=== PATIENT | female | born 1970 | race Caucasian/White ===

== ENCOUNTER 2024-11-07 23:18 | Emergency (ER) | payer MEDICAID, SELFPAY ==
[2024-11-07 23:23] VITALS: PULSE 82; RESP 16; O2SAT 98
[2024-11-07 23:26] VITALS: BMI 26.9
[2024-11-07 23:50] VITALS: BP 123/85; PULSE 82; RESP 18; TEMP 36.6; O2SAT 98
--- NOTE | 2024-11-07 23:57 | XR_ITS ---
Examination: CT lumbar spine, without contrast. 2-D sagittal reconstructions. 2-D coronal reconstructions. 3-D reconstructions. Date and time of exam:November 08, 2024 0008 hours INDICATIONS: Patient fell today with injury to lower back, lower back pain CTDI: vol (mGy):27.7 DLP: (mGycm):1107 Technique: Multiple 1.25 mm axial sections of the lumbar spine without intravenous contrast have been obtained. 2-D sagittal and coronal reconstructions have been obtained. 3-D reconstructions have been obtained. Low dose protocols were performed. One or more of the following dose reduction techniques were used; automated exposure control, adjustment of the mA and/or KV according to patient size, use of iterative reconstruction technique. Findings: Prominent osteopenia Acute fracture fourth sacral segment without major displacement Chronic compression superior endplate L2 L4-L5 3 mm central lumbar disc bulge L3-L4 4 mm central lumbar disc bulge IMPRESSION: Acute fracture fourth sacral segment
--- NOTE | 2024-11-07 23:57 | XR_ITS ---
Examination: CT thoracic spine, without contrast. 2-D sagittal reconstructions. 2-D coronal reconstructions. 3-D reconstructions. Date and time of exam:November 08, 2024 0008 hours INDICATIONS: Patient fell today with injury to the upper back, upper back pain CTDI: vol (mGy):22.3 DLP: (mGycm):868 Technique: Multiple 1.25 mm axial sections of the thoracic spine without intravenous contrast have been obtained. 2-D sagittal and coronal reconstructions have been obtained. 3-D reconstructions have been obtained. Low dose protocols were performed. One or more of the following dose reduction techniques were used; automated exposure control, adjustment of the mA and/or KV according to patient size, use of iterative reconstruction technique. Findings: Prominent osteopenia grade 1 anterolisthesis C5 on C6 Acute fracture T4 vertebral body, depression superior endplate and small chip off the anterior superior margin of this vertebral body Nondisplaced fracture left pedicle T5, axial image 101 Mild acute appearing depression superior endplate T8 Acute fracture T9 vertebral body, reduction in height 30% Acute fracture bilateral pedicles T10, axial image 163 IMPRESSION: Acute fracture T4 vertebral body including small chip off the anterior superior margin of this vertebral body Acute fracture left pedicle T5 without displacement Acute fracture or depression superior endplate T8 Acute fracture T9 vertebral body reduction in height 30% Acute fractures bilateral pedicles T10
--- NOTE | 2024-11-07 23:58 | PD.EDRME ---
Rapid Medical Screening Exam RME Arrival date/time: 11/07/24 23:18 53-year-old female past medical history of chronic back pain presents emergency department complaining of mid and low back pain after suffering a ground-level fall which she landed on her side and reports she felt like she twisted her back. patient denies any injury to head or neck area with no LOC. Chief Complaint: Back Pain/Injury Time Seen by Provider: 11/07/24 23:54 Vital signs: Vital Signs Temperature 97.8 F 11/07/24 23:50 Pulse Rate 82 11/07/24 23:50 Respiratory Rate 18 11/07/24 23:50 Blood Pressure 123/85 H 11/07/24 23:50 Pulse Oximetry (%) 98 11/07/24 23:50 Oxygen Delivery Method Room Air 11/07/24 23:50 Vital signs reviewed by provider: Yes
[2024-11-08] MEDS: HYDROcodone/APAP 5/325 TABLET 1 TAB PO (00:18)
--- NOTE | 2024-11-08 01:44 | PRELIM_ITS ---
CT scan of the lumbar spine without intravenous contrast (axial sections with sagittal and coronal reformats) November 08, 2024 0008 hours 3D reconstructed images were also provided. Clinical History: Low back pain, status post ground level fall Comparison: No prior study is available for comparison. Findings: The evaluation is slightly limited due to motion artifacts. There is a chronic anterior wedge compression fracture of L2 vertebral body. There is no evidence of acute fracture or traumatic subluxation of the lumbar vertebrae. Degenerative changes are identified in the lumbar spine with multilevel mild spinal canal and neural foraminal narrowing. The sacroiliac joints are intact and demonstrate degenerative changes. There is an acute nondisplaced fracture of the distal body of the sacrum with minimal presacral hemorrhage (sagittal image 57-62/133 series 13). Impression: Acute nondisplaced fracture of the distal body of the sacrum with minimal presacral hemorrhage. Other findings as described above. Suggest clinical correlation and follow up accordingly. Discussion Details: Results verbally communicated to : Fracisco Kan, Nurse Practitioner at 01:27 AM 11/08/2024 Report Electronically Signed By: Deuce Burnett 11/08/2024 1:44:15 AM [EST]
--- NOTE | 2024-11-08 01:45 | PRELIM_ITS ---
CT scan of the thoracic spine without intravenous contrast (axial sections with sagittal and coronal reformats) November 08, 2024 0008 hours 3D reconstructed images were also provided. Clinical History: Mid back pain, status post ground level fall Comparison: No prior study is available for comparison. Findings: There is an acute wedge compression fracture of the T9 vertebral body with mild prevertebral hemorrhage. There is a subtle acute depressed superior endplate fracture of T4 vertebral body with associated anterosuperior corner fracture (sagittal image 62-67/124 series 12). There is subtle depressed superior endplate fracture of T8 vertebra, of indeterminate age. No evidence of retropulsion or spinal canal narrowing. The bones are osteopenic. Multilevel Schmorl's nodes are seen in the lower thoracic spine. Mild degenerative changes are identified in the spine. No significant central canal or neural foraminal narrowing. A small hiatal hernia is present. Gastric sleeve surgery changes are noted. Impression: 1. Acute wedge compression fracture of T9 vertebral body with mild prevertebral hemorrhage. 2. Subtle acute depressed superior endplate fracture of T4 vertebral body with associated anterosuperior corner fracture. 3. Subtle depressed superior endplate fracture of T8 vertebra, of indeterminate age. 4. No evidence of retropulsion or significant spinal canal narrowing. 5. Other findings as described above. Suggest clinical correlation and follow up accordingly. Please also refer to report of CT lumbar spine. Discussion Details: Results verbally communicated to : Fracisco Kan, Nurse Practitioner at 01:24 AM 11/08/2024 Report Electronically Signed By: Deuce Burnett 11/08/2024 1:44:39 AM [EST]
--- NOTE | 2024-11-08 02:30 | PD.EDBACK ---
ED Back Injury Pain RME/HPI General Chief Complaint: Back Pain/Injury Stated Complaint: BACK PAIN Time Seen by Provider: 11/07/24 23:54 Arrival date/time: 11/07/24 23:18 RME / HPI RME / HPI Narrative: 11/07/24 23:18 53-year-old female past medical history of chronic back pain presents emergency department complaining of mid and low back pain after suffering a ground-level fall which she landed on her side and reports she felt like she twisted her back. patient denies any injury to head or neck area with no LOC. --------- Dr. Betancur?s Main ED Evaluation: 53yo female presents to the ED for a chief complaint of mid and low back pain. Patient states she slipped and fell this morning while she was cleaning. She notes she was drinking alcohol this morning. She denies any head strikes or LOC. Denies any headache, neck pain, extremity pain or any other associated symptoms. Related Data Home Medications ?Medication ?Instructions ?Recorded ?Confirmed buspirone 15 mg tablet 15 mg PO TID #0 tabs 07/04/17 09/06/19 ipratropium 20 mcg-albuterol 100 2 puff inhalation QID PRN sob #0 07/04/17 09/06/19 mcg/actuation mist for inhalation inhalations (Combivent Respimat) ferrous sulfate 325 mg (65 mg 325 mg PO QDAY 04/08/18 09/06/19 iron) tablet (Iron (ferrous sulfate)) loratadine 10 mg tablet (Loradamed) 10 mg PO QDAY 04/08/18 09/06/19 potassium chloride 8 mEq 8 meq PO TID 04/08/18 09/06/19 capsule,extended release sertraline 100 mg tablet 100 mg PO QDAY 04/08/18 09/06/19 lidocaine 5 % topical patch 1 patch topical QDAY 09/06/19 09/06/19 lurasidone 40 mg tablet (Latuda) 40 mg PO HS 09/06/19 09/06/19 trazodone 50 mg tablet 50 mg PO HS 09/06/19 09/06/19 Allergies Allergy/AdvReac Type Severity Reaction Status Date / Time aspirin AdvReac Severe BLEEDING Verified 11/07/24 23:26 ULCERS ibuprofen AdvReac Severe BLEEDING Verified 11/07/24 23:26 ULCERS Review of Systems Review of Systems Systems Reviewed: All systems reviewed, normal except as documented Past Medical History Past Medical History CARDIAC: Negative Congestive Heart Failure RESPIRATORY: Positive Chronic Obstructive Pulmonary Disease (COPD) GENITOURINARY: Negative Renal Disease ENDOCRINE: Negative Diabetes Mellitus Type 1 or Diabetes Mellitus Type 2 PSYCHO/SOCIAL: Positive Depression and Anxiety OTHER HISTORY: Positive Blood Transfusions Surgical History SURGICAL: Positive Gastric Bypass Surgery and Section Social History SMOKING STATUS: Current every day smoker 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 HEENT: Normocephalic, atraumatic; pupils equal, round, reactive to light; EOMI; mucous membranes pink, moist; oropharynx clear NECK: Supple LUNGS: CTABL; no wheezes, no rales, no rhonchi HEART: Regular rate, regular rhythm; normal S1, S2; no murmurs ABDOMEN: non distended; normal BS; soft, no tenderness, no guarding, no rebound; no masses, no organomegaly, no hernia BACK: no CVA tenderness, tenderness to palpation at the mid back, no muscle spasm EXTREMITIES: atraumatic; no edema NEUROLOGIC: awake; alert and oriented x4; cranial nerves II-XII grossly intact; no focal sensory or motor deficits PSYCHIATRIC: appropriate mood and affect SKIN: warm, dry, normal color; no rashes Course Course Course Narrative: 0600: Care signed out to Dr. Caldwell (emergency physician). Past medical, surgical, social and family history reviewed. Vitals and home medications reviewed. Results and treatment plan discussed. They will assume the care of the patient at this time and will follow the patient, pending callback from [facility]. Quality Measures none Orders Category Date Time Status CT Screening NOW Care 11/08/24 03:24 Active Frame Table Operator Helper Q4H START 00 Care 11/08/24 03:23 Active Continuous Pulse Oximetry NOW Care 11/08/24 03:23 Active IV [Insert IV] NOW Care 11/08/24 03:23 Active Miscellaneous Nursing Order NOW Care 11/08/24 02:[address] chest abdomen pelvis w Stat Exams 11/08/24 03:[address] lumbar spine wo con Stat Exams 11/07/24 23:[address] thoracic spine wo con Stat Exams 11/07/24 23:57 Taken CBC Stat Lab 11/08/24 04:50 Completed CMP [Comprehensive Metabolic Panel] Stat Lab 11/08/24 04:50 Completed Lipase Stat Lab 11/08/24 04:50 Completed HYDROcodone*/APAP 5/325 [Hammond 5/325] Med 11/07/24 23:58 Discontinued 1 tab PO X1 ONE HYDROmorphone INJ [Dilaudid Inj] Med 11/08/24 02:58 Discontinued 1 mg IM X1 ONE Ondansetron Odt [Zofran Odt] Med 11/08/24 02:58 Discontinued 4 mg PO X1 ONE Vital Signs Vital signs: Vital Signs Temperature 97.8 F 11/07/24 23:50 Pulse Rate 82 11/07/24 23:50 Respiratory Rate 18 11/07/24 23:50 Blood Pressure 123/85 H 11/07/24 23:50 Pulse Oximetry (%) 98 11/07/24 23:50 Oxygen Delivery Method Room Air 11/07/24 23:50 Back Pain / Injury MDM Narrative MDM Narrative:: 0252: Discussed case with [facility] transfer center regarding [possible transfer]. Discussed patients ED course, exam findings, and radiology results. Spoke with Dr. Artis, trauma surgeon, who states we need to talk with the neurosurgeon. 0300: Spoke with Dr. Harris, neurosurgeon from [facility], who states the patient needs to be transferred to a facility where kyphoplasty is performed. 0315: Spoke with [facility]'s transfer center, who states they will callback when their neurosurgeon is available. Scribe Attestation: 11/08/24 Mariel Fritz am scribing for and in the presence of Dr. Betancur. Patient data External records reviewed:: [facility] previous records (Per chart review, patient was seen here on 09/06/19 for back pain.) Clinical information provided by:: patient Social determinants that could affect healthcare access:: alcohol use Patient has the following chronic illnesses:: COPD How is presenting disease/condition affected by chronic disease/condition?: uneffected by Evaluation data The following diagnostics were reviewed and interpreted by me:: lab results and radiology exam(s) Lab and/or radiology exams considered but not ordered:: none Interpretation Summary: Teler[facility] Preliminary Report Draft Patient: [facility] A[facility]INO [facility]. Record#: [id number] Birthdate: 1970 Age/Sex: 53 / F Location: [facility] Attending Dr: Ordering Physician: Date of Service: Procedure(s): Accession Number(s): cc: ~ CT scan of the lumbar spine without intravenous contrast (axial sections with sagittal and coronal reformats) November 08, 2024 0008 hours 3D reconstructed images were also provided. Clinical History: Low back pain, status post ground level fall Comparison: No prior study is available for comparison. Findings: The evaluation is slightly limited due to motion artifacts. There is a chronic anterior wedge compression fracture of L2 vertebral body. There is no evidence of acute fracture or traumatic subluxation of the lumbar vertebrae. Degenerative changes are identified in the lumbar spine with multilevel mild spinal canal and neural foraminal narrowing. The sacroiliac joints are intact and demonstrate degenerative changes. There is an acute nondisplaced fracture of the distal body of the sacrum with minimal presacral hemorrhage (sagittal image 57-62/133 series 13). Impression: Acute nondisplaced fracture of the distal body of the sacrum with minimal presacral hemorrhage. Other findings as described above. Suggest clinical correlation and follow up accordingly. Discussion Details: Results verbally communicated to : Fracisco Kan, Nurse Practitioner at 01:27 AM 11/08/2024 Report Electronically Signed By: Deuce Burnett 11/08/2024 1:44:15 AM [EST] ------ [facility] Preliminary Report Draft Patient: GEN AQUINO [facility].Record#: [id number] Birthdate: 1970 Age/Sex: 53 / F Location: [facility] Attending Dr: Ordering Physician: Date of Service: Procedure(s): Accession Number(s): cc: ~ CT scan of the thoracic spine without intravenous contrast (axial sections with sagittal and coronal reformats) November 08, 2024 0008 hours 3D reconstructed images were also provided. Clinical History: Mid back pain, status post ground level fall Comparison: No prior study is available for comparison. Findings: There is an acute wedge compression fracture of the T9 vertebral body with mild prevertebral hemorrhage. There is a subtle acute depressed superior endplate fracture of T4 vertebral body with associated anterosuperior corner fracture (sagittal image 62-67/124 series 12). There is subtle depressed superior endplate fracture of T8 vertebra, of indeterminate age. No evidence of retropulsion or spinal canal narrowing. The bones are osteopenic. Multilevel Schmorl's nodes are seen in the lower thoracic spine. Mild degenerative changes are identified in the spine. No significant central canal or neural foraminal narrowing. A small hiatal hernia is present. Gastric sleeve surgery changes are noted. Impression: 1. Acute wedge compression fracture of T9 vertebral body with mild prevertebral hemorrhage. 2. Subtle acute depressed superior endplate fracture of T4 vertebral body with associated anterosuperior corner fracture. 3. Subtle depressed superior endplate fracture of T8 vertebra, of indeterminate age. 4. No evidence of retropulsion or significant spinal canal narrowing. 5. Other findings as described above. Suggest clinical correlation and follow up accordingly. Please also refer to report of CT lumbar spine. Discussion Details: Results verbally communicated to : Fracisco Kan, Nurse Practitioner at 01:24 AM 11/08/2024 Report Electronically Signed By: Deuce Burnett 11/08/2024 1:44:39 AM [EST] CBC is normal, CMP is normal, according to my interpretation. Medications / Prescriptions Medications or Prescriptions considered but not ordered:: none Medication administrations:: Medication Administration History Discontinued Medications Hydrocodone Bitart/Acetaminophen (Hydrocodone/Apap 5/325 Tablet) 1 tab PO X1 ONE Stop: 11/07/24 23:59 Last Admin: 11/08/24 00:18 Dose: 1 tab Documented By: VANDANA Hydromorphone HCl (Hydromorphone Inj 2 Mg/Ml Vial) 1 mg IM X1 ONE Stop: 11/08/24 02:59 Last Admin: 11/08/24 03:16 Dose: 1 mg Documented By: ANA Ondansetron HCl (Ondansetron Odt 4 Mg Tabrap) 4 mg PO X1 ONE; Protocol Stop: 11/08/24 02:59 Last Admin: 11/08/24 03:16 Dose: 4 mg Documented By: ANA see above Consultations Consultation(s) initiated? (list below): Yes Consultation #1 (Physician, Specialty, Details): see MDM Diagnosis Differential diagnosis back pain/injury: other (compression fracture, spinal cord injury, contusion, muscle spasm) Most likely diagnosis given after review of the tests above:: ground level fall, T9 compression fracture Admission Indicated Admission indicated?: not indicated Admission Request Was there a request for admission?: No Disposition Plan Disposition Plan: other (specify) (Signed out to Dr. Caldwell at 0600 pending callback from [facility].) Discharge Plan Prescriptions/Referrals Prescriptions/Med Rec: No Action buspirone 15 mg Tablet 15 mg PO TID Qty: 0 Combivent Respimat 20-100 mcg/actuation Mist 2 puff Inhalation QID PRN (Reason: sob) Qty: 0 potassium chloride 8 mEq Capsule, Extended Release 8 meq PO TID sertraline 100 mg Tablet 100 mg PO QDAY ferrous sulfate [Iron (ferrous sulfate)] 325 mg (65 mg iron) Tablet 325 mg PO QDAY loratadine [Loradamed] 10 mg Tablet 10 mg PO QDAY trazodone 50 mg Tablet 50 mg PO HS lidocaine 5 % Adhesive Patch,Medicated 1 patch topical QDAY Latuda 40 mg Tablet 40 mg PO HS Referrals: No Primary/Family,Physician [Primary Care Provider] - In 1 week Problem List Clinical Impression: Compression fracture of T9 vertebra, Ground-level fall Patient/Caregiver Discharge Instructions Print Language: Japanese
[2024-11-08 02:40] VITALS: BP 123/78; PULSE 80; RESP 17; TEMP 36.6; O2SAT 98
[2024-11-08] MEDS: ONDANSETRON ODT 4 MG TABRAP PO (03:16)
[2024-11-08] MEDS: HYDROmorphone INJ 2 MG/ML VIAL 1 MG IM (03:16)
--- NOTE | 2024-11-08 03:24 | XR_ITS ---
Examination: CT chest with intravenous contrast CT abdomen with intravenous contrast CT pelvis with intravenous contrast 2-D coronal and sagittal reconstructions Time of exam: November 08, 2024 at 0553 hrs. Indications: Patient fell today with injury to the chest and abdomen, chest pain abdomen pain back pain CTDI: vol (mGy) : 2521 DLP: (mGycm): 1278 Technique: Multiple axial images of the chest, abdomen and pelvis with intravenous contrast, 3.0 mm slice thickness. Images obtained post intravenous injection Isovue 370 60 cc. 2-D sagittal and coronal reconstructions. Low dose protocols were performed. One or more of the following dose reduction techniques were used; automated exposure control, adjustment of the mA and/or KV according to patient size, use of iterative reconstruction technique. Findings: Thoracic aorta pulmonary arteries intact No hemopericardium 8 mm calcified nodule in the lateral right lung No pneumothorax pulmonary contusion or hemothorax The manubrium the body of the sternum intact Acute nondisplaced fractures right third fourth, fifth, sixth ribs Fractures which appear old at multiple levels left ribs Fatty infiltration throughout the liver No liver splenic or renal laceration Cholelithiasis Abdominal aorta intact no free blood in the abdomen or pelvis Negative for pneumoperitoneum Urinary bladder intact Bones of the pelvis hips intact Impression: Acute appearing nondisplaced fractures right third, fourth, fifth, sixth ribs Thoracic aorta pulmonary arteries intact. No hemopericardium No pneumothorax pulmonary contusion or hemothorax Diffuse severe fatty infiltration throughout the liver No abdominal parenchymal laceration Abdominal aorta intact No free blood in the abdomen and pelvis
[2024-11-08 03:40] VITALS: PULSE 98
[2024-11-08 05:12] LABS: Basophils # (Auto) 0.1 Thou/mm3 (0.0-0.2); Basophils % (Auto) 1 % (0-2.5); Eosinophils # (Auto) 0.2 Thou/mm3 (0.0-0.5); Eosinophils % (Auto) 4 % (0-10); Hematocrit 32.2 % (36.0-46.0); Immature Granulocytes % (Auto) 0 % (0-0); Immature Granulocytes Auto 0.01 Thou/mm3 (0.00-0.00); Lymphocytes # (Auto) 1.5 Thou/mm3 (1.0-4.8); Lymphocytes % (Auto) 25 % (10-50); Mean Corpuscular HGB Conc 31.1 g/dl (31.0-37.0); Mean Corpuscular Volume 81 fL (80-100); Monocytes # (Auto) 0.7 Thou/mm3 (0.0-0.8); Monocytes % (Auto) 11 % (0-12); Neutrophils # (Auto) 3.6 Thou/mm3 (1.8-7.7); Neutrophils % (Auto) 59 % (37-80); Nucleated Red Blood Cell % 0 /100 WBC (0); Platelet Count 248 Thou/mm3 (140-440); White Blood Count 6.1 Thou/mm3 (3.6-11.0)
[2024-11-08 05:27] LABS: Alanine Aminotransferase 31 U/L (10-49); Albumin, Serum 3.4 gm/dL (3.5-5.0); Albumin/Globulin Ratio 1.2 (1.2-2.2); Alkaline Phosphatase 174 U/L (46-116); Anion Gap 10 (7-16); Aspartate Amino Transferase 87 U/L (0-34); BUN/Creatinine Ratio 23 Ratio (12-20); Bilirubin,Total 0.2 mg/dL (0.3-1.2); Blood Urea Nitrogen 9 mg/dL (9-23); Calcium 8.1 mg/dL (8.3-10.6); Calcium (Corrected) 8.6 mg/dL (8.5-10.1); Chloride 107 mMol/L (98-107); Creatinine (Component) 0.4 mg/dL (0.6-1.3); Estimated Creatinine Clearance 179.1 mL/min (>60); Globulin 2.8 gm/dL (2.3-3.5); Glucose 64 mg/dL (74-106); Lipase 24 U/L (12-53); Osmolality,Calculated 281 (275-295); Potassium 3.8 mMol/L (3.4-5.1); Sodium 143 mMol/L (136-145); Total Protein 6.2 gm/dL (5.7-8.2); eGFR > 60 See Note
--- NOTE | 2024-11-08 05:29 | PC.NURSE ---
Es from [facility] called to inform us that they will present pts case to the morning team and will call us back, awaiting call back at this time.
[2024-11-08 06:22] VITALS: BP 121/67; PULSE 80; RESP 18; TEMP 36.6; O2SAT 98
[2024-11-08] MEDS: MORPHINE SULF INJ 10 MG/ML VIAL 4 MG IVP (06:51)
[2024-11-08] MEDS: SODIUM CHLORIDE 0.9% 1000 ML 1,000 ML 125 ML IV (06:52)
--- NOTE | 2024-11-08 06:56 | PD.EDADDENDU ---
Emergency Room Addendum <Linette Barba - Last Filed: 11/08/24 06:57> Addendum Narrative: 0600: Care assumed from Dr. Betancur, the previous shift emergency physician. Past medical, surgical, social and family history reviewed. Vitals and home medications reviewed. I will assume the care of the patient at this time, pending call back from [facility] for neurosurgery. Please refer to the emergency department record for history and examination from initial visit.? Physical exam by me shows patient under no acute distress at this time. <Edvin Caldwell MD - Last Filed: 11/08/24 09:05> Addendum Narrative: 0600: Care assumed from Dr. Betancur, the previous shift emergency physician. Past medical, surgical, social and family history reviewed. Vitals and home medications reviewed. I will assume the care of the patient at this time, pending call back from [facility] for neurosurgery. Please refer to the emergency department record for history and examination from initial visit.? Physical exam by me shows patient under no acute distress at this time. The patient was signed out to me from Dr. Betancur at 6:00 this morning pending acceptance from [facility]. The patient had fracture of the thoracic and lumbar spine secondary to a fall that happened yesterday. 9 AM, I received a phone call from [facility] transfer nurse. She said that the patient has been accepted by . She also mentioned that the doctor wants the patient to be on a c-collar and backboard immobilizer before transfer. And we are doing so right now. Patient is also On n.p.o. IV fluid more specifically D5 half-normal saline because the blood sugar was 64. Diagnosis: Fracture lumbar spine Fracture thoracic spine Status post following Hypoglycemia Condition: Stable for transfer
[2024-11-08] MEDS: DEXTROSE 50%-WATER INJ 50 ML SYRINGE IV (07:55)
--- NOTE | 2024-11-08 08:05 | PC.NURSE ---
PT AWAKE, GCS 15. REPORTS 4/10 PAIN IN HER BACK. PT GIVEN D50 FOR LOW BS, PT DENIES HAVING DIABETES. PT UPDATED ON PLAN OF CARE AND AGREES. CALL JOHNSON REMAINS IN REACH.
[2024-11-08 08:23] VITALS: BP 149/98; PULSE 81; RESP 20; TEMP 36.7; O2SAT 99
--- NOTE | 2024-11-08 09:01 | PC.CM ---
Addendum entered by Brandie Hammond RN 11/08/24 10:13: Patient has been accepted by [facility] ED to ED. Accepting doctor is Dr. Shelton. Number to call and give report is [phone]. Packet complete with CD given to ambulance. Original Note: I spoke to Paty with the transfer center at [facility]. She states they did received images but they did not receive a packet. I faxed over paperwork today. I spoke to Hubert in our ED and she states they did not start a packet or make a CD. I will start a packet and call for a CD to be made.
[2024-11-08] MEDS: DEXTROSE 5%-0.45% NS 1,000 ML 125 ML IV (09:13)
[2024-11-08] MEDS: LORazepam 2 MG/ML VIAL 1 MG IVP (09:40)
== END 2024-11-08 10:13 | disposition short-term general hospital (02) ==
PROVIDERS: Emergency Medicine; Emergency Provider Emergency Medicine
DX: S22.070A Wedge compression fracture of T9-T10 vertebra, initial encounter for closed fracture (principal); S32.049A Unspecified fracture of fourth lumbar vertebra, initial encounter for closed fracture; S22.049A Unspecified fracture of fourth thoracic vertebra, initial encounter for closed fracture; S22.059A Unspecified fracture of T5-T6 vertebra, initial encounter for closed fracture; S22.069A Unspecified fracture of T7-T8 vertebra, initial encounter for closed fracture; S22.079A Unspecified fracture of T9-T10 vertebra, initial encounter for closed fracture; E16.2 Hypoglycemia, unspecified; W01.0XXA Fall on same level from slipping, tripping and stumbling without subsequent striking against object, initial encounter; Z75.1 Person awaiting admission to adequate facility elsewhere
CPT/HCPCS: 36415; 71260; 72128; 72131; 74177; 80053; 83690; 85025; 96361; 96372; 96374; 96375; 99285; A4649; J2060; J2270; J3490; J7030; J7042; Q0162; Q9967; A9270

== ENCOUNTER 2024-11-22 09:42 | Emergency (ER) | payer MEDICAID, SELFPAY ==
[2024-11-22 10:10] VITALS: BP 108/70; PULSE 78; RESP 18; TEMP 36.4; O2SAT 95; BMI 26.9
--- NOTE | 2024-11-22 10:14 | PD.EDURI ---
Upper Respiratory Inf. RME/HPI General Chief Complaint: Chest Pain Stated Complaint: CP FOR 2 DAYS, COUGHING UP GREEN SPUTUM Time Seen by Provider: 11/22/24 10:14 Arrival date/time: 11/22/24 09:42 53-year-old female presents the emergency department complains of cough, congestion patient reports that she has copious amounts of green and yellow sputum. Patient ports no chest pain or shortness of breath Limitations: no limitations Related Data Home Medications ?Medication ?Instructions ?Recorded ?Confirmed buspirone 15 mg tablet 15 mg PO TID #0 tabs 07/04/17 09/06/19 ipratropium 20 mcg-albuterol 100 2 puff inhalation QID PRN sob #0 07/04/17 09/06/19 mcg/actuation mist for inhalation inhalations (Combivent Respimat) ferrous sulfate 325 mg (65 mg 325 mg PO QDAY 04/08/18 09/06/19 iron) tablet (Iron (ferrous sulfate)) loratadine 10 mg tablet (Loradamed) 10 mg PO QDAY 04/08/18 09/06/19 potassium chloride 8 mEq 8 meq PO TID 04/08/18 09/06/19 capsule,extended release sertraline 100 mg tablet 100 mg PO QDAY 04/08/18 09/06/19 lidocaine 5 % topical patch 1 patch topical QDAY 09/06/19 09/06/19 lurasidone 40 mg tablet (Latuda) 40 mg PO HS 09/06/19 09/06/19 trazodone 50 mg tablet 50 mg PO HS 09/06/19 09/06/19 Previous Rx's ?Medication ?Instructions ?Recorded azithromycin 500 mg tablet See Rx Instructions PO .COMPLEX #6 11/22/24 tabs benzonatate 100 mg capsule 100 mg PO TID #14 caps 11/22/24 prednisone 20 mg tablet 20 mg PO BID 3 days #6 tabs 11/22/24 Allergies Allergy/AdvReac Type Severity Reaction Status Date / Time aspirin AdvReac Severe BLEEDING Verified 11/22/24 09:46 ULCERS ibuprofen AdvReac Severe BLEEDING Verified 11/22/24 09:46 ULCERS Review of Systems Review of Systems Systems Reviewed: All systems reviewed, normal except as documented Constitutional Constitutional: Reports system reviewed and no additional complaints, except as documented, Reports body ache(s), Denies fever(s) and Reports headache(s) Eyes Eyes: Reports system reviewed and no additional complaints, except as documented and Denies blurry vision ENT Ears, Nose, Mouth, and Throat: Reports system reviewed and no additional complaints, except as documented, Reports headache(s), Reports nasal congestion and Reports nasal discharge Cardiovascular Cardiovascular: Reports system reviewed and no additional complaints, except as documented, Denies chest pain and Denies dyspnea Respiratory Respiratory: Reports system reviewed and no additional complaints, except as documented, Reports chest congestion, Reports cough and Denies dyspnea Gastrointestinal Gastrointestinal: Reports system reviewed and no additional complaints, except as documented and Denies abdominal pain Integumentary/Breasts Skin/Breast: Reports system reviewed and no additional complaints, except as documented and Denies rash Neurologic Neurologic: Reports system reviewed and no additional complaints, except as documented, Reports as per HPI and Reports headache(s) Past Medical History Past Medical History CARDIAC: Negative Cardiac Disorders or Congestive Heart Failure RESPIRATORY: Positive Chronic Obstructive Pulmonary Disease (COPD); Negative Asthma GENITOURINARY: Negative Renal Disease ENDOCRINE: Negative Diabetes Mellitus Type 1 or Diabetes Mellitus Type 2 HEMATOLOGIC: Negative Sickle Cell Disease PSYCHO/SOCIAL: Positive Depression and Anxiety OTHER HISTORY: Positive Blood Transfusions Surgical History SURGICAL: Positive Gastric Bypass Surgery and Section Social History SMOKING STATUS: Former smoker SUBSTANCE USE: former substance user and methamphetamine ED Exam General Limitations: Present no limitations General appearance: Present alert and in no apparent distress Head Head exam: Present atraumatic, normocephalic and normal inspection Eye Eye exam: Present normal appearance, PERRL and EOMI; Absent conjunctival injection ENT ENT exam: Present normal exam, normal oropharynx and mucous membranes moist Neck Neck exam: Present normal inspection, full ROM and trachea midline Chest Chest inspection: Present normal inspection and symmetric chest wall rise Respiratory Respiratory exam: Present normal lung sounds bilaterally; Absent respiratory distress Cardiovascular Cardiovascular exam: Present regular rate, normal rhythm and normal heart sounds Abdominal Exam Abdominal exam: Present soft and normal bowel sounds; Absent distention, tenderness, guarding, rebound or rigidity Extremities Exam Extremities exam: Present normal inspection and full ROM Back Exam Back exam: Present normal inspection and full ROM Neurological Exam Neurological exam: Present alert, oriented X3 and CN II-XII intact Psychiatric Psychiatric exam: Present normal affect and normal mood Skin Skin exam: Present warm, dry, intact and normal color Course Quality Measures none Vital Signs Vital signs: Vital Signs Temperature 97.5 F 0224/25 10:10 Pulse Rate 78 11/22/24 10:10 Respiratory Rate 18 11/22/24 10:10 Blood Pressure 108/70 11/22/24 10:10 Pulse Oximetry (%) 95 11/22/24 10:10 Oxygen Delivery Method Room Air 11/22/24 10:10 O2 saturation 95% room air within normal limits Upper Respiratory Infection MDM Narrative MDM Narrative:: 53-year-old female presents the emergency department complains of cough, congestion patient reports that she has copious amounts of green and yellow sputum. Patient ports no chest pain or shortness of breath Symptoms consistent with URI patient will treat with course of antibiotics steroids and cough medicine Patient has no tachypnea or dyspnea no critical breathing Patient discharged home in no distress to follow-up with primary care doctor in the next 24 to 48 hours and for any worsening symptoms to return to the ER immediately Patient data External records reviewed:: [facility] previous records Clinical information provided by:: patient Social determinants that could affect healthcare access:: none Patient has the following chronic illnesses:: History How is presenting disease/condition affected by chronic disease/condition?: uneffected by Evaluation data The following diagnostics were reviewed and interpreted by me:: other (specify) (N/A) Lab and/or radiology exams considered but not ordered:: Consider not ordered Interpretation Summary: N/A Medications / Prescriptions Medications or Prescriptions considered but not ordered:: Given Medication administrations:: Given Consultations Consultation(s) initiated? (list below): No Diagnosis Upper Respiratory Differential Diagnosis: upper respiratory infection, otitis media, sinusitis, viral infection and bronchitis Most likely diagnosis given after review of the tests above:: URI Admission Indicated Admission indicated?: not indicated Admission Request Was there a request for admission?: No Disposition Plan Disposition Plan: Discharge Discharge Attestation Discharge Attestation: The patient and all family members were given an opportunity to ask questions and understood the discharge instructions. Discharge instructions specifically effects, indications for sooner follow up or return to the emergency department, and the expected course of current diagnosis. Patient condition: Stable Discharge Plan Plan Patient Disposition: HOME (Self Care) Disposition Comment: Stable Prescriptions/Referrals Prescriptions/Med Rec: New prednisone 20 mg tablet 20 mg PO BID 3 Days Qty: 6 0RF benzonatate 100 mg capsule 100 mg PO TID Qty: 14 0RF azithromycin 500 mg tablet See Rx Instructions .ROUTE .COMPLEX Qty: 6 0RF Rx Instructions: take 500 mg today (day 1), then 250 mg for 4 days (days 2-5) No Action buspirone 15 mg Tablet 15 mg PO TID Qty: 0 Combivent Respimat 20-100 mcg/actuation Mist 2 puff Inhalation QID PRN (Reason: sob) Qty: 0 potassium chloride 8 mEq Capsule, Extended Release 8 meq PO TID sertraline 100 mg Tablet 100 mg PO QDAY ferrous sulfate [Iron (ferrous sulfate)] 325 mg (65 mg iron) Tablet 325 mg PO QDAY loratadine [Loradamed] 10 mg Tablet 10 mg PO QDAY trazodone 50 mg Tablet 50 mg PO HS lidocaine 5 % Adhesive Patch,Medicated 1 patch topical QDAY Latuda 40 mg Tablet 40 mg PO HS Problem List Clinical Impression: URI (upper respiratory infection), Cough Patient/Caregiver Discharge Instructions Education Materials: Preventing Common Respiratory ... Additional Instructions: Please follow up with your primary care doctor in the next 24-48hrs for any worsening symptoms return here immediately Print Language: Bengali Stand Alone Forms: Liz Award Info., Patient Portal Info Letter PA/RAWHIDE TRIMMER Supervising Physician PA/RAWHIDE TRIMMER Supervising Physician: Dr. Gaviria
== END 2024-11-22 10:28 | disposition home or self-care (01) ==
LOC: SERX 10:25
PROVIDERS: Emergency Provider Internal Medicine Rheumatology
DX: J06.9 Acute upper respiratory infection, unspecified (principal); R05.9 Cough, unspecified
CPT/HCPCS: 99281

== ENCOUNTER 2024-11-29 20:21 | Emergency (ER) | payer MEDICAID, SELFPAY ==
[2024-11-29 20:21] VITALS: BMI 30.2
[2024-11-29 21:04] VITALS: BP 150/80; PULSE 99; RESP 20; TEMP 36.6; O2SAT 94
--- NOTE | 2024-11-29 21:30 | XR_ITS ---
Examination: PA lateral chest 2 views Technique: Upright AP lateral chest 2 views Exam date and time: November 29, 2024 2156 hrs. Comparison February 05, 2021 Indications: Onset chest pain today. Findings: Normal heart size Mild opacity both lung bases No pulmonary edema Prominent osteopenia Impression: Suspicious for early bibasilar pneumonia
--- NOTE | 2024-11-29 21:30 | EKG_ITS ---
[facility] Test Date: 2024-11-29 Pat Name: GEN AQUINO Department: Room: - Gender: Female [employer]: : 1970 Requested By: Fracisco Kan ([facility]) Order Number: [id number] Reading MD: Fracisco Kan ([facility]) Measurements Intervals [place] Rate: 103 P: 10 WI: 142 QRS: 50 QRSD: 81 T: 59 QT: 347 QTc: 456 Interpretive Statements SINUS TACHYCARDIA LEFT VENTRICULAR HYPERTROPHY AND ST-T CHANGE [VOLTAGE CRITERIA PLUS ST/T ABNORMALITY] No previous ECG available for comparison /store/S0/[id number].pdf
--- NOTE | 2024-11-29 21:32 | PD.EDRME ---
Rapid Medical Screening Exam RME Arrival date/time: 11/29/24 20:21 53-year-old female presents emergency department complaining of generalized weakness, shortness of breath, and rectal bleeding. Chief Complaint: Shortness of Breath/Dyspnea Time Seen by Provider: 11/29/24 20:24 Vital signs: Vital Signs Temperature 97.9 F 11/29/24 21:04 Pulse Rate 99 11/29/24 21:04 Respiratory Rate 20 11/29/24 21:04 Blood Pressure 150/80 H 11/29/24 21:04 Pulse Oximetry (%) 94 L 11/29/24 21:04 Oxygen Delivery Method Room Air 11/29/24 21:04 Vital signs reviewed by provider: Yes
[2024-11-29 21:51] LABS: Basophils % (Auto) 0 % (0-2.5); Eosinophils # (Auto) 0.2 Thou/mm3 (0.0-0.5); Eosinophils % (Auto) 1 % (0-10); Hematocrit 35.1 % (36.0-46.0); Hemoglobin 11.1 g/dL (12.0-16.0); Immature Granulocytes % (Auto) 2 % (0-0); Immature Granulocytes Auto 0.23 Thou/mm3 (0.00-0.00); Lymphocytes # (Auto) 1.8 Thou/mm3 (1.0-4.8); Lymphocytes % (Auto) 13 % (10-50); Mean Corpuscular HGB Conc 31.6 g/dl (31.0-37.0); Mean Corpuscular Hemoglobin 25.9 pg (25.0-35.0); Mean Corpuscular Volume 82 fL (80-100); Monocytes # (Auto) 1.4 Thou/mm3 (0.0-0.8); Monocytes % (Auto) 11 % (0-12); Neutrophils # (Auto) 9.7 Thou/mm3 (1.8-7.7); Neutrophils % (Auto) 73 % (37-80); Nucleated Red Blood Cell % 0 /100 WBC (0); Platelet Count 396 Thou/mm3 (140-440); RDW Standard Deviation 55.8 fL (36.4-46.3); Red Blood Count 4.29 Miln/mm3 (4.00-5.20); White Blood Count 13.2 Thou/mm3 (3.6-11.0)
[2024-11-29 22:08] LABS: Partial Thromboplastin Time 30.9 Seconds (22.0-36.0); Prothrombin Time 11.1 Seconds (9.0-12.2)
[2024-11-29 22:12] LABS: B-Type Natriuretic Peptide 22 pg/mL (0-100)
[2024-11-29 22:14] LABS: Alanine Aminotransferase 17 U/L (10-49); Albumin, Serum 3.8 gm/dL (3.5-5.0); Albumin/Globulin Ratio 1.1 (1.2-2.2); Alkaline Phosphatase 180 U/L (46-116); Anion Gap 8 (7-16); Aspartate Amino Transferase 16 U/L (0-34); BUN/Creatinine Ratio 15 Ratio (12-20); Bilirubin,Total 0.3 mg/dL (0.3-1.2); Blood Urea Nitrogen 6 mg/dL (9-23); Calcium (Corrected) 9.2 mg/dL (8.5-10.1); Carbon Dioxide 25.7 mMol/L (20.0-31.0); Chloride 101 mMol/L (98-107); Creatinine (Component) 0.4 mg/dL (0.6-1.3); Estimated Creatinine Clearance 151.6 mL/min (>60); Globulin 3.4 gm/dL (2.3-3.5); Glucose 87 mg/dL (74-106); Osmolality,Calculated 266 (275-295); Potassium 4.1 mMol/L (3.4-5.1); Sodium 135 mMol/L (136-145); Total Protein 7.2 gm/dL (5.7-8.2); Troponin I < 0.002 ng/mL (0.0-0.045); eGFR > 60 See Note
[2024-11-29 23:45] VITALS: BP 128/82; PULSE 95; RESP 17; TEMP 36.8; O2SAT 93
--- NOTE | 2024-11-30 00:04 | EDNOTE_ITS ---
ED SOB =RME/HPI General Chief Complaint: Shortness of Breath/Dyspnea Stated Complaint: SOB/BACK PAIN / RECTAL BLEEDING Time Seen by Provider: 11/29/24 20:24 Arrival date/time: 11/29/24 20:21 RME / HPI RME / HPI Narrative: 11/29/24 20:21 53-year-old female presents emergency department complaining of generalized weakness, shortness of breath, and rectal bleeding. Dr. Betancur?s Main ED Evaluation: 53yo female presents to the ED for a chief complaint of a productive cough. Patient states she's had a productive cough with green phlegm for the last 4 days, reporting she started feeling short of breath, so she came in for evaluation. She states she's been falling since she's been home. She denies any headache, neck pain, chest pain, abdominal pain or any other associated symptoms. She denies being on blood thinners. Related Data Home Medications ?Medication ?Instructions ?Recorded ?Confirmed buspirone 15 mg tablet 15 mg PO TID #0 tabs 7 09/06/19 ipratropium 20 mcg-albuterol 100 2 puff inhalation QID PRN sob #0 07/04/17 09/06/19 mcg/actuation mist for inhalation inhalations (Combivent Respimat) ferrous sulfate 325 mg (65 mg 325 mg PO QDAY 04/08/18 09/06/19 iron) tablet (Iron (ferrous sulfate)) loratadine 10 mg tablet (Loradamed) 10 mg PO QDAY 03/2909/06/19 potassium chloride 8 mEq 8 meq PO TID 04/08/18 capsule,extended release sertraline 100 mg tablet 100 mg PO QDAY 04/08/18 1206/17 lidocaine 5 % topical patch 1 patch topical QDAY 09/0609/06/19 lurasidone 40 mg tablet (Latuda) 40 mg PO HS 09/06/19 09/06/19 trazodone 50 mg tablet 50 mg PO HS 09/06/19 9 Previous Rx's ?Medication ?Instructions ?Recorded azithromycin 500 mg tablet See Rx Instructions PO .COM PLEX #6 11/22/24 tabs benzonatate 100 mg capsule 100 mg PO TID #14 caps 10/31 01/21 doxycycline monohydrate 100 mg 100 mg PO BID Community -acquired 11/30/24 capsule pneumonia #14 caps Allergies Allergy/AdvReac Type Severity Reaction Status Date / Time aspirin AdvReac Severe BLEEDING Verified 11/22/24 09:46 ULCERS ibuprofen AdvReac Severe BLEEDING Verified 11/22/24 09:46 ULCERS Review of Systems Review of Systems Systems Reviewed: All systems reviewed, normal except as documented Past Medical History Past Medical History CARDIAC: Negative Cardiac Disorders or Congestive Heart Failure RESPIRATORY: Positive Chronic Obstructive Pulmonary Disease (COPD); Negative Asthma GENITOURINARY: Negative Renal Disease ENDOCRINE: Negative Diabetes Mellitus Type 1 or Diabetes Mellitus Type 2 HEMATOLOGIC: Negative Sickle Cell Disease PSYCHO/SOCIAL: Positive Depression and Anxiety OTHER HISTORY: Positive Blood Transfusions Surgical History SURGICAL: Positive Gastric Bypass Surgery and Section Social History SMOKING STATUS: Former smoker SUBSTANCE USE: former substance user and methamphetamine ED Exam Narrative Physical exam: GENERAL APPEARANCE: alert and oriented x 4, well-developed, well-nourished, no acute distress VITALS: All vitals were reviewed and the pulse ox is 94% on room air, which is normal according to my interpretation. HEENT: Normocephalic, atraumatic; pupils equal, round, reactive to light; EOMI; mucous membranes pink, moist; oropharynx clear; adentulous NECK: Supple LUNGS: no wheezes, rales at the right base, no rhonchi HEART: Regular rate, regular rhythm; normal S1, S2; no murmurs ABDOMEN: non distended; normal BS; soft, no tenderness, no guarding, no rebound; no masses, no organomegaly, no hernia BACK: no CVA tenderness EXTREMITIES: atraumatic; no edema NEUROLOGIC: awake; alert and oriented x4; cranial nerves II-XII grossly intact; no focal sensory or motor deficits PSYCHIATRIC: appropriate mood and affect SKIN: warm, dry, normal color; no rashes Course Course Course Narrative: CXR is ordered for determining the etiology of shortness of breath. Quality Measures none Orders Category Date Time Status EKG (ED ONLY) *Do not use* NOW Care 11/29/24 21:30 Completed EKG (ED Only) Stat Exams 11/29/24 21:30 Draft XR chest 2V Stat Exams 11/29/24 21:30 Completed BNP [B-Type Natriuretic Peptide] Stat Lab 11/29/24 21:35 Completed CBC Stat Lab 11/29/24 21:35 Completed Comprehensive Metabolic Panel Stat Lab 11/29/24 21:35 Completed Drug Screen,Urine Stat Lab 11/30/24 00:00 Completed PT [Prothrombin Time with INR] Stat Lab 11/29/24 21:35 Completed PTT [Partial Thromboplastin Time] Stat Lab 11/29/24 21:35 Completed Troponin I Stat Lab 11/29/24 21:35 Completed Urinalysis, C/S if Indicated Stat Lab 11/30/24 00:00 Completed Vital Signs Vital signs: Vital Signs Temperature 97.9 F 11/29/24 21:04 Pulse Rate 99 11/29/24 21:04 Respiratory Rate 20 11/29/24 21:04 Blood Pressure 150/80 H 11/29/24 21:04 Pulse Oximetry (%) 94 L 11/29/24 21:04 Oxygen Delivery Method Room Air 11/29/24 21:04 Shortness of Breath / Dyspnea MDM Narrative MDM Narrative:: Scribe Attestation: 11/30/24 Mariel Fritz am scribing for and in the presence of Dr. Betancur. Patient data External records reviewed:: [facility] previous records (Per chart review, patient was seen here on 11/22/24 for a cough.) Clinical information provided by:: patient Social determinants that could affect healthcare access:: none Patient has the following chronic illnesses:: COPD How is presenting disease/condition affected by chronic disease/condition?: exacerbated by Evaluation data The following diagnostics were reviewed and interpreted by me:: lab results, radiology exam(s) and EKG tracing(s) Lab and/or radiology exams considered but not ordered:: none Interpretation Summary: WBC count is elevated at 13.2, PT and INR are normal, PTT is normal, CMP is normal, Troponin is normal, BNP is normal, UDS is positive for methamphetamine and marijuana, according to my interpretation. EKG done at 2144, sinus tachycardia, rate of 103, normal axis, no ectopy, LVH, nonspecific ST abnormalities, no STEMI, according to my interpretation. [facility] Report Signed Patient: GEN AQUINO [facility]. Record#: [id number] Birthdate: 1970 Age/Sex: 53 / F Location: [facility] Attending Dr: Ordering Physician: Mesha Kan ([employer]),Fracisco KIM Date of Service: 11/29/24 Procedure(s): XR chest 2V Accession Number(s): [id number] cc: Jethro Mcallister MD; NO PRIMARY/FAMILY,PHYSICIAN; Mesha Kan ([employer]),Fracisco KIM~ Examination: PA lateral chest 2 views Technique: Upright AP lateral chest 2 views Exam date and time: November 29, 2024 2156 hrs. Comparison February 05, 2021 Indications: Onset chest pain today. Findings: Normal heart size Mild opacity both lung bases No pulmonary edema Prominent osteopenia Impression: Suspicious for early bibasilar pneumonia Dictated By: Jethro Mcallister MD Signed By: <Electronically signed by Jethro Mcallister MD in OV> 11/29/24 2218 Medications / Prescriptions Medications or Prescriptions considered but not ordered:: none Medication administrations:: see above, if any Consultations Consultation(s) initiated? (list below): No Diagnosis Shortness of Breath Differential Diagnosis: congestive heart failure, community acquired pneumonia, pulmonary embolism and other (COVID, Influenza, viral URI) Most likely diagnosis given after review of the tests above:: see below Admission Indicated Admission indicated?: not indicated Admission Request Was there a request for admission?: No Disposition Plan Disposition Plan: Discharge Discharge Attestation Discharge Attestation: The patient and all family members were given an opportunity to ask questions and understood the discharge instructions. Discharge instructions specifically effects, indications for sooner follow up or return to the emergency department, and the expected course of current diagnosis. Patient condition: Stable Discharge Plan Plan Patient Disposition: HOME (Self Care) Disposition Comment: Stable for discharge home Patient condition on transfer: Stable Prescriptions/Referrals Prescriptions/Med Rec: New doxycycline monohydrate 100 mg capsule 100 mg PO BID Qty: 14 0RF No Action buspirone 15 mg Tablet 15 mg PO TID Qty: 0 Combivent Respimat 20-100 mcg/actuation Mist 2 puff Inhalation QID PRN (Reason: sob) Qty: 0 potassium chloride 8 mEq Capsule, Extended Release 8 meq PO TID sertraline 100 mg Tablet 100 mg PO QDAY ferrous sulfate [Iron (ferrous sulfate)] 325 mg (65 mg iron) Tablet 325 mg PO QDAY loratadine [Loradamed] 10 mg Tablet 10 mg PO QDAY trazodone 50 mg Tablet 50 mg PO HS lidocaine 5 % Adhesive Patch,Medicated 1 patch topical QDAY Latuda 40 mg Tablet 40 mg PO HS benzonatate 100 mg capsule 100 mg PO TID Qty: 14 0RF azithromycin 500 mg tablet See Rx Instructions .ROUTE .COMPLEX Qty: 6 0RF Rx Instructions: take 500 mg today (day 1), then 250 mg for 4 days (days 2-5) [facility] - In 1 week Problem List Clinical Impression: Community acquired pneumonia, Methamphetamine addiction Patient/Caregiver Discharge Instructions Discharge Activity: activity as tolerated Education Materials: What Is Pneumonia?, Addiction: Getting Help, Addiction: Your Treatment Options, Addiction Recovery Counseling, When You Have Pneumonia, Preventing Common Respiratory ..., ED Pneumonia (Adult) Additional Instructions: Please return to the emergency department if you have any worsening or if you are not improving within the next 48 hours and we will help you. Otherwise you should follow-up with your primary care doctor within the next several days or follow-up in the [facility]. Print Language: Serbian Stand Alone Forms: Liz Award Info., Patient Portal Info Letter
[2024-11-30 00:07] LABS: Collection Type, Urine Clean Catch
[2024-11-30 00:12] LABS: Bilirubin,Urine Negative (Negative); Blood,Urine Negative (Negative); Clarity,Urine Clear (Clear/Hazy); Color,Urine Yellow (Lt Yel-Yel); Culture Indicated,Urine Not Indicated; Glucose, Urine Negative (Negative); Ketones,Urine Negative (Negative); Leukocyte Esterase,Urine Negative (Negative); Nitrite,Urine Negative (Negative); PH,Urine 6.5 (5.0-7.0); Protein,Urine Trace (Neg - Trace); RBC,Urine 3 /hpf (0-3); Specific Gravity,Urine 1.018 (1.001-1.035); Sperm,Urine Present; Squamous Epithelial Cell,Urine 4 /hpf (0-5); WBC,Urine 2 /hpf (0-5)
[2024-11-30 01:11] LABS: Amphetamine/Methamp Scrn,U Positive (Negative); Barbiturate Screen,Urine Negative (Negative); Benzodiazepines Screen,Urine Negative (Negative); Benzoylecgonine Screen, Ur Negative (Negative); Fentanyl Screen,Urine Negative (Negative); Opiate Screen,Urine Negative (Negative); THC Screen,Urine Positive (Negative)
[2024-11-30 02:14] VITALS: BP 120/80; PULSE 79; RESP 18; TEMP 36.6; O2SAT 96
[2024-11-30 03:35] VITALS: BP 123/80; PULSE 83; RESP 16; TEMP 36.7; O2SAT 95
== END 2024-11-30 04:01 | disposition home or self-care (01) ==
PROVIDERS: Emergency Provider Emergency Medicine
DX: J18.9 Pneumonia, unspecified organism (principal); J44.0 Chronic obstructive pulmonary disease with (acute) lower respiratory infection; F15.20 Other stimulant dependence, uncomplicated; F12.90 Cannabis use, unspecified, uncomplicated; R00.0 Tachycardia, unspecified; Z87.891 Personal history of nicotine dependence; Z98.84 Bariatric surgery status; Z88.6 Allergy status to analgesic agent
CPT/HCPCS: 36415; 71046; 80053; 80307; 81001; 83880; 84484; 85025; 85610; 85730; 86850; 86900; 86901; 93005; 99283

== ENCOUNTER 2024-12-10 10:51 | Emergency (ER) | payer MEDICAID, SELFPAY ==
[2024-12-10 11:01] VITALS: BP 98/64; PULSE 121; RESP 19; TEMP 36.8; O2SAT 98; BMI 30.2
[2024-12-10 11:26] VITALS: PULSE 157; RESP 18; O2SAT 98
--- NOTE | 2024-12-10 11:53 | EKG_ITS ---
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
--- NOTE | 2024-12-10 11:53 | XR_ITS ---
EXAMINATION: XR chest 1V ORDERING PROVIDER: JULIO Tellez HISTORY: sob TECHNIQUE: Single portable AP radiograph of the chest. COMPARISON: 11/29/2024, chest radiographs. 07/31/2018, chest radiographs. FINDINGS: Lines and Tubes: None. Lungs: Improving bibasilar opacities. Pleura: No pneumothorax or pleural effusion. Cardiomediastinal Silhouette: Uncoiled aorta. Probable small hiatal hernia. Soft Tissues/Bones: Moderate S-shaped scoliotic curvature. Malalignment right surgical neck humeral fracture again seen. IMPRESSION: Improving bibasilar pneumonia.
--- NOTE | 2024-12-10 11:57 | PD.EDSOB ---
ED SOB =RME/HPI General Chief Complaint: Shortness of Breath/Dyspnea Stated Complaint: SOB, PALPITATIONS Time Seen by Provider: 12/10/24 11:49 Arrival date/time: 12/10/24 10:51 RME / HPI RME / HPI Narrative: 53-year-old female patient with significant history of chronic smoking, anxiety, COPD, came in for evaluation regarding worsening cough for the last 3 days. Associated with thick mucus and shortness of breath. Patient denies any fever. Denies any chest pain. Patient earlier today got worsening shortness of breath with hyperventilation and worsening anxiety like symptoms. No medication was taken prior to arrival. Patient was seen here 2 weeks ago and was diagnosed with pneumonia patient told me that she finished her antibiotic last week. Related Data Home Medications ?Medication ?Instructions ?Recorded ?Confirmed buspirone 15 mg tablet 15 mg PO TID #0 tabs 07/04/17 09/06/19 ipratropium 20 mcg-albuterol 100 2 puff inhalation QID PRN sob #0 07/04/17 09/06/19 mcg/actuation mist for inhalation inhalations (Combivent Respimat) ferrous sulfate 325 mg (65 mg 325 mg PO QDAY 04/08/18 09/06/19 iron) tablet (Iron (ferrous sulfate)) loratadine 10 mg tablet (Loradamed) 10 mg PO QDAY 04/08/18 09/06/19 potassium chloride 8 mEq 8 meq PO TID 04/08/18 09/06/19 capsule,extended release sertraline 100 mg tablet 100 mg PO QDAY 04/08/18 09/06/19 lidocaine 5 % topical patch 1 patch topical QDAY 09/06/19 09/06/19 lurasidone 40 mg tablet (Latuda) 40 mg PO HS 09/06/19 09/06/19 trazodone 50 mg tablet 50 mg PO HS 09/06/19 09/06/19 Previous Rx's ?Medication ?Instructions ?Recorded azithromycin 500 mg tablet See Rx Instructions PO .COMPLEX #6 11/22/24 tabs benzonatate 100 mg capsule 100 mg PO TID #14 caps 11/22/24 doxycycline monohydrate 100 mg 100 mg PO BID Community-acquired 11/30/24 capsule pneumonia #14 caps levofloxacin 750 mg tablet 750 mg PO Q24H 7 days #7 tabs 12/10/24 Allergies Allergy/AdvReac Type Severity Reaction Status Date / Time aspirin AdvReac Severe BLEEDING Verified 11/22/24 09:46 ULCERS ibuprofen AdvReac Severe BLEEDING Verified 11/22/24 09:46 ULCERS Review of Systems Review of Systems Narrative Review of Systems: Review of system reviewed and within normal limits except mentioned in HPI ED Exam Narrative Physical exam: VITAL SIGNS: Reviewed. GENERAL APPEARANCE: Alert and interactive, follows commands, no acute distress, HEAD AND FACE: Non-traumatic. ENT: PERRL, pink conjunctivitis, eyelid no trauma, Mucous membrane moist. NECK: Supple, nontender, no nuchal rigidity. CHEST: No tenderness, no crepitus, no paradoxical movement, no retractions. LUNGS: Clear, well ventilated, symmetric, no rales, no wheezing, no ronchi, no stridor, good breath sounds bilaterally. HEART: Regular rate, regular rhythm, no murmur, no gallops. ABDOMEN: Soft, positive bowel sounds, nondistended, no guarding, nontender, no rebound, no masses, RECTAL: Deferred. GENITAL: Deferred. NEUROLOGICAL: Gross motor function intact sensory function intact, Appropriate for age. MUSCULOSKELETAL: low back nontender, full range of motion. EXTREMITIES: Nontender, full range of motion. SKIN: Color pink, dry, no rash, no lacerations, no abrasions, no contusions. LYMPHATICS: Deferred. Course Quality Measures none Orders Category Date Time Status EKG (ED ONLY) *Do not use* NOW Care 12/10/24 11:54 Completed EKG (ED Only) Stat Exams 12/10/24 11:53 Draft XR chest 1V Stat Exams 12/10/24 11:53 Completed B-Type Natriuretic Peptide Stat Lab 12/10/24 12:17 Completed CBC Stat Lab 12/10/24 12:17 Completed Comprehensive Metabolic Panel Stat Lab 12/10/24 12:17 Completed Partial Thromboplastin Time Stat Lab 12/10/24 12:17 Completed Troponin I Stat Lab 12/10/24 12:17 Completed LORazepam [Ativan] Med 12/10/24 11:57 Discontinued 1 mg PO X1 ONE predniSONE Med 12/10/24 11:57 Discontinued 60 mg PO X1 ONE Vital Signs Vital signs: Vital Signs Temperature 98.3 F 12/10/24 11:01 Pulse Rate 121 H 12/10/24 11:01 Respiratory Rate 19 12/10/24 11:01 Blood Pressure 98/64 12/10/24 11:01 Pulse Oximetry (%) 98 12/10/24 11:01 Oxygen Delivery Method Nasal Cannula 12/10/24 11:01 Oxygen Flow Rate 3 12/10/24 11:01 Shortness of Breath / Dyspnea [facility] Narrative [facility] Narrative:: 53-year-old female patient with significant history of chronic smoking, anxiety, COPD, came in for evaluation regarding worsening cough for the last 3 days. Associated with thick mucus and shortness of breath. Patient denies any fever. Denies any chest pain. Patient earlier today got worsening shortness of breath with hyperventilation and worsening anxiety like symptoms. No medication was taken prior to arrival. Patient was seen here 2 weeks ago and was diagnosed with pneumonia patient told me that she finished her antibiotic last week. Patient's workup today all came back unremarkable no leukocytosis noted. Chest x-ray showed improving pneumonia otherwise unremarkable results discussed with the patient EKG showed sinus tachycardia, ventricular rate of 105 bpm, ST segment elevation depression noted. Patient was noted to be doing better, no recurrence of panic attack like symptoms in the ED. Patient is satting 98% on room air. Prior to discharge Patient appears nontoxic and hemodynamically stable. Patient discharged home and instructed to follow-up with primary care provider in 24 to 48 hours. Instructed to return to the emergency department immediately if worsening of symptoms Patient data External records reviewed:: None Clinical information provided by:: patient Social determinants that could affect healthcare access:: none Patient has the following chronic illnesses:: Methamphetamine abuse How is presenting disease/condition affected by chronic disease/condition?: exacerbated by Evaluation data The following diagnostics were reviewed and interpreted by me:: lab results, radiology exam(s) and EKG tracing(s) Lab and/or radiology exams considered but not ordered:: None Interpretation Summary: See results in MDM Medications / Prescriptions Medications or Prescriptions considered but not ordered:: none Medication administrations:: Medication Administration History Discontinued Medications Lorazepam (Lorazepam 0.5 Mg Tablet) 1 mg PO X1 ONE Stop: 12/10/24 11:58 Last Admin: 12/10/24 12:36 Dose: 1 mg Documented By: GRICELDA Prednisone (Prednisone 20 Mg Tablet) 60 mg PO X1 ONE Stop: 12/10/24 11:58 Last Admin: 12/10/24 12:36 Dose: 60 mg Documented By: VG Lorazepam, prednisone Consultations Consultation(s) initiated? (list below): No Diagnosis Shortness of Breath Differential Diagnosis: congestive heart failure, community acquired pneumonia and asthma with exacerbation Most likely diagnosis given after review of the tests above:: Pneumonia Admission Indicated Admission indicated?: not indicated Admission Request Was there a request for admission?: No Disposition Plan Disposition Plan: Discharge Discharge Attestation Discharge Attestation: The patient waas given an opportunity to ask questions and understood the discharge instructions. Discharge instructions specifically effects, indications for sooner follow up or return to the emergency department, and the expected course of current diagnosis. Patient condition: Stable Discharge Plan Plan Patient Disposition: HOME (Self Care) Disposition Comment: stable Prescriptions/Referrals Prescriptions/Med Rec: New levofloxacin 750 mg tablet 750 mg PO Q24H 7 Days Qty: 7 0RF No Action buspirone 15 mg Tablet 15 mg PO TID Qty: 0 Combivent Respimat 20-100 mcg/actuation Mist 2 puff Inhalation QID PRN (Reason: sob) Qty: 0 potassium chloride 8 mEq Capsule, Extended Release 8 meq PO TID sertraline 100 mg Tablet 100 mg PO QDAY ferrous sulfate [Iron (ferrous sulfate)] 325 mg (65 mg iron) Tablet 325 mg PO QDAY loratadine [Loradamed] 10 mg Tablet 10 mg PO QDAY trazodone 50 mg Tablet 50 mg PO HS lidocaine 5 % Adhesive Patch,Medicated 1 patch topical QDAY Latuda 40 mg Tablet 40 mg PO HS benzonatate 100 mg capsule 100 mg PO TID Qty: 14 0RF azithromycin 500 mg tablet See Rx Instructions .ROUTE .COMPLEX Qty: 6 0RF Rx Instructions: take 500 mg today (day 1), then 250 mg for 4 days (days 2-5) doxycycline monohydrate 100 mg capsule 100 mg PO BID Qty: 14 0RF Referrals: Bernard Velez MD [Primary Care Provider] - In 1 week Problem List Clinical Impression: Community acquired pneumonia Patient/Caregiver Discharge Instructions Discharge Activity: activity as tolerated Education Materials: ED Pneumonia (Adult) Additional Instructions: Thank you for the opportunity for serving you today. You are stable for discharged . You are advised to: Follow-up with your PCP in 1 to 2 days Return to ED for worsening of symptoms Increase oral fluids Take medication as prescribed Print Language: Albanian Stand Alone Forms: Liz Award Info., Patient Portal Info Letter PA/TRACK LAMINATING MACHINE TENDER Supervising Physician PA/TRACK LAMINATING MACHINE TENDER Supervising Physician:
[2024-12-10 12:27] LABS: Basophils # (Auto) 0.1 Thou/mm3 (0.0-0.2); Basophils % (Auto) 1 % (0-2.5); Eosinophils # (Auto) 0.1 Thou/mm3 (0.0-0.5); Eosinophils % (Auto) 1 % (0-10); Hematocrit 36.4 % (36.0-46.0); Hemoglobin 11.4 g/dL (12.0-16.0); Immature Granulocytes % (Auto) 0 % (0-0); Immature Granulocytes Auto 0.03 Thou/mm3 (0.00-0.00); Lymphocytes # (Auto) 1.7 Thou/mm3 (1.0-4.8); Lymphocytes % (Auto) 20 % (10-50); Mean Corpuscular HGB Conc 31.3 g/dl (31.0-37.0); Mean Corpuscular Hemoglobin 25.9 pg (25.0-35.0); Mean Corpuscular Volume 83 fL (80-100); Monocytes # (Auto) 0.9 Thou/mm3 (0.0-0.8); Monocytes % (Auto) 11 % (0-12); Neutrophils # (Auto) 5.4 Thou/mm3 (1.8-7.7); Neutrophils % (Auto) 66 % (37-80); Nucleated Red Blood Cell % 0 /100 WBC (0); Platelet Count 358 Thou/mm3 (140-440); RDW Standard Deviation 57.5 fL (36.4-46.3); White Blood Count 8.1 Thou/mm3 (3.6-11.0)
[2024-12-10] MEDS: LORazepam 0.5 MG TABLET 1 MG PO (12:36)
[2024-12-10] MEDS: predniSONE 20 MG TABLET 60 MG PO (12:36)
[2024-12-10 12:46] LABS: Partial Thromboplastin Time 29.2 Seconds (22.0-36.0)
[2024-12-10 12:49] LABS: Alanine Aminotransferase 14 U/L (10-49); Albumin, Serum 3.6 gm/dL (3.5-5.0); Albumin/Globulin Ratio 1.1 (1.2-2.2); Alkaline Phosphatase 167 U/L (46-116); Anion Gap 12 (7-16); Aspartate Amino Transferase 20 U/L (0-34); BUN/Creatinine Ratio 16 Ratio (12-20); Bilirubin,Total 0.3 mg/dL (0.3-1.2); Blood Urea Nitrogen 8 mg/dL (9-23); Calcium 8.8 mg/dL (8.3-10.6); Calcium (Corrected) 9.1 mg/dL (8.5-10.1); Carbon Dioxide 24.6 mMol/L (20.0-31.0); Chloride 100 mMol/L (98-107); Creatinine (Component) 0.5 mg/dL (0.6-1.3); Estimated Creatinine Clearance 121.3 mL/min (>60); Globulin 3.4 gm/dL (2.3-3.5); Glucose 78 mg/dL (74-106); Osmolality,Calculated 271 (275-295); Sodium 137 mMol/L (136-145); Troponin I < 0.002 ng/mL (0.0-0.045); eGFR > 60 See Note
[2024-12-10 12:50] LABS: B-Type Natriuretic Peptide 65 pg/mL (0-100)
== END 2024-12-10 14:42 | disposition home or self-care (01) ==
PROVIDERS: Nurse Practitioner Family; Emergency Provider Emergency Medicine; PCP Family Medicine
DX: J44.0 Chronic obstructive pulmonary disease with (acute) lower respiratory infection (principal); J18.9 Pneumonia, unspecified organism; R00.0 Tachycardia, unspecified; F17.210 Nicotine dependence, cigarettes, uncomplicated
CPT/HCPCS: 36415; 71045; 80053; 83880; 84484; 85025; 85730; 93005; 99283; J7512; A9270

== ENCOUNTER 2024-12-25 16:18 | Emergency (ER) | payer MEDICAID, SELFPAY ==
--- NOTE | 2024-12-25 16:51 | EDNOTE_ITS ---
ED General RME/HPI General Chief complaint: Altered Mental Status Stated complaint: aloc, recent meth use Time Seen by Provider: 12/25/24 16:26 Arrival date/time: 12/25/24 16:18 RME / HPI RME / HPI narrative: DR. SOUZA MAIN ED EVALUATION: 54 year old female with past medical history significant for methamphetamine abuse, chronic smoking, anxiety, COPD presents to the Emergency Department BIBA after family at home called an ambulance for erratic behaviour after using methamphetamine. EMS states patient was found lying on the floor and had been pulling stool out of her rectum at home. Her hands, clothing and blanket were covered with stool. She has been screaming and combative. She complains of pain but is not specific about it. Rectal temperature here was 97.3 F. Related Data Home Medications ?Medication ?Instructions ?Recorded ?Confirmed buspirone 15 mg tablet 15 mg PO TID #0 tabs 7 09/06/19 ipratropium 20 mcg-albuterol 100 2 puff inhalation QID PRN sob #0 07/04/17 09/06/19 mcg/actuation mist for inhalation inhalations (Combivent Respimat) ferrous sulfate 325 mg (65 mg 325 mg PO QDAY 04/08/18 09/06/19 iron) tablet (Iron (ferrous sulfate)) loratadine 10 mg tablet (Loradamed) 10 mg PO QDAY 03/2909/06/19 potassium chloride 8 mEq 8 meq PO TID 04/08/18 capsule,extended release sertraline 100 mg tablet 100 mg PO QDAY 04/08/1806/17 lidocaine 5 % topical patch 1 patch topical QDAY 09/0609/06/19 lurasidone 40 mg tablet (Latuda) 40 mg PO HS 09/06/19 09/06/19 trazodone 50 mg tablet 50 mg PO HS 09/06/19 9 Previous Rx's ?Medication ?Instructions ?Recorded azithromycin 500 mg tablet See Rx Instructions PO .COM PLEX #6 11/22/24 tabs benzonatate 100 mg capsule 100 mg PO TID #14 caps 10/31 01/21 doxycycline monohydrate 100 mg 100 mg PO BID Community -acquired 11/30/24 capsule pneumonia #14 caps Allergies Allergy/AdvReac Type Severity Reaction Status Date / Time aspirin AdvReac Severe BLEEDING Verified 11/22/24 09:46 ULCERS ibuprofen AdvReac Severe BLEEDING Verified 11/22/24 09:46 ULCERS Review of Systems Review of Systems Systems Reviewed: All systems reviewed, normal except as documented Past Medical History Past Medical History RESPIRATORY: Positive Chronic Obstructive Pulmonary Disease (COPD) PSYCHO/SOCIAL: Positive Recreational Drug Use, Depression and Anxiety OTHER HISTORY: Positive Blood Transfusions Surgical History SURGICAL: Positive Gastric Bypass Surgery and Section Social History SMOKING STATUS: Light (< 1 pack/day) SUBSTANCE USE: former substance user and methamphetamine ALCOHOL: Never ED Exam Narrative Physical exam: GENERAL APPEARANCE: alert and oriented x 4, well-developed, well-nourished, covered in stools, disheveled, unkempt, poor hygiene VITALS: All vitals were reviewed and the pulse ox is 97% on room air, which is normal according to my interpretation. HEENT: Normocephalic, atraumatic; pupils equal, round, reactive to light; EOMI; mucous membranes pink, moist; oropharynx clear NECK: Supple LUNGS: CTABL; no wheezes, no rales, no rhonchi HEART: tachycardic, regular rhythm; normal S1, S2; no murmurs ABDOMEN: non distended; normal BS; soft, no tenderness, no guarding, no rebound; no masses, no organomegaly, no hernia BACK: no CVA tenderness EXTREMITIES: atraumatic; no edema NEUROLOGIC: awake; alert and oriented x4; cranial nerves II-XII grossly intact; no focal sensory or motor deficits PSYCHIATRIC: appropriate mood and affect SKIN: warm, dry, normal color; no rashes Course Quality Measures none Orders Category Date Time Status Remote Broadcast Technician NOW Care 12/25/24 16:53 Completed EKG (ED ONLY) *Do not use* NOW Care 12/25/24 16:53 Completed EKG (ED Only) Stat Exams 12/25/24 16:53 Draft Alcohol, Blood Medical Stat Lab 12/25/24 16:48 Completed B-Type Natriuretic Peptide Stat Lab 12/25/24 16:48 Completed CBC Stat Lab 12/25/24 16:48 Completed Comprehensive Metabolic Panel Stat Lab 12/25/24 16:48 Completed Drug Screen,Urine Stat Lab 12/25/24 16:48 Completed Lipase Stat Lab 12/25/24 16:48 Completed Magnesium Stat Lab 12/25/24 16:48 Completed Partial Thromboplastin Time Stat Lab 12/25/24 17:56 Completed Prothrombin Time with INR Stat Lab 12/25/24 17:56 Completed Troponin I Stat Lab 12/25/24 16:48 Completed LORazepam [Ativan Inj] Med 12/25/24 16:52 Discontinued 2 mg IVP X1 ONE Vital Signs Vital signs: Vital Signs Temperature 97.4 F 12/25/24 16:52 Pulse Rate 97 12/25/24 16:52 Respiratory Rate 22 H 12/25/24 16:52 Blood Pressure 142/94 H 12/25/24 16:52 Pulse Oximetry (%) 97 12/25/24 16:52 Oxygen Delivery Method Nasal Cannula 12/25/24 16:52 MDM Patient data External records reviewed:: [facility] previous records (Reviewed last ED visit dated 12/10/24, discharged with the following: Community acquired pneumonia) and EMS form Clinical information provided by:: patient and EMS Social determinants that could affect healthcare access:: none Patient has the following chronic illnesses:: methamphetamine abuse, chronic smoking, anxiety, COPD How is presenting disease/condition affected by chronic disease/condition?: e xacerbated by Evaluation data The following diagnostics were reviewed and interpreted by me:: lab results and EKG tracing(s) Lab and/or radiology exams considered but not ordered:: none Interpretation Summary: Pending tests. Medications Medications considered but not ordered:: none Medication administrations:: Medication Administration History Discontinued Medications Lorazepam (Lorazepam 2 Mg/Ml Vial) 2 mg IVP X1 ONE Stop: 12/25/24 16:53 Last Admin: 12/25/24 17:11 Dose: 2 mg Documented By: FELIZ see above Consultations Consultation(s) initiated? (list below): No Diagnosis Differential Diagnosis ED Complaint MDM: methamphetamine abuse, sepsis, UTI Most likely diagnosis given after review of the tests above:: No official diagnoses at this time, still pending diagnostic tests. [facility] to the [facility] shift lead provider. Admission Indicated Admission indicated?: not indicated Explain why admission is indicated or not indicated:: No final disposition plan at this time, still pending diagnostic tests. Patient signout to the [facility] shift lead provider. Admission Request Was there a request for admission?: No Disposition Plan Disposition Plan: other (specify) (Patient signout to the [facility] shift lead provider. ) Medical Decision Making MDM Narrative MDM Narrative: I, Linette Barba, am scribing for and in the presence of Dr. Souza. Differential Diagnosis Differential Diagnosis: methamphetamine abuse, sepsis, UTI Lab Data 12/25/24 16:48 12/25/24 16:48 Labs: Lab Results 12/25/24 12/25/24 Range/Units 16:48 17:56 WBC 8.1 (3.6-11.0) Thou/mm3 RBC 4.29 (4.00-5.20) Miln/mm3 Hgb 11.4 L (12.0-16.0) g/dL Hct 35.3 L (36.0-46.0) % MCV 82 (80-100) fL MCH 26.6 (25.0-35.0) pg MCHC 32.3 (31.0-37.0) g/dl RDW Std Deviation 62.4 H (36.4-46.3) fL Plt Count 233 D (140-440) Thou/mm3 Neut % (Auto) 79 (37-80) % Lymph % (Auto) 13 (10-50) % [place] % (Auto) 7 (0-12) % Eos % (Auto) 0 (0-10) % Baso % (Auto) 0 (0-2.5) % Neut # (Auto) 6.4 (1.8-7.7) Thou/mm3 Lymph # (Auto) 1.0 (1.0-4.8) Thou/mm3 [place] # (Auto) 0.6 (0.0-0.8) Thou/mm3 Eos # (Auto) 0.0 (0.0-0.5) Thou/mm3 Baso # (Auto) 0.0 (0.0-0.2) Thou/mm3 Immature Gran # (Auto) 0.04 H (0.00-0.00) Thou/mm3 Absolute Nucleated RBC 0.00 (0.00-0.00) Thou/mm3 Immature Gran % 1 H (0-0) % Nucleated RBC % 0 (0) /100 WBC PT 10.2 (9.0-12.2) Seconds INR 0.9 (0.9-1.3) APTT 25.9 (22.0-36.0) Seconds Sodium 142 (136-145) mMol/L Potassium 4.5 (3.4-5.1) mMol/L Chloride 106 (98-107) mMol/L Carbon Dioxide 25.4 (20.0-31.0) mMol/L Anion Gap 11 (7-16) BUN 8 L (9-23) mg/dL Creatinine 0.5 L (0.6-1.3) mg/dL Estim Creat Clear Calc 123.7 (>60) mL/min eGFR > 60 (60 - ) See Note BUN/Creatinine Ratio 16 (12-20) Ratio Glucose 85 (74-106) mg/dL Calculated Osmolality 280 (275-295) Calcium 8.4 (8.3-10.6) mg/dL Corrected Calcium 8.6 (8.5-10.1) mg/dL Magnesium 2.2 (1.6-2.6) mg/dL Total Bilirubin 0.2 L (0.3-1.2) mg/dL AST 96 H (0-34) U/L ALT 29 (10-49) U/L Alkaline Phosphatase 167 H (46-116) U/L Troponin I < 0.002 (0.0-0.045) ng/mL B-Natriuretic Peptide < 20 (0-100) pg/mL Total Protein 6.9 (5.7-8.2) gm/dL Albumin 3.8 (3.5-5.0) gm/dL Globulin 3.1 (2.3-3.5) gm/dL Albumin/Globulin Ratio 1.2 (1.2-2.2) Lipase 59 H (12-53) U/L Urine Opiates Screen Negative (Negative) Urine Fentanyl Screen Negative (Negative) Ur Barbiturates Screen Negative (Negative) U Amphetamin/Meth Scrn Positive A (Negative) U Benzodiazepines Scrn Negative (Negative) U Cocaine Metab Screen Negative (Negative) U Marijuana (THC) Screen Negative (Negative) Ethyl Alcohol 322.4 H (0-10.0) mg/dL Discharge Plan Plan Patient Disposition: HOME (Self Care) Patient condition on transfer: Stable Prescriptions/Referrals Prescriptions/Med Rec: No Action buspirone 15 mg Tablet 15 mg PO TID Qty: 0 Combivent Respimat 20-100 mcg/actuation Mist 2 puff Inhalation QID PRN (Reason: sob) Qty: 0 potassium chloride 8 mEq Capsule, Extended Release 8 meq PO TID sertraline 100 mg Tablet 100 mg PO QDAY ferrous sulfate [Iron (ferrous sulfate)] 325 mg (65 mg iron) Tablet 325 mg PO QDAY loratadine [Loradamed] 10 mg Tablet 10 mg PO QDAY trazodone 50 mg Tablet 50 mg PO HS lidocaine 5 % Adhesive Patch,Medicated 1 patch topical QDAY Latuda 40 mg Tablet 40 mg PO HS benzonatate 100 mg capsule 100 mg PO TID Qty: 14 0RF azithromycin 500 mg tablet See Rx Instructions .ROUTE .COMPLEX Qty: 6 0RF Rx Instructions: take 500 mg today (day 1), then 250 mg for 4 days (days 2-5) doxycycline monohydrate 100 mg capsule 100 mg PO BID Qty: 14 0RF Referrals: No Primary/Family,Physician [Primary Care Provider] - In 1 week Problem List Clinical Impression: Alcohol abuse, Methamphetamine abuse Patient/Caregiver Discharge Instructions Education Materials: ED Drug Abuse Additional Instructions: Return to the emergency department for any worsening symptoms, or any other concerns. Print Language: Bhutanese Stand Alone Forms: Liz Award Info., Patient Portal Info Letter
[2024-12-25 16:52] VITALS: BP 142/94; PULSE 97; RESP 22; TEMP 36.3; O2SAT 97; BMI 32.1
--- NOTE | 2024-12-25 16:53 | EKG_ITS ---
[facility] Test Date: 2024-12-25 Pat Name: GEN AQUINO Department: Room: - Gender: Female Social Services Specialist: : 1970 Requested By: Crissy Charles Order Number: [id number] Reading MD: Crissy Charles Measurements Intervals Holman Rate: 105 P: 3 MS: 150 QRS: 40 QRSD: 97 T: 64 QT: 386 QTc: 512 Interpretive Statements SINUS TACHYCARDIA ABNORMAL RHYTHM ECG Compared to ECG 12/10/2024 11:55:33 Left ventricular hypertrophy no longer present ST (T wave) deviation no longer present /store/S0/[id number]/ecg/[id number].pdf
[2024-12-25] MEDS: LORazepam 2 MG/ML VIAL IVP (17:11)
[2024-12-25 17:19] LABS: Basophils % (Auto) 0 % (0-2.5); Eosinophils % (Auto) 0 % (0-10); Hematocrit 35.3 % (36.0-46.0); Hemoglobin 11.4 g/dL (12.0-16.0); Immature Granulocytes % (Auto) 1 % (0-0); Immature Granulocytes Auto 0.04 Thou/mm3 (0.00-0.00); Lymphocytes % (Auto) 13 % (10-50); Mean Corpuscular HGB Conc 32.3 g/dl (31.0-37.0); Mean Corpuscular Hemoglobin 26.6 pg (25.0-35.0); Mean Corpuscular Volume 82 fL (80-100); Monocytes # (Auto) 0.6 Thou/mm3 (0.0-0.8); Monocytes % (Auto) 7 % (0-12); Neutrophils # (Auto) 6.4 Thou/mm3 (1.8-7.7); Neutrophils % (Auto) 79 % (37-80); Nucleated Red Blood Cell % 0 /100 WBC (0); Platelet Count 233 Thou/mm3 (140-440); RDW Standard Deviation 62.4 fL (36.4-46.3); Red Blood Count 4.29 Miln/mm3 (4.00-5.20); White Blood Count 8.1 Thou/mm3 (3.6-11.0)
[2024-12-25 17:41] LABS: Alanine Aminotransferase 29 U/L (10-49); Albumin, Serum 3.8 gm/dL (3.5-5.0); Albumin/Globulin Ratio 1.2 (1.2-2.2); Alcohol, Blood Medical 322.4 mg/dL (0-10.0); Alkaline Phosphatase 167 U/L (46-116); Anion Gap 11 (7-16); Aspartate Amino Transferase 96 U/L (0-34); BUN/Creatinine Ratio 16 Ratio (12-20); Bilirubin,Total 0.2 mg/dL (0.3-1.2); Blood Urea Nitrogen 8 mg/dL (9-23); Calcium 8.4 mg/dL (8.3-10.6); Calcium (Corrected) 8.6 mg/dL (8.5-10.1); Carbon Dioxide 25.4 mMol/L (20.0-31.0); Chloride 106 mMol/L (98-107); Creatinine (Component) 0.5 mg/dL (0.6-1.3); Estimated Creatinine Clearance 123.7 mL/min (>60); Globulin 3.1 gm/dL (2.3-3.5); Glucose 85 mg/dL (74-106); Lipase 59 U/L (12-53); Magnesium 2.2 mg/dL (1.6-2.6); Osmolality,Calculated 280 (275-295); Potassium 4.5 mMol/L (3.4-5.1); Sodium 142 mMol/L (136-145); Total Protein 6.9 gm/dL (5.7-8.2); Troponin I < 0.002 ng/mL (0.0-0.045); eGFR > 60 See Note
[2024-12-25 17:47] LABS: B-Type Natriuretic Peptide < 20 pg/mL (0-100)
[2024-12-25 18:13] LABS: Amphetamine/Methamp Scrn,U Positive (Negative); Barbiturate Screen,Urine Negative (Negative); Benzodiazepines Screen,Urine Negative (Negative); Benzoylecgonine Screen, Ur Negative (Negative); Fentanyl Screen,Urine Negative (Negative); Opiate Screen,Urine Negative (Negative); THC Screen,Urine Negative (Negative)
[2024-12-25 18:26] VITALS: BP 121/98; PULSE 93; PULSE 94; RESP 21; RESP 31; TEMP 36.8; O2SAT 98
--- NOTE | 2024-12-25 18:51 | PD.EDADDENDU ---
Emergency Room Addendum Addendum Narrative: [address] Truong medical, surgical, social and family history reviewed. Vitals and home medications reviewed. Results and treatment plan discussed. I will assume the care of the patient at this time and will follow the patient, pending re-evaluation of the labs and metabolize to freedom.
--- NOTE | 2024-12-25 18:52 | PD.EDADDENDU ---
Emergency Room Addendum Addendum Narrative: [address] Souza. Past medical, surgical, social and family history reviewed. Vitals and home medications reviewed. Results and treatment plan discussed. I will assume the care of the patient at this time and will follow the patient, pending diagnostic tests and final disposition. Blood alcohol is 322.4. Please refer to the emergency department record for history and examination from initial visit. The following addendum documentation note is intended to reflect any pending information, findings, or radiology results not included in the patient?s initial chart. 1999 Physical exam performed by me, patient is in no acute distress. 2322 Patient is ambulating, back to base line. Stable for discharge. MD Attestation MD Attestation Scribe Attestation: I, Tatiana Alvarado, am scribing for and in the presence of Dr. Marie. Provider Notation: Although this document has been carefully reviewed, there may still be some phonetic and other typographical errors. These errors are purely grammatical due to imperfections in the software program and should not be construed in any way to compromise the substance of the patient's medical care during this visit.
[2024-12-25 19:43] LABS: INR 0.9 (0.9-1.3); Partial Thromboplastin Time 25.9 Seconds (22.0-36.0); Prothrombin Time 10.2 Seconds (9.0-12.2)
[2024-12-25 21:06] VITALS: BP 140/90; PULSE 98; RESP 17; O2SAT 97
[2024-12-25 21:08] VITALS: BP 140/90; PULSE 89; PULSE 96; RESP 18; TEMP 37; O2SAT 97
--- NOTE | 2024-12-25 21:13 | PC.NURSE ---
pt is asleep. VS WNL. pt smels of alcoholik beverages. arouses easily.
[2024-12-25 22:00] VITALS: BP 132/79; PULSE 99; RESP 24; O2SAT 95
--- NOTE | 2024-12-25 22:06 | PC.NURSE ---
still sleeping. VS stable.
[2024-12-25 23:00] VITALS: BP 123/71; PULSE 109; RESP 16; O2SAT 98
--- NOTE | 2024-12-25 23:15 | PC.NURSE ---
Pt woke up alert and hungry.tp given sandwitch and some juice. GCS 15 . pt able to ambulate. pts significant other her to take her home.
== END 2024-12-25 23:25 | disposition home or self-care (01) ==
PROVIDERS: Emergency Medicine; Emergency Provider Emergency Medicine
DX: F10.10 Alcohol abuse, uncomplicated (principal); F15.10 Other stimulant abuse, uncomplicated; R00.0 Tachycardia, unspecified; Y90.8 Blood alcohol level of 240 mg/100 ml or more
CPT/HCPCS: 36415; 80053; 80307; 80320; 83690; 83735; 83880; 84484; 85025; 85610; 85730; 93005; 96374; 99284; J2060; G0480

== ENCOUNTER 2025-01-18 14:48 | Inpatient (IN) | payer MEDICAID, SELFPAY ==
[2025-01-18 15:00] VITALS: BP 109/70; PULSE 132; RESP 16; TEMP 36.2; O2SAT 97
[2025-01-18 15:01] VITALS: BMI 30.5
--- NOTE | 2025-01-18 16:05 | PD.EDRME ---
Rapid Medical Screening Exam RME Arrival date/time: 01/18/25 14:48 Chief Complaint: General Adult/Misc Complain Time Seen by Provider: 01/18/25 15:24 Vital signs: Vital Signs Temperature 97.2 F 01/18/25 15:00 Pulse Rate 132 H 01/18/25 15:00 Respiratory Rate 16 01/18/25 15:00 Blood Pressure 109/70 01/18/25 15:00 Pulse Oximetry (%) 97 01/18/25 15:00 Oxygen Delivery Method Room Air 01/18/25 15:00 Vital signs reviewed by provider: Yes RME Narrative: 54-year-old female presents to the ED with with complaint of severe alcohol withdrawal.
[2025-01-18] MEDS: ONDANSETRON ODT 4 MG TABRAP PO (16:15)
[2025-01-18] MEDS: LORazepam 2 MG/ML VIAL IM (16:16)
[2025-01-18 17:15] LABS: Basophils % (Auto) 0 % (0-2.5); Eosinophils % (Auto) 0 % (0-10); Hemoglobin 12.1 g/dL (12.0-16.0); Immature Granulocytes % (Auto) 0 % (0-0); Immature Granulocytes Auto 0.02 Thou/mm3 (0.00-0.00); Lymphocytes # (Auto) 0.6 Thou/mm3 (1.0-4.8); Lymphocytes % (Auto) 7 % (10-50); Mean Corpuscular HGB Conc 33.6 g/dl (31.0-37.0); Mean Corpuscular Hemoglobin 27.9 pg (25.0-35.0); Mean Corpuscular Volume 83 fL (80-100); Monocytes # (Auto) 0.9 Thou/mm3 (0.0-0.8); Monocytes % (Auto) 11 % (0-12); Neutrophils # (Auto) 6.6 Thou/mm3 (1.8-7.7); Neutrophils % (Auto) 81 % (37-80); Nucleated Red Blood Cell % 0 /100 WBC (0); Platelet Count 252 Thou/mm3 (140-440); RDW Standard Deviation 61.2 fL (36.4-46.3); Red Blood Count 4.33 Miln/mm3 (4.00-5.20); White Blood Count 8.1 Thou/mm3 (3.6-11.0)
[2025-01-18 17:31] LABS: Ammonia 21 uMol/L (11-32)
[2025-01-18 18:53] LABS: Chloride 96 mMol/L (98-107); Potassium 3.9 mMol/L (3.4-5.1); Sodium 134 mMol/L (136-145)
[2025-01-18 18:54] LABS: Alanine Aminotransferase 69 U/L (10-49); Albumin, Serum 3.4 gm/dL (3.5-5.0); Albumin/Globulin Ratio 1.2 (1.2-2.2); Alcohol, Blood Medical 10.9 mg/dL (0-10.0); Alkaline Phosphatase 229 U/L (46-116); Anion Gap 15 (7-16); Aspartate Amino Transferase 134 U/L (0-34); BUN/Creatinine Ratio 24 Ratio (12-20); Bilirubin,Total 1.2 mg/dL (0.3-1.2); Blood Urea Nitrogen 12 mg/dL (9-23); Calcium (Corrected) 8.5 mg/dL (8.5-10.1); Creatinine (Component) 0.5 mg/dL (0.6-1.3); Estimated Creatinine Clearance 125.4 mL/min (>60); Globulin 2.9 gm/dL (2.3-3.5); Glucose 92 mg/dL (74-106); Osmolality,Calculated 267 (275-295); Total Protein 6.3 gm/dL (5.7-8.2); eGFR > 60 See Note
[2025-01-18 20:04] LABS: Amphetamine/Methamp Scrn,U Positive (Negative); Barbiturate Screen,Urine Negative (Negative); Benzodiazepines Screen,Urine Negative (Negative); Benzoylecgonine Screen, Ur Negative (Negative); Fentanyl Screen,Urine Negative (Negative); Opiate Screen,Urine Negative (Negative); THC Screen,Urine Negative (Negative)
[2025-01-18 20:13] VITALS: BP 130/87; PULSE 127; RESP 18; TEMP 37.3; O2SAT 100
[2025-01-18] MEDS: THIAMINE INJ 100 MG/ML VIAL 2 ML IVP (20:17)
[2025-01-18] MEDS: SODIUM CHLORIDE 0.9% 1000 ML 1,000 ML 999 ML IV ×2 (20:17→20:52)
[2025-01-18] MEDS: FOLIC ACID INJ 1 MG/0.2 ML IVP (20:17)
[2025-01-18] MEDS: Magnesium Sulfate 2 GM Ivpb 2 GM/50 ML BAG IV (20:20)
--- NOTE | 2025-01-18 20:33 | PD.EDADULT ---
ED General RME/HPI General Chief complaint: General Adult/Misc Complain Stated complaint: WEAKNESS Time Seen by Provider: 01/18/25 15:24 Arrival date/time: 01/18/25 14:48 RME / HPI RME / HPI narrative: 54-year-old female presents to the ED with with complaint of severe alcohol withdrawal. DR. MARRERO MAIN ED EVALUATION: 54 y/o female with Hx of COPD, Anxiety, Depression, Alcohol abuse and Methamphetamine use presents to ED c/o alcohol withdrawal x 1 day. Denies vomiting, but endorses generalized weakness, no appetite, dry-heaving and black or red-colored diarrhea (as patient changed her answer). Patient usually has 10-13 shots of liquor per day, but states she last had 2 shots at 0400. She began methadone treatment 3-4 years ago. Patient went to methadone clinic today and was denied her dose due to having alcohol in her system, and states she hasn't had methadone in several days. No other concerns or complaints expressed at this time. Related Data Home Medications ?Medication ?Instructions ?Recorded ?Confirmed buspirone 15 mg tablet 15 mg PO TID #0 tabs 07/04/17 09/06/19 ipratropium 20 mcg-albuterol 100 2 puff inhalation QID PRN sob #0 07/04/17 09/06/19 mcg/actuation mist for inhalation inhalations (Combivent Respimat) ferrous sulfate 325 mg (65 mg 325 mg PO QDAY 04/08/18 09/06/19 iron) tablet (Iron (ferrous sulfate)) loratadine 10 mg tablet (Loradamed) 10 mg PO QDAY 04/08/18 09/06/19 potassium chloride 8 mEq 8 meq PO TID 04/08/18 09/06/19 capsule,extended release sertraline 100 mg tablet 100 mg PO QDAY 04/08/18 09/06/19 lidocaine 5 % topical patch 1 patch topical QDAY 09/06/19 09/06/19 lurasidone 40 mg tablet (Latuda) 40 mg PO HS 09/06/19 09/06/19 trazodone 50 mg tablet 50 mg PO HS 09/06/19 09/06/19 Previous Rx's ?Medication ?Instructions ?Recorded azithromycin 500 mg tablet See Rx Instructions PO .COMPLEX #6 11/22/24 tabs benzonatate 100 mg capsule 100 mg PO TID #14 caps 11/22/24 doxycycline monohydrate 100 mg 100 mg PO BID Community-acquired 11/30/24 capsule pneumonia #14 caps Allergies Allergy/AdvReac Type Severity Reaction Status Date / Time aspirin AdvReac Severe BLEEDING Verified 01/18/25 15:24 ULCERS ibuprofen AdvReac Severe BLEEDING Verified 01/18/25 15:24 ULCERS Review of Systems Review of Systems Systems Reviewed: All systems reviewed, normal except as documented Past Medical History Past Medical History RESPIRATORY: Positive Chronic Obstructive Pulmonary Disease (COPD) PSYCHO/SOCIAL: Positive Recreational Drug Use, Depression and Anxiety OTHER HISTORY: Positive Blood Transfusions Surgical History SURGICAL: Positive Gastric Bypass Surgery and Section ED Exam Narrative Physical exam: GENERAL APPEARANCE: alert and oriented x 4, not tremulous, well-developed, well-nourished, no acute distress VITALS: All vitals were reviewed and the pulse ox is 100% on room air, which is normal according to my interpretation. HEENT: Normocephalic, atraumatic; pupils equal, round, reactive to light; EOMI; mucous membranes pink, moist; oropharynx clear NECK: Supple LUNGS: CTABL; no wheezes, no rales, no rhonchi HEART: Regular tachycardia in the 130s; normal S1, S2; no murmurs ABDOMEN: non distended; normal BS; soft, no tenderness, no guarding, no rebound; no masses, no organomegaly, no hernia BACK: no CVA tenderness EXTREMITIES: atraumatic; no edema NEUROLOGIC: awake; alert and oriented x4; cranial nerves II-XII grossly intact; no focal sensory or motor deficits PSYCHIATRIC: appropriate mood and affect SKIN: warm, dry, normal color; no rashes Course Quality Measures none Orders Category Date Time Status Staple Cutter NOW Care 01/18/25 20:34 Completed Continuous Pulse Oximetry NOW Care 01/18/25 20:34 Completed EKG (ED ONLY) *Do not use* NOW Care 01/18/25 20:34 Completed IV [Insert IV] NOW Care 01/18/25 20:16 Completed Occult Blood,Stool (Nursing) NOW Care 01/18/25 20:47 Active EKG (ED Only) Stat Exams 01/18/25 20:34 Draft Acetaminophen Stat Lab 01/18/25 18:00 Completed Alcohol, Blood Medical Stat Lab 01/18/25 18:00 Completed Ammonia Stat Lab 01/18/25 16:55 Completed CBC Stat Lab 01/18/25 16:55 Completed CMP [Comprehensive Metabolic Panel] Stat Lab 01/18/25 18:00 Completed Drug Screen,Urine Stat Lab 01/18/25 18:54 Completed Salicylate Stat Lab 01/18/25 18:00 Completed Thyroid Stimulating Hormone Stat Lab 01/18/25 18:00 Completed Urinalysis Stat Lab 01/18/25 23:55 Completed Folic Acid Inj Med 01/18/25 16:03 Discontinued 1 mg IVP X1 ONE LORazepam [Ativan Inj] Med 01/18/25 16:06 Discontinued 2 mg IM X1 ONE LORazepam [Ativan Inj] Med 01/18/25 20:48 Discontinued 2 mg IVP X1 ONE LORazepam [Ativan] Med 01/18/25 16:03 Discontinued 2 mg SL X1 ONE Magnesium Sulfate 2 GM Ivpb [Magnesium Sulfate Ivpb] Med 01/18/25 16:03 Discontinued 2 gm in 50 ml IV X1 Ondansetron Odt [Zofran Odt] Med 01/18/25 16:06 Discontinued 4 mg PO X1 ONE Sodium Chloride 0.9% 1000 ml [Ns] 1,000 ml Med 01/18/25 16:03 Discontinued IV 999 mls/hr Sodium Chloride 0.9% 1000 ml [Ns] 1,000 ml Med 01/18/25 20:34 Discontinued IV 999 mls/hr Thiamine Inj [Vitamin B-1 Inj] Med 01/18/25 16:03 Discontinued 100 mg IVP X1 ONE chlordiazePOXIDE HCl [Librium] Med 01/18/25 20:48 Discontinued 25 mg PO X1 ONE Vital Signs Vital signs: Vital Signs Temperature 97.2 F 01/18/25 15:00 Pulse Rate 132 H 01/18/25 15:00 Respiratory Rate 16 01/18/25 15:00 Blood Pressure 109/70 01/18/25 15:00 Pulse Oximetry (%) 97 01/18/25 15:00 Oxygen Delivery Method Room Air 01/18/25 15:00 Discharge Plan Plan Patient Disposition: Admit Acute Care w/in Hospital Problem List Clinical Impression: Lower GI bleed, Alcohol intoxication MDM Patient Acuity High Acuity (complete MDM) Narrative: Scribe Attestation: Charo Greenberg, am scribing for and in the presence of Dr. Marrero. Provider Notation: Although this document has been carefully reviewed, there may still be some phonetic and other typographical errors. These errors are purely grammatical due to imperfections in the software program and should not be construed in any way to compromise the substance of the patient's medical care during this visit. Clinical Information Provided by: patient Medical Records reviewed [facility] (Prior ED records reviewed from 12/25/24. Patient was seen for Alcohol abuse.) Meds/Rx considered, not ordered None Labs/Rad/Tests considered, not ordered None Chronic Illness/Social Conditions which may negatively complicate care or outcome(s)-explain: Mental health and ETOH/drugs/substance abuse Explain: COPD, Anxiety, Depression, Alcohol abuse and Methamphetamine use EKG EKG Interpretation(s): 2153: Tachycardic sinus rhythm at 107 BPM, with normal axis, no ectopy, ST depressions from v2-v6, as well as lead II, lead III, and avF, no STEMI. Labs Labs: Interpreted by co Lab(s) Interpretation(s): WBC count is normal, HnH is normal at 12.1/36.0, LFTs are elevated, HCG is negative, UA is unremarkable, UDS is positive for methamphetamines, Blood Alcohol is 10.9, Acetaminophen is negative. Medication Administration(s) Medication Administration History Acetaminophen (Acetaminophen 325 Mg Tablet) 650 mg PO Q6H PRN PRN Reason: Fever >100.3 or pain 1-3 Stop: 02/17/25 22:35 Last Admin: 01/20/25 09:35 Dose: 650 mg Documented By: ANKIT Chlordiazepoxide HCl (Chlordiazepoxide Hcl 25 Mg Capsule) 50 mg PO Q8HR DELIA Stop: 01/23/25 22:54 Last Admin: 01/20/25 21:28 Dose: 50 mg Documented By: Admin: 01/20/25 14:00 Dose: Not Given Documented By: ANKIT Non-Admin Reason: Patient Asleep Admin: 01/20/25 05:11 Dose: 50 mg Documented By: Admin: 01/19/25 21:03 Dose: 50 mg Documented By: Admin: 01/19/25 14:10 Dose: 50 mg Documented By: Admin: 01/19/25 05:31 Dose: 50 mg Documented By: SARAH Comments: Pt NPO Dr. Belgica garzaed to give at this time Admin: 01/18/25 23:47 Dose: 50 mg Documented By: EDMUNDO Folic Acid (Folic Acid 1 Mg Tablet) 1 mg PO BID DELIA Stop: 01/23/25 22:44 Last Admin: 01/20/25 21:29 Dose: 1 mg Documented By: Admin: 01/20/25 09:36 Dose: 1 mg Documented By: Admin: 01/19/25 21:03 Dose: 1 mg Documented By: Admin: 01/19/25 08:10 Dose: 1 mg Documented By: Admin: 01/18/25 23:48 Dose: 1 mg Documented By: EDMUNDO Ceftriaxone Sodium/Dextrose (Rocephin/D5w 1gm Iv Premix) 1 gm in 50 mls @ 100 mls/hr IV QDAY DELIA Stop: 01/25/25 22:53 Last Admin: 01/20/25 09:35 Dose: 100 mls/hr Documented By: Infusion: 01/20/25 07:28 Dose: Infused Documented By: Admin: 01/19/25 08:09 Dose: 100 mls/hr Documented By: Infusion: 01/19/25 00:17 Dose: Infused Documented By: Admin: 01/18/25 23:47 Dose: 100 mls/hr Documented By: EDMUNDO Dextrose/Sodium Chloride (D5-Ns) 1,000 mls @ 100 mls/hr IV .Q10H DELIA Stop: 02/17/25 22:59 Last Admin: 01/20/25 21:29 Dose: 100 mls/hr Documented By: Infusion: 01/20/25 16:11 Dose: Infused Documented By: Admin: 01/20/25 06:11 Dose: 100 mls/hr Documented By: Infusion: 01/20/25 06:11 Dose: Infused Documented By: Admin: 01/19/25 21:08 Dose: 100 mls/hr Documented By: Infusion: 01/19/25 19:18 Dose: Infused Documented By: Admin: 01/19/25 09:18 Dose: 100 mls/hr Documented By: Infusion: 01/19/25 09:18 Dose: Infused Documented By: Admin: 01/18/25 23:48 Dose: 100 mls/hr Documented By: EDMUNDO Lorazepam (Lorazepam 0.5 Mg Tablet) 0.5 mg PO Q4HR PRN PRN Reason: CIWA Score 2-6 Stop: 01/23/25 22:37 Lorazepam (Lorazepam 0.5 Mg Tablet) 1 mg PO Q4HR PRN PRN Reason: CIWA SCORE 7-11 Stop: 01/23/25 22:37 Last Admin: 01/20/25 09:36 Dose: 1 mg Documented By: Admin: 01/18/25 23:59 Dose: 1 mg Documented By: EDMUNDO Lorazepam (Lorazepam 0.5 Mg Tablet) 2 mg PO Q4HR PRN PRN Reason: CIWA SCORE 12-15 Stop: 01/23/25 22:37 Last Admin: 01/20/25 02:07 Dose: 2 mg Documented By: Admin: 01/19/25 21:03 Dose: 2 mg Documented By: Admin: 01/19/25 17:06 Dose: 2 mg Documented By: Admin: 01/19/25 12:23 Dose: 2 mg Documented By: Admin: 01/19/25 07:58 Dose: 2 mg Documented By: JESSIKA Lorazepam (Lorazepam 2 Mg/Ml Vial) 1 mg IVP Q8HR PRN PRN Reason: Breakthrough agitation Stop: 01/24/25 00:36 Last Admin: 01/20/25 05:27 Dose: 1 mg Documented By: SARAH Methadone HCl (Methadone Solution 1 Mg/1 Ml) 60 mg PO QDAY [facility] Stop: 01/25/25 10:29 Last Admin: 01/20/25 12:19 Dose: 60 mg Documented By: ANKIT Ondansetron HCl (Ondansetron Inj 2 Mg/Ml Inj 2 Ml) 4 mg IV Q6H PRN; Protocol PRN Reason: NAUSEA OR VOMITING Stop: 02/17/25 22:35 Last Admin: 01/20/25 09:37 Dose: 4 mg Documented By: ANKIT Pantoprazole Sodium (Pantoprazole Inj 40 Mg Vial) 40 mg IVP BID [facility] Stop: 02/18/25 08:59 Last Admin: 01/20/25 21:28 Dose: 40 mg Documented By: Admin: 01/20/25 09:36 Dose: 40 mg Documented By: Admin: 01/19/25 21:08 Dose: 40 mg Documented By: Admin: 01/19/25 08:09 Dose: 40 mg Documented By: JESSIKA Sennosides (Senna Tablet) 1 tab PO QDAY PRN; Protocol PRN Reason: constipation Stop: 02/17/25 22:35 Thiamine HCl (Thiamine 100 Mg Tablet) 100 mg PO BID DELIA Stop: 01/23/25 22:44 Last Admin: 01/20/25 21:29 Dose: 100 mg Documented By: Admin: 01/20/25 09:35 Dose: 100 mg Documented By: Admin: 01/19/25 21:03 Dose: 100 mg Documented By: Admin: 01/19/25 08:10 Dose: 100 mg Documented By: Admin: 01/18/25 23:46 Dose: 100 mg Documented By: EDMUNDO Discontinued Medications Chlordiazepoxide HCl (Chlordiazepoxide Hcl 25 Mg Capsule) 25 mg PO X1 ONE Stop: 01/18/25 20:49 Last Admin: 01/18/25 21:03 Dose: 25 mg Documented By: EDMUNDO Chlordiazepoxide HCl (Chlordiazepoxide Hcl 25 Mg Capsule) 25 mg PO Q8HR DELIA Stop: 01/24/25 05:59 Chlordiazepoxide HCl (Chlordiazepoxide Hcl 25 Mg Capsule) 50 mg PO Q8HR DELIA Stop: 01/24/25 05:59 Diltiazem HCl (Diltiazem Inj 5 Mg/Ml Vial 5 Ml) 15 mg IV X1 ONE Stop: 01/20/25 05:31 Last Admin: 01/20/25 05:33 Dose: 15 mg Documented By: SARAH Comments: Dr. radha moore Critical med during [employer]TRY Diltiazem HCl (Diltiazem Inj 5 Mg/Ml Vial 5 Ml) Confirm Administered Dose 25 mg IV .STK-MED ONE Stop: 01/20/25 05:28 Last Admin: 01/20/25 05:46 Dose: Not Given Documented By: SARAH Non-Admin Reason: Duplicate Medication on eMAR Diphenhydramine HCl (Diphenhydramine Inj 50 Mg/Ml Vial) Confirm Administered Dose 50 mg .ROUTE .STK-MED ONE Stop: 01/20/25 18:59 Diphenhydramine HCl (Diphenhydramine Inj 50 Mg/Ml Vial) 25 mg IV PRNMRX1 PRN PRN Reason: MODERATE SEDATION Stop: 01/20/25 21:04 Enoxaparin Sodium (Enoxaparin Sod Inj 40 Mg/0.4 Ml Syringe) 40 mg SC QDAY DELIA Stop: 02/02/25 08:59 Fentanyl Citrate (Fentanyl Cit Inj 50 Mcg/Ml Amp 2ml) Confirm Administered Dose 100 mcg .ROUTE .STK-MED ONE Stop: 01/20/25 18:59 Fentanyl Citrate (Fentanyl Cit Inj 50 Mcg/Ml Amp 2ml) 50 mcg IV Q2M PRN PRN Reason: MODERATE SEDATION Stop: 01/20/25 21:04 Folic Acid (Folic Acid Inj 1 Mg/0.2 Ml) 1 mg IVP X1 ONE Stop: 01/18/25 16:04 Last Admin: 01/18/25 20:17 Dose: 1 mg Documented By: CB Magnesium Sulfate (Magnesium Sulfate Ivpb) 2 gm in 50 mls @ 25 mls/hr IV X1 ONE Stop: 01/18/25 18:02 Last Infusion: 01/18/25 22:35 Dose: Infused Documented By: Admin: 01/18/25 20:20 Dose: 25 mls/hr Documented By: CB Comments: pt was just placed in room Sodium Chloride (Ns) 1,000 mls @ 999 mls/hr IV .Q1H1M ONE Stop: 01/18/25 17:03 Last Infusion: 01/18/25 21:31 Dose: Infused Documented By: Admin: 01/18/25 20:17 Dose: 999 mls/hr Documented By: EDMUNDO Comments: pt was just placed in room Sodium Chloride (Ns) 1,000 mls @ 999 mls/hr IV .Q1H1M DELIA Stop: 01/18/25 21:34 Last Infusion: 01/18/25 22:36 Dose: Infused Documented By: Admin: 01/18/25 20:52 Dose: 999 mls/hr Documented By: CB Magnesium Sulfate (Magnesium Sulfate Ivpb) 2 gm in 50 mls @ 25 mls/hr IV X1 ONE Stop: 01/19/25 07:59 Last Admin: 01/19/25 06:35 Dose: 25 mls/hr Documented By: SARAH Magnesium Sulfate (Magnesium Sulfate Ivpb) 4 gm in 50 mls @ 12.5 mls/hr IV X1 ONE Stop: 01/20/25 09:16 Last Admin: 01/20/25 05:33 Dose: 12.5 mls/hr Documented By: SRAAH Sodium Chloride (Ns) 100 mls @ 100 mls/hr IV X1 ONE Stop: 01/20/25 20:05 Last Admin: 01/20/25 21:37 Dose: Not Given Documented By: CCT Non-Admin Reason: Discontinued Lorazepam (Lorazepam 0.5 Mg Tablet) 2 mg SL X1 ONE Stop: 01/18/25 16:04 Last Admin: 01/18/25 20:01 Dose: Not Given Documented By: CB Non-Admin Reason: Cancelled by Provider Lorazepam (Lorazepam 2 Mg/Ml Vial) 2 mg IM X1 ONE Stop: 01/18/25 16:07 Last Admin: 01/18/25 16:16 Dose: 2 mg Documented By: Lorazepam (Lorazepam 2 Mg/Ml Vial) 2 mg IVP X1 ONE Stop: 01/18/25 20:49 Last Admin: 01/18/25 21:04 Dose: 2 mg Documented By: EDMUNDO Lorazepam (Lorazepam 2 Mg/Ml Vial) 1 mg IV Q8HR PRN PRN Reason: Breakthrough severe Agitation Lorazepam (Lorazepam 2 Mg/Ml Vial) 3 mg IV Q8HR PRN PRN Reason: Breakthrough severe Agitation Lorazepam (Lorazepam 2 Mg/Ml Vial) 2 mg IVP X1 ONE Stop: 01/19/25 18:05 Last Admin: 01/19/25 18:28 Dose: 2 mg Documented By: JESSIKA Midazolam HCl (Midazolam Inj 1 Mg/Ml Vial 2 Ml) Confirm Administered Dose 6 mg .ROUTE .STK-MED ONE Stop: 01/20/25 18:59 Midazolam HCl (Midazolam Inj 1 Mg/Ml Vial 2 Ml) 2 mg IV Q2M PRN PRN Reason: Moderate Sedation Stop: 01/20/25 21:04 Nicotine (Nicotine Patch 21 Mg/24 Hr Patch.Td24) 21 mg TOP X1 ONE Stop: 01/18/25 22:57 Last Admin: 01/19/25 00:52 Dose: 21 mg Documented By: EDMUNDO Ondansetron HCl (Ondansetron Odt 4 Mg Tabrap) 4 mg PO X1 ONE; Protocol Stop: 01/18/25 16:07 Last Admin: 01/18/25 16:15 Dose: 4 mg Documented By: Pantoprazole Sodium (Pantoprazole 40 Mg Tablet) 40 mg PO Q12HR DELIA Stop: 02/18/25 08:59 Polyethylene Glycol/Electrolytes (Na Tracy/Nahco3/Mark/Peg (Golytely) 4,000 Ml Btl) 4,000 ml PO X1 ONE Stop: 01/20/25 19:34 Last Admin: 01/20/25 21:30 Dose: 4,000 ml Documented By: CCT Potassium Chloride (Potassium Chloride 20 Meq Tabcr) 20 meq PO X1 ONE Stop: 01/20/25 05:17 Last Admin: 01/20/25 05:35 Dose: 20 meq Documented By: WO Potassium Chloride (Potassium Chloride 20 Meq Tabcr) 40 meq PO X1 ONE Stop: 01/20/25 07:18 Last Admin: 01/20/25 09:34 Dose: 40 meq Documented By: ANKIT Thiamine HCl (Thiamine Inj 100 Mg/Ml Vial 2 Ml) 100 mg IVP X1 ONE Stop: 01/18/25 16:04 Last Admin: 01/18/25 20:17 Dose: 100 mg Documented By: CB Comments: pt just was placed in room See above if any. Diagnosis Differential Diagnosis ED Complaint MDM: alcohol withdrawal,methadone withdrawal,dehydration,electrolyte abnormality
--- NOTE | 2025-01-18 20:34 | EKG_ITS ---
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
[2025-01-18] MEDS: chlordiazePOXIDE HCl 25 MG CAPSULE PO (21:03)
[2025-01-18] MEDS: LORazepam 2 MG/ML VIAL IVP (21:04)
[2025-01-18 21:20] LABS: Acetaminophen < 2.0 mcg/mL (10.0-20.0); Salicylate < 3.0 mg/dL; Thyroid Stimulating Hormone 1.48 uIU/mL (0.55-4.78)
[2025-01-18 21:57] VITALS: BP 131/85; PULSE 106; RESP 19; TEMP 37.6; O2SAT 100
--- NOTE | 2025-01-18 22:50 | XR_ITS ---
Examination: CT abdomen with intravenous contrast CT pelvis with intravenous contrast 2-D coronal reconstructions 2-D sagittal reconstructions Date and time of exam:January 19, 2025 0149 hrs. Comparison November 08, 2024 Indications: Alcohol abuse history, onset weakness upper gastrointestinal bleeding today. CTDI: vol (mGy) 10.9 DLP: (mGycm) 592 Technique: Multiple axial sections of the abdomen and pelvis have been obtained. 64 slice high-resolution scanner used. 3 mm axial sections have been obtained, post intravenous injection 60 cc [id number] 2-D sagittal, coronal reconstructions obtained. Low dose protocols were performed. One or more of the following dose reduction techniques were used; automated exposure control, adjustment of the mA and/or KV according to patient size, use of iterative reconstruction technique. Findings: Small retrocardiac gastric hernia Severe diffuse fatty infiltration throughout the liver with mild hepatomegaly Gallbladder polyp versus small stone Spleen is not enlarged No pancreatic mass No renal or renal calculi, no hydronephrosis No extravasation of contrast material into the gastrointestinal tract No pericecal inflammatory change No diverticulitis Urinary bladder intact No pelvic mass Impression: No contrast extravasation to indicate active gastrointestinal bleeding Recommend hepatobiliary sonography to differentiate gallbladder polyp versus small stones Consider nuclear medicine gastrointestinal bleeding study follow-up or CTA abdomen pelvis post intravenous contrast follow-up
[2025-01-18 23:33] VITALS: PULSE 105; RESP 30; O2SAT 99
[2025-01-18 23:42] VITALS: BP 132/97; PULSE 113; RESP 26; TEMP 37.2; O2SAT 100
[2025-01-18] MEDS: THIAMINE 100 MG TABLET PO (23:46)
[2025-01-18] MEDS: chlordiazePOXIDE HCl 25 MG CAPSULE 50 MG PO (23:47)
[2025-01-18] MEDS: cefTRIAXone/D5w 1gm IV premix 1 GM/50 ML BAG IV (23:47)
[2025-01-18] MEDS: FOLIC ACID 1 MG TABLET PO (23:48)
[2025-01-18] MEDS: DEXTROSE 5%-NS 1,000 ML 100 ML IV (23:48)
--- NOTE | 2025-01-18 23:57 | PD.RESHP ---
Documentation for date of: 01/18/25 HPI History of Present Illness Chief complaint: restlessness, headache History of present illness: Patient is a 54-year-old female with a previous medical history of peptic ulcer disease, COPD, active smoker, alcohol use, methamphetamine use, fentanyl use who came to the ED on 01/18/2025 due to symptoms of alcohol withdrawal and dark bloody stools. She reports having headache, feeling shaky and sensitive to the sounds and light. Her last alcohol dose was this morning. She usually drinks a half of the bottle of whiskey per day. She also is on methadone therapy, but she has not received methadone in the for several days due to having alcohol in the system. ED course: Blood pressure 109/70, heart rate 132, respiratory rate 16, afebrile, saturating well on room air. WBC count 8.1, hemoglobin 12.1, sodium 134, potassium 3.9, chloride 96, carbon dioxide 23, BUN 12, creatinine 0.5, glucose 92, osmolality 267, AST 134, ALT 69, total bilirubin 1.2. EKG showed sinus tachycardia. U tox was positive for methamphetamine. In the ED she received ondansetron 4 mg, lorazepam 2 mg IM and 2 mg IV, chlordiazepoxide 25 mg, IV thiamine and folic acid, magnesium 2 g, 1 L of fluids. Patient is going to be admitted for alcohol withdrawal and suspected GI bleed. Social history: Reports smoking 1 pack a day, reports amphetamine use, reports intermittent fentanyl use, drinks half a bottle of whiskey every day. Is on methadone therapy, but does not receive methadone due to active alcohol use. Medications: Denies taking medications Surgical history: Gastric bypass many years ago, Review of Systems Review of Systems Systems Reviewed: All systems reviewed, normal except as documented Past Medical History Past Medical History RESPIRATORY: Positive Chronic Obstructive Pulmonary Disease (COPD) PSYCHO/SOCIAL: Positive Recreational Drug Use, Depression and Anxiety OTHER HISTORY: Positive Blood Transfusions Surgical History SURGICAL: Positive Gastric Bypass Surgery and Section Exam Vital Signs Temp Pulse Resp BP Pulse Ox O2 Del Method 99.0 F 113 H 26 H 132/97 H 100 Room Air 01/18/25 23:42 01/18/25 23:42 01/18/25 23:42 01/18/25 23:42 01/18/25 23:42 01/18/25 23:42 Narrative Exam Physical Exam General: Awake, mildly restless. HEENT: Normocephalic, atraumatic, mucous membranes moist. Heart: Regular rate and rhythm, no murmurs. Lungs: Clear to auscultation with no wheezing or crackles. Abdomen: Soft, nondistended, nontender, positive bowel sounds. ?No guarding or rebound tenderness. Anal area unremarkable. Neurologic: Alert and oriented x3, hand tremors in extension, and patient able to move all 4 extremities. Extremities: No edema. Skin: No rash or ecchymoses. Results: Labs 01/18/25 16:55 01/18/25 18:00 Labs: Short CBC 01/18/25 Range/Units 16:55 WBC 8.1 (3.6-11.0) Thou/mm3 Hgb 12.1 (12.0-16.0) g/dL Hct 36.0 (36.0-46.0) % Plt Count 252 (140-440) Thou/mm3 BMP 01/18/25 18:00 Sodium 134 L Potassium 3.9 Chloride 96 L Carbon Dioxide 23.0 BUN 12 Creatinine 0.5 L Glucose 92 Calcium 8.0 L Liver Function 01/18/25 Range/Units 18:00 Total Bilirubin 1.2 (0.3-1.2) mg/dL AST 134 H (0-34) U/L ALT 69 H (10-49) U/L Alkaline Phosphatase 229 H (46-116) U/L Albumin 3.4 L (3.5-5.0) gm/dL Quality Measures Quality Measures VTE prophylaxis Medications Home Medications and Allergies Home Medications ?Medication ?Instructions ?Recorded ?Confirmed ?Type buspirone 15 mg tablet 15 mg PO TID #0 tabs 07/04/17 09/06/19 History ipratropium 20 mcg-albuterol 100 2 puff inhalation QID PRN sob #0 07/04/17 09/06/19 History mcg/actuation mist for inhalation inhalations (Combivent Respimat) ferrous sulfate 325 mg (65 mg 325 mg PO QDAY 04/08/18 09/06/19 History iron) tablet (Iron (ferrous sulfate)) loratadine 10 mg tablet (Loradamed) 10 mg PO QDAY 04/08/18 09/06/19 History potassium chloride 8 mEq 8 meq PO TID 04/08/18 09/06/19 History capsule,extended release sertraline 100 mg tablet 100 mg PO QDAY 04/08/18 09/06/19 History lidocaine 5 % topical patch 1 patch topical QDAY 09/06/19 09/06/19 History lurasidone 40 mg tablet (Latuda) 40 mg PO HS 09/06/19 09/06/19 History trazodone 50 mg tablet 50 mg PO HS 09/06/19 09/06/19 History Allergies Allergy/AdvReac Type Severity Reaction Status Date / Time aspirin AdvReac Severe BLEEDING Verified 01/18/25 15:24 ULCERS ibuprofen AdvReac Severe BLEEDING Verified 01/18/25 15:24 ULCERS Visit Medications Acetaminophen (Acetaminophen 325 Mg Tablet) 650 mg PO Q6H PRN PRN Reason: Fever >100.3 or pain 1-3 Stop: 02/17/25 22:35 Chlordiazepoxide HCl (Chlordiazepoxide Hcl 25 Mg Capsule) 50 mg PO Q8HR [facility] Stop: 01/23/25 22:54 Last Admin: 01/18/25 23:47 Dose: 50 mg Enoxaparin Sodium (Enoxaparin Sod Inj 40 Mg/0.4 Ml Syringe) 40 mg SC QDAY [facility] Stop: 02/02/25 08:59 Folic Acid (Folic Acid 1 Mg Tablet) 1 mg PO BID [facility] Stop: 01/23/25 22:44 Last Admin: 01/18/25 23:48 Dose: 1 mg Ceftriaxone Sodium/Dextrose (Rocephin/D5w 1gm Iv Premix) 1 gm in 50 mls @ 100 mls/hr IV QDAY [facility] Stop: 01/25/25 22:53 Last Admin: 01/18/25 23:47 Dose: 100 mls/hr Dextrose/Sodium Chloride (D5-Ns) 1,000 mls @ 100 mls/hr IV .Q10H [facility] Stop: 02/17/25 22:59 Last Admin: 01/18/25 23:48 Dose: 100 mls/hr Lorazepam (Lorazepam 0.5 Mg Tablet) 0.5 mg PO Q4HR PRN PRN Reason: CIWA Score 2-6 Stop: 01/23/25 22:37 Lorazepam (Lorazepam 0.5 Mg Tablet) 1 mg PO Q4HR PRN PRN Reason: CIWA SCORE 7-11 Stop: 01/23/25 22:37 Lorazepam (Lorazepam 0.5 Mg Tablet) 2 mg PO Q4HR PRN PRN Reason: CIWA SCORE 12-15 Stop: 01/23/25 22:37 Lorazepam (Lorazepam 2 Mg/Ml Vial) 1 mg IV Q8HR PRN PRN Reason: Breakthrough severe Agitation Ondansetron HCl (Ondansetron Inj 2 Mg/Ml Inj 2 Ml) 4 mg IV Q6H PRN; Protocol PRN Reason: NAUSEA OR VOMITING Stop: 02/17/25 22:35 Pantoprazole Sodium (Pantoprazole 40 Mg Tablet) 40 mg PO Q12HR [facility] Stop: 02/18/25 08:59 Sennosides (Senna Tablet) 1 tab PO QDAY PRN; Protocol PRN Reason: constipation Stop: 02/17/25 22:35 Thiamine HCl (Thiamine 100 Mg Tablet) 100 mg PO BID DELIA Stop: 01/23/25 22:44 Last Admin: 01/18/25 23:46 Dose: 100 mg Discontinued Medications Chlordiazepoxide HCl (Chlordiazepoxide Hcl 25 Mg Capsule) 25 mg PO X1 ONE Stop: 01/18/25 20:49 Last Admin: 01/18/25 21:03 Dose: 25 mg Chlordiazepoxide HCl (Chlordiazepoxide Hcl 25 Mg Capsule) 25 mg PO Q8HR [facility] Stop: 01/24/25 05:59 Chlordiazepoxide HCl (Chlordiazepoxide Hcl 25 Mg Capsule) 50 mg PO Q8HR [facility] Stop: 01/24/25 05:59 Folic Acid (Folic Acid Inj 1 Mg/0.2 Ml) 1 mg IVP X1 ONE Stop: 01/18/25 16:04 Last Admin: 01/18/25 20:17 Dose: 1 mg Magnesium Sulfate (Magnesium Sulfate Ivpb) 2 gm in 50 mls @ 25 mls/hr IV X1 ONE Stop: 01/18/25 18:02 Last Infusion: 01/18/25 22:35 Dose: Infused Sodium Chloride (Ns) 1,000 mls @ 999 mls/hr IV .Q1H1M ONE Stop: 01/18/25 17:03 Last Infusion: 01/18/25 21:31 Dose: Infused Sodium Chloride (Ns) 1,000 mls @ 999 mls/hr IV .Q1H1M DELIA Stop: 01/18/25 21:34 Last Infusion: 01/18/25 22:36 Dose: Infused Lorazepam (Lorazepam 0.5 Mg Tablet) 2 mg SL X1 ONE Stop: 01/18/25 16:04 Last Admin: 01/18/25 20:01 Dose: Not Given Lorazepam (Lorazepam 2 Mg/Ml Vial) 2 mg IM X1 ONE Stop: 01/18/25 16:07 Last Admin: 01/18/25 16:16 Dose: 2 mg Lorazepam (Lorazepam 2 Mg/Ml Vial) 2 mg IVP X1 ONE Stop: 01/18/25 20:49 Last Admin: 01/18/25 21:04 Dose: 2 mg Nicotine (Nicotine Patch 21 Mg/24 Hr Patch.Td24) 21 mg TOP X1 ONE Stop: 01/18/25 22:57 Ondansetron HCl (Ondansetron Odt 4 Mg Tabrap) 4 mg PO X1 ONE; Protocol Stop: 01/18/25 16:07 Last Admin: 01/18/25 16:15 Dose: 4 mg Thiamine HCl (Thiamine Inj 100 Mg/Ml Vial 2 Ml) 100 mg IVP X1 ONE Stop: 01/18/25 16:04 Last Admin: 01/18/25 20:17 Dose: 100 mg Assessment & Plan Plan Patient is a 54-year-old female with a previous medical history of peptic ulcer disease, COPD, active smoker, alcohol use, methamphetamine use, fentanyl use who came to the ED on 01/18/2025 due to symptoms of alcohol withdrawal and dark bloody stools. Patient is going to be admitted for alcohol withdrawal and suspected GI bleed. #Alcohol withdrawal Patient has a history of alcohol abuse and has been using methamphetamine. CIWA score on examination was 16. Plan: ? CIWA protocol ? Chlordiazepoxide 50 mg every 8 hours p.o. ? IV lorazepam 1 mg every 8 hours as needed for breakthrough agitation ? Thiamine p.o. daily ? Folic acid p.o. daily ? building services engineer consult #Elevated transaminases Likely in the setting of alcohol abuse. Plan: - CT abdomen pelvis with contrast - Hepatitis panel #Suspected GI bleed Patient reports a history of stomach ulcers and reports dark bloody stools. Plan: ? Pantoprazole 40 mg twice daily ? Monitor CBC, transfuse if hemoglobin less than 7 ? GI specialist consulted ?N.p.o. - consider starting octreotide drip based on GI recommendations #History of opioid abuse #History of methamphetamine use Patient has been on methadone therapy and is actively using methamphetamine. Will hold methadone for now due to active alcohol abuse. Plan: ? Consider addiction medicine follow-up outpatient #Active smoker Plan: ? Nicotine patch Health maintenance: FEN: NPO DVT prophylaxis: SCDs GI prophylaxis: pantoprazole 40 mg bid Dispo: telemetry CODE STATUS: Full code Plan of care discussed with attending Dr. Barnes. Ceci Lindo MD, PGY 1. Attending Provider Attestation/Addendum I attest that I was physically present for the evaluation, physical examination, lab and imaging review of the patient with the residents. I discussed the case with the residents and agree with the findings and plans of care as documented above. Patient is a 54 years old female with past medical history of peptic ulcer disease, COPD, alcohol, methamphetamine and fentanyl abuse who presented to the ED with complaint of withdrawal symptoms. Patient is also on methadone therapy but has not received for a few days as she has been drinking heavily. She usually drinks half a bottle of whiskey every day. In the ED, her heart rate was 132 on presentation, rest of the vitals were within normal limits. On labs, WBC is 8.1, hemoglobin 12.1, AST 134, ALT 69, total bilirubin 1.2. EKG showed sinus tachycardia. We will admit the patient for management of alcohol withdrawal syndrome. We will start her on CIWA protocol with IV lorazepam and scheduled chlordiazepoxide. Will also start thiamine, folic acid and IV hydration. Patient also complained of black tarry stool and guaiac was positive, started on Protonix, bowel rest, IV Rocephin. We will also obtain GI consult. Tess Barnes MD
[2025-01-18 23:59] LABS: HCG,Qualitative Serum Negative
[2025-01-18] MEDS: LORazepam 0.5 MG TABLET 1 MG PO (23:59)
[2025-01-19] VITALS (13 sets, daily range): BP systolic 98–136; BP diastolic 65–91; PULSE 89–169; RESP 10–26; TEMP 36–37.2; O2SAT 96–100; BMI 30.1
[2025-01-19 00:02] LABS: Collection Type, Urine Clean Catch
[2025-01-19] MEDS: NICOTINE PATCH 21 MG/24 HR PATCH.TD24 TOP (00:52)
--- NOTE | 2025-01-19 03:08 | PRELIM_ITS ---
CT scan of the abdomen and pelvis with intravenous contrast (axial sections with sagittal and coronal reformats) January 19, 2025 0149 hours Clinical History: Upper GI bleed, history of alcohol use. Comparison: Compared with the prior study dated November 08, 2024. Findings: There is mild hepatomegaly (measuring 20 cm). Fatty infiltration of the liver is again noted. The pancreas, spleen, kidneys and adrenals are unremarkable. Again seen is a calculus within the gallbladder without evidence of wall thickening or pericholecystic fluid. A small hiatal hernia is present. There are post operative changes in the stomach. No evidence of bowel obstruction. No contrast extravasation in the stomach, small or large bowel loops to suggest active gastrointestinal hemorrhage at the time of examination. The appendix is within normal limits (axial images 81-83/156). There is no mesenteric or retroperitoneal adenopathy. The urinary bladder is unremarkable. The uterus and adnexa are unremarkable. There is no free fluid or free air. Degenerative changes are identified in the spine. There are chronic wedge compression fractures of T9 and L2 vertebrae. The lung bases are clear. Please note that evaluation of bowel loops is limited due to absence of oral contrast. Impression: 1. No evidence of acute diverticulitis. 2. No contrast extravasation to indicate active gastrointestinal hemorrhage at the time of examination. 3. Other findings as described above. Suggest clinical correlation and follow up accordingly. Report Electronically Signed By: Deuce Burnett 01/19/2025 3:08:37 AM [EST]
[2025-01-19 03:21] LABS: Bilirubin,Urine 1+ (Negative); Blood,Urine Negative (Negative); Clarity,Urine Clear (Clear/Hazy); Color,Urine Yellow (Lt Yel-Yel); Glucose, Urine Negative (Negative); Ketones,Urine Trace (Negative); Leukocyte Esterase,Urine Negative (Negative); Nitrite,Urine Negative (Negative); PH,Urine 6.5 (5.0-7.0); Protein,Urine Trace (Neg - Trace); RBC,Urine 3 /hpf (0-3); Specific Gravity,Urine 1.028 (1.001-1.035); Squamous Epithelial Cell,Urine 6 /hpf (0-5); WBC,Urine 2 /hpf (0-5)
[2025-01-19] MEDS: chlordiazePOXIDE HCl 25 MG CAPSULE 50 MG PO ×3 (05:31→21:03)
--- NOTE | 2025-01-19 05:59 | EKG_ITS ---
[facility] Test Date: 2025-01-19 Pat Name: GEN AQUINO Department: Room: 62A Gender: Female Brim Stretcher: KAROLINA : 1970 Requested By: Ceci Lindo Order Number: [id number] Reading MD: Ceci Lindo Measurements Intervals [place] Rate: 97 P: 19 PA: 170 QRS: 37 QRSD: 85 T: 262 QT: 378 QTc: 482 Interpretive Statements SINUS RHYTHM ST DEVIATION AND MODERATE T-WAVE ABNORMALITY, CONSIDER ANTEROLATERAL ISCHEMIA ST DEVIATION AND MODERATE T-WAVE ABNORMALITY, CONSIDER INFERIOR ISCHEMIA Compared to ECG 01/18/2025 21:53:41 Sinus tachycardia no longer present T-wave abnormality still present Possible ischemia still present /store/S0/[id number]
[2025-01-19] MEDS: Magnesium Sulfate 2 GM Ivpb 2 GM/50 ML BAG IV (06:35)
[2025-01-19 06:39] LABS: Basophils % (Auto) 1 % (0-2.5); Eosinophils % (Auto) 1 % (0-10); Hematocrit 29.5 % (36.0-46.0); Hemoglobin 9.6 g/dL (12.0-16.0); Immature Granulocytes % (Auto) 0 % (0-0); Immature Granulocytes Auto 0.01 Thou/mm3 (0.00-0.00); Lymphocytes # (Auto) 1.5 Thou/mm3 (1.0-4.8); Lymphocytes % (Auto) 25 % (10-50); Mean Corpuscular HGB Conc 32.5 g/dl (31.0-37.0); Mean Corpuscular Hemoglobin 28.7 pg (25.0-35.0); Mean Corpuscular Volume 88 fL (80-100); Monocytes # (Auto) 0.6 Thou/mm3 (0.0-0.8); Monocytes % (Auto) 10 % (0-12); Neutrophils # (Auto) 3.7 Thou/mm3 (1.8-7.7); Neutrophils % (Auto) 64 % (37-80); Nucleated Red Blood Cell % 0 /100 WBC (0); Platelet Count 130 Thou/mm3 (140-440); RDW Standard Deviation 64.4 fL (36.4-46.3); Red Blood Count 3.35 Miln/mm3 (4.00-5.20); White Blood Count 5.8 Thou/mm3 (3.6-11.0)
[2025-01-19 07:25] LABS: Alanine Aminotransferase 49 U/L (10-49); Albumin, Serum 2.7 gm/dL (3.5-5.0); Albumin/Globulin Ratio 1.2 (1.2-2.2); Alkaline Phosphatase 186 U/L (46-116); Anion Gap 8 (7-16); Aspartate Amino Transferase 103 U/L (0-34); BUN/Creatinine Ratio 30 Ratio (12-20); Bilirubin,Total 1.2 mg/dL (0.3-1.2); Blood Urea Nitrogen 15 mg/dL (9-23); Calcium 7.3 mg/dL (8.3-10.6); Calcium (Corrected) 8.3 mg/dL (8.5-10.1); Carbon Dioxide 25.8 mMol/L (20.0-31.0); Chloride 105 mMol/L (98-107); Creatinine (Component) 0.5 mg/dL (0.6-1.3); Estimated Creatinine Clearance 124.5 mL/min (>60); Globulin 2.3 gm/dL (2.3-3.5); Glucose 93 mg/dL (74-106); Magnesium 2.2 mg/dL (1.6-2.6); Osmolality,Calculated 278 (275-295); Potassium 3.6 mMol/L (3.4-5.1); Sodium 139 mMol/L (136-145); eGFR > 60 See Note
[2025-01-19 07:34] LABS: Hepatitis A Antibody IgM Non Reactive (Non React); Hepatitis B Core Antibody IgM Non Reactive (Non React); Hepatitis B Surface Antigen Non Reactive (Non React); Hepatitis C Antibody Non Reactive (Non React)
[2025-01-19] MEDS: LORazepam 0.5 MG TABLET 2 MG PO ×4 (07:58→21:03)
[2025-01-19] MEDS: cefTRIAXone/D5w 1gm IV premix 1 GM/50 ML BAG IV (08:09)
[2025-01-19] MEDS: PANTOPRAZOLE INJ 40 MG VIAL IVP ×2 (08:09→21:08)
[2025-01-19] MEDS: FOLIC ACID 1 MG TABLET PO ×2 (08:10→21:03)
[2025-01-19] MEDS: THIAMINE 100 MG TABLET PO ×2 (08:10→21:03)
[2025-01-19] MEDS: DEXTROSE 5%-NS 1,000 ML 100 ML IV ×2 (09:18→21:08)
--- NOTE | 2025-01-19 11:36 | ESPR_ITS ---
<Statement entered by Scar Carson MD - 01/20/25 14:35> I discussed with and supervised the communications marketing intern physician involved in the care of this patient. Patient assessment and plan was discussed with entire medicine team, including my attending. I agree with the assessment and plan as documented by communications marketing intern doctor. Patient care was discussed with my attending physician Dr. Liudmila Carson, PGY-2 Documentation for date of: 01/19/25 Subjective Subjective Interval history: Patient examined at bedside. Complains of feeling weak and lethargic. She was requesting methadone however due to U-Tox positive with methamphetamine and alcohol use, patient is unable to get methadone in patient. She will need to follow up with clinic after discharge. Telemetry reviewed patient was in normal sinus rhythm tachycardic 100?110. CIWA was 12 and patient was given 2 mg lorazepam. Currently n.p.o. for workup of GI bleed-- EGD pending. Hemoglobin has down trended from 12 at admission to 9.6 this morning. LFTs downtrending. Hepatitis B panel negative. Continue CIWA, scheduled Librium, thiamine, folic acid. Exam Vital Signs Temp Pulse Resp BP Pulse Ox O2 Del Method 96.8 F 100 10 L 120/87 H 96 Room Air 01/19/25 08:00 01/19/25 09:18 01/19/25 09:18 01/19/25 08:00 01/19/25 09:18 01/19/25 08:00 Narrative Exam General: middle aged female, sleeping, lethargic HEENT: Normocephalic, atraumatic, mucous membranes dry, no icterus, no obvious sweats Heart: Tachycardic rate and regular rhythm, no murmurs. Lungs: Clear to auscultation with no wheezing or crackles. Abdomen: Soft, nondistended, nontender, positive bowel sounds. ?No guarding or rebound tenderness. Neurologic: Alert and oriented x3, hand tremors in extension, and patient able to move all 4 extremities. Extremities: No edema. Skin: No rash or ecchymoses. Objective Labs 01/19/25 06:06 01/19/25 06:06 Labs: Laboratory Results - last 24 hr 01/18/25 01/18/25 01/18/25 16:55 18:00 18:54 WBC 8.1 RBC 4.33 Hgb 12.1 Hct 36.0 MCV 83 MCH 27.9 MCHC 33.6 RDW Std Deviation 61.2 H Plt Count 252 Neut % (Auto) 81 H Lymph % (Auto) 7 L Person % (Auto) 11 Eos % (Auto) 0 Baso % (Auto) 0 Neut # (Auto) 6.6 Lymph # (Auto) 0.6 L Person # (Auto) 0.9 H Eos # (Auto) 0.0 Baso # (Auto) 0.0 Immature Gran # (Auto) 0.02 H Absolute Nucleated RBC 0.00 Immature Gran % 0 Nucleated RBC % 0 Sodium 134 L Potassium 3.9 Chloride 96 L Carbon Dioxide 23.0 Anion Gap 15 BUN 12 Creatinine 0.5 L Estim Creat Clear Calc 125.4 eGFR > 60 BUN/Creatinine Ratio 24 H Glucose 92 Calculated Osmolality 267 L Calcium 8.0 L Corrected Calcium 8.5 Phosphorus Magnesium Total Bilirubin 1.2 AST 134 H ALT 69 H Alkaline Phosphatase 229 H Ammonia 21 Total Protein 6.3 Albumin 3.4 L Globulin 2.9 Albumin/Globulin Ratio 1.2 TSH 1.48 HCG, Qual Ur Collection Type Urine Color Urine Clarity Urine pH Ur Specific [place] Urine Protein Urine Glucose (UA) Urine Ketones Urine Blood Urine Nitrite Urine Bilirubin Urine Urobilinogen (Auto) Ur Leukocyte Esterase Urine RBC Urine WBC Ur Squamous Epith Cells Urine Bacteria Salicylates < 3.0 Urine Opiates Screen Negative Urine Fentanyl Screen Negative Acetaminophen < 2.0 L Ur Barbiturates Screen Negative U Amphetamin/Meth Scrn Positive A U Benzodiazepines Scrn Negative U Cocaine Metab Screen Negative U Marijuana (THC) Screen Negative Ethyl Alcohol 10.9 H Hepatitis A IgM Ab Hep Bs Antigen Hep B Core IgM Ab Hepatitis C Antibody 01/18/25 01/18/25 01/19/25 23:17 23:55 06:06 WBC 5.8 RBC 3.35 L Hgb 9.6 L D Hct 29.5 L MCV 88 MCH 28.7 MCHC 32.5 RDW Std Deviation 64.4 H Plt Count 130 L D Neut % (Auto) 64 Lymph % (Auto) 25 Person % (Auto) 10 Eos % (Auto) 1 Baso % (Auto) 1 Neut # (Auto) 3.7 Lymph # (Auto) 1.5 Person # (Auto) 0.6 Eos # (Auto) 0.0 Baso # (Auto) 0.0 Immature Gran # (Auto) 0.01 H Absolute Nucleated RBC 0.00 Immature Gran % 0 Nucleated RBC % 0 Sodium 139 Potassium 3.6 Chloride 105 Carbon Dioxide 25.8 Anion Gap 8 BUN 15 Creatinine 0.5 L Estim Creat Clear Calc 124.5 eGFR > 60 BUN/Creatinine Ratio 30 H Glucose 93 Calculated Osmolality 278 Calcium 7.3 L Corrected Calcium 8.3 L Phosphorus 3.0 Magnesium 2.2 Total Bilirubin 1.2 AST 103 H ALT 49 Alkaline Phosphatase 186 H D Ammonia Total Protein 5.0 L Albumin 2.7 L D Globulin 2.3 Albumin/Globulin Ratio 1.2 TSH HCG, Qual Negative Ur Collection Type Clean Catch Urine Color Yellow Urine Clarity Clear Urine pH 6.5 Ur Specific [place] 1.028 Urine Protein Trace Urine Glucose (UA) Negative Urine Ketones Trace Urine Blood Negative Urine Nitrite Negative Urine Bilirubin 1+ A Urine Urobilinogen (Auto) 2.0 Ur Leukocyte Esterase Negative Urine RBC 3 Urine WBC 2 Ur Squamous Epith Cells 6 H Urine Bacteria None Salicylates Urine Opiates Screen Urine Fentanyl Screen Acetaminophen Ur Barbiturates Screen U Amphetamin/Meth Scrn U Benzodiazepines Scrn U Cocaine Metab Screen U Marijuana (THC) Screen Ethyl Alcohol Hepatitis A IgM Ab Non Reactive Hep Bs Antigen Non Reactive Hep B Core IgM Ab Non Reactive Hepatitis C Antibody Non Reactive Quality Measures Quality Measures VTE prophylaxis Assessment & Plan Assessment Current Active Medications: Generic Name Dose Route Start Last Admin Trade Name Freq PRN Reason Stop Dose Admin Acetaminophen 650 mg 01/18/25 22:36 Acetaminophen 325 Mg Tablet PO 02/17/25 22:35 Q6H PRN Fever >100.3 or pain 1-3 Chlordiazepoxide HCl 50 mg 01/18/25 22:55 01/19/25 05:31 Chlordiazepoxide Hcl 25 Mg Capsule PO 01/23/25 22:54 50 mg Q8HR DELIA Administration Folic Acid 1 mg 01/18/25 22:45 01/19/25 08:10 Folic Acid 1 Mg Tablet PO 01/23/25 22:44 1 mg BID DELIA Administration Ceftriaxone Sodium/Dextrose 1 gm in 50 mls @ 100 mls/hr 01/18/25 22:54 01/19/25 08:09 Rocephin/D5w 1gm Iv Premix IV 01/25/25 22:53 100 mls/hr QDAY DELIA Administration Dextrose/Sodium Chloride 1,000 mls @ 100 mls/hr 01/18/25 23:00 01/19/25 09:18 D5-Ns IV 02/17/25 22:59 100 mls/hr .Q10H DELIA Administration Lorazepam 0.5 mg 01/18/25 22:38 Lorazepam 0.5 Mg Tablet PO 01/23/25 22:37 Q4HR PRN CIWA Score 2-6 Lorazepam 1 mg 01/18/25 22:38 01/18/25 23:59 Lorazepam 0.5 Mg Tablet PO 01/23/25 22:37 1 mg Q4HR PRN Administration CIWA SCORE 7-11 Lorazepam 2 mg 01/18/25 22:38 01/19/25 07:58 Lorazepam 0.5 Mg Tablet PO 01/23/25 22:37 2 mg Q4HR PRN Administration CIWA SCORE 12-15 Lorazepam 1 mg 01/19/25 00:37 Lorazepam 2 Mg/Ml Vial IVP 01/24/25 00:36 Q8HR PRN Breakthrough agitation Ondansetron HCl 4 mg 01/18/25 22:36 Ondansetron Inj 2 Mg/Ml Inj 2 Ml IV 02/17/25 22:35 Q6H PRN NAUSEA OR VOMITING Protocol Pantoprazole Sodium 40 mg 01/19/25 09:00 01/19/25 08:09 Pantoprazole Inj 40 Mg Vial IVP 02/18/25 08:59 40 mg BID DELIA Administration Sennosides 1 tab 01/18/25 22:36 Senna Tablet PO 02/17/25 22:35 QDAY PRN constipation Protocol Thiamine HCl 100 mg 01/18/25 22:45 01/19/25 08:10 Thiamine 100 Mg Tablet PO 01/23/25 22:44 100 mg BID DELIA Administration Plan Patient is a 54-year-old female with a previous medical history of peptic ulcer disease, COPD, active smoker, alcohol use, methamphetamine use, fentanyl use who came to the ED on 01/18/2025 due to symptoms of alcohol withdrawal and dark bloody stools. Patient is going to be admitted for alcohol withdrawal and suspected GI bleed. #Alcohol withdrawal #Alcohol use disorder Patient has a history of alcohol abuse and has been using methamphetamine. CIWA score on admission was 16. Last drink was morning before admission. Typically drinks every day (half a bottle of whiskey?). Plan: ? CIWA protocol ? Chlordiazepoxide 50 mg every 8 hours p.o. ? IV lorazepam 1 mg every 8 hours as needed for breakthrough agitation ? Thiamine p.o. daily ? Folic acid p.o. daily ? phlebotomy services representative consult Likely in the setting of alcohol abuse. Plan: - CT abdomen pelvis with contrast - Hepatitis panel #Suspected GI bleed #Transaminitis Patient reports a history of stomach ulcers and reports dark bloody stools. AST 134, ALT 69 on admission. No coagulopathy. Hepatitis B panel negative, CT A/P possible gallbladder polyp vs small stones. Normal CBD. Plan: ? Pantoprazole 40 mg twice daily ? Monitor CBC, CMP - transfuse if hemoglobin less than 7 ? GI consulted: possible EGD today. ?N.p.o. #History of opioid abuse #History of methamphetamine use #Polysubstance use disorder Patient has been on methadone therapy and is actively using methamphetamine. Will hold methadone for now due to active alcohol abuse. Plan: ? Consider addiction medicine follow-up outpatient #Active smoker Plan: ? Nicotine patch Health maintenance: FEN: NPO DVT prophylaxis: SCDs GI prophylaxis: pantoprazole 40 mg bid Dispo: telemetry CODE STATUS: Full code The patient's management plan was discussed with my attending physician Dr. Nur. Agata Valderrama, PGY-1 Attending Provider Attestation/Addendum 54-year-old female with substance use disorder, admitted for alcohol withdrawal. The patient is on CIWA protocol. She was also admitted for GI bleed, transaminitis. Workup pending. The patient is hemodynamically stable. Discussed with housestaff
--- NOTE | 2025-01-19 11:45 | PC.SS ---
Follow up note: GI bleed work up. On CWAL protocol.
--- NOTE | 2025-01-19 16:17 | PC.SS ---
SS met with patient regarding her d/c plan.? Pt is alert/oriented.? Pt was admitted for Alcohol Withdrawal.? Pt confirmed demographic and contact information is correct on facesheet.? Pt resides aone.? Pt ambulates using a cane.? Pt is ok with all ADLs.? Pt named her boyfriend, Amisha Osborn medical decision maker if she is unable.? Patient?s choice is to return home upon d/c.? Pt states she consumes alcohol everyday for the past 8 years.? Pt explained she prefers whiskey and had 2 shots yesterday before being hospitalized.? Pt states she is connected to case advocate, Moreno from [employer] who is assisting her with list of AA meeting.? Pt is receptive resources.? Pt states she does not have PCP and is agreeable to follow up with physician residents at [facility]. D/C plan:? Return home Next of Kin:? ?Amisha Osborn, boyfriend, phone# [phone] PCP:? will establish at [facility] Address:? Correct on facesheet
--- NOTE | 2025-01-19 17:16 | PC.SS ---
MICROCOMPUTER TECHNICIAN met with patient at bedside.? Present with patient was child welfare caseworker from [facility], Alexis Gilbert .? Patient requesting to be transitioned to inpatient substance abuse program (60-90 days) upon discharge from the hospital.? Patient prefers [place] area.? MICROCOMPUTER TECHNICIAN informed patient that request will be forwarded to inventory planner.? Discussed with patient that if preferred location does not possess inpatient substance abuse programs search area will be expanded.? Patient acknowledged possible need to expand search.? Patient gave verbal permission for social service manager to provide child welfare caseworker with updates.? Bedside nurse provided with update.
[2025-01-19] MEDS: LORazepam 2 MG/ML VIAL IVP (18:28)
--- NOTE | 2025-01-19 20:24 | PD.IMCONS ---
HPI Data of Consult Requesting Physician: David Nur MD Primary Care Provider: Physician No Primary/Family Consult Narrative Reason for consult: Dark stools drop in hemoglobin hematocrit History of present illness: 54 years old female admitted to the hospital with alcohol withdrawal as well as methadone withdrawal who also complained of dark stools with the initial presenting hemoglobin of 12.1 hematocrit 38.0 with a BUN/creatinine of 12 and 0.5 Hemoglobin hematocrit subsequently stopped down to 9.6 and 29.5 with a platelet count of 130,000 Patient is a abuser of alcohol drinking hard liquor 12-14 shots a day as well as on the methadone clinic program and she did not get the methadone as she showed up drunk at the methadone clinic and was refused the methadone dose She has a history of COPD anxiety depression alcohol and methamphetamine abuse and has a history of gastric bypass procedure cc:: cc: David Nur MD Review of Systems Review of Systems ROS Unobtainable: unobtainable due to medical condition Past Medical History Surgical History OTHER SURGICAL HX: As in the history of present illness Meds Home Medications and Allergies Home Medications ?Medication ?Instructions ?Recorded ?Confirmed ?Type buspirone 15 mg tablet 15 mg PO TID #0 tabs 07/04/17 09/06/19 History ipratropium 20 mcg-albuterol 100 2 puff inhalation QID PRN sob #0 07/04/17 09/06/19 History mcg/actuation mist for inhalation inhalations (Combivent Respimat) ferrous sulfate 325 mg (65 mg 325 mg PO QDAY 04/08/18 09/06/19 History iron) tablet (Iron (ferrous sulfate)) loratadine 10 mg tablet (Loradamed) 10 mg PO QDAY 04/08/18 09/06/19 History potassium chloride 8 mEq 8 meq PO TID 04/08/18 09/06/19 History capsule,extended release sertraline 100 mg tablet 100 mg PO QDAY 04/08/18 09/06/19 History lidocaine 5 % topical patch 1 patch topical QDAY 09/06/19 09/06/19 History lurasidone 40 mg tablet (Latuda) 40 mg PO HS 09/06/19 09/06/19 History trazodone 50 mg tablet 50 mg PO HS 09/06/19 09/06/19 History Allergies Allergy/AdvReac Type Severity Reaction Status Date / Time aspirin AdvReac Severe BLEEDING Verified 01/18/25 15:24 ULCERS ibuprofen AdvReac Severe BLEEDING Verified 01/18/25 15:24 ULCERS Exam Vital Signs Temp Pulse Resp BP Pulse Ox O2 Del Method 97.2 F 94 22 H 98/65 98 Room Air 01/19/25 16:00 01/19/25 19:21 01/19/25 19:21 01/19/25 16:00 01/19/25 19:21 01/19/25 16:00 Constitutional Comments: Chronically ill-appearing Routine Respiratory Exam Comments: Normal to auscultation Routine Abdominal Exam Comments: Positive bowel sounds Results Labs 01/19/25 06:06 01/19/25 06:06 Labs: Short CBC 01/19/25 Range/Units 06:06 WBC 5.8 (3.6-11.0) Thou/mm3 Hgb 9.6 L D (12.0-16.0) g/dL Hct 29.5 L (36.0-46.0) % Plt Count 130 L D (140-440) Thou/mm3 BMP 01/19/25 06:06 Sodium 139 Potassium 3.6 Chloride 105 Carbon Dioxide 25.8 BUN 15 Creatinine 0.5 L Glucose 93 Calcium 7.3 L Liver Function 01/19/25 Range/Units 06:06 Total Bilirubin 1.2 (0.3-1.2) mg/dL AST 103 H (0-34) U/L ALT 49 (10-49) U/L Alkaline Phosphatase 186 H D (46-116) U/L Albumin 2.7 L D (3.5-5.0) gm/dL Urine 01/18/25 Range/Units 23:55 Urine Color Yellow (Lt Yel-Yel) Urine Clarity Clear (Clear/Hazy) Urine pH 6.5 (5.0-7.0) Ur Specific Silas 1.028 (1.001-1.035) Urine Protein Trace (Neg - Trace) Urine Glucose (UA) Negative (Negative) Assessment and Plan Additional Assessment & Plan Additional Plan: Occult GI bleeding Plan Consent obtained for fiberoptic esophagogastroduodenoscopy with possible biopsy possible therapeutic intervention under intravenous moderate sedation Scheduled for tomorrow Octreotide infusion at 50 mcg/h Serial CBC Transfuse PRBC if the hemoglobin hematocrit drops below 7 g Other medical problems include Alcohol and methadone withdrawal COPD Anxiety neurosis and depression Status post gastric bypass procedure Thank you very much for the opportunity to participate in the care of this patient
[2025-01-19 21:29] LABS: OBG Card Lot # 23001; OBG Developer Lot # 23002; OBG Performed By wooll1; OBG QC OK? Yes
[2025-01-19 22:04] LABS: Occult Blood, Gastric Negative (Negative)
[2025-01-20] VITALS (20 sets, daily range): BP systolic 103–139; BP diastolic 66–94; PULSE 82–192; RESP 12–99; TEMP 36.1–36.6; O2SAT 92–100; BMI 30.1
[2025-01-20] MEDS: LORazepam 0.5 MG TABLET 2 MG PO (02:07)
[2025-01-20] MEDS: chlordiazePOXIDE HCl 25 MG CAPSULE 50 MG PO ×2 (05:11→21:28)
--- NOTE | 2025-01-20 05:16 | EKG_ITS ---
[facility] Test Date: 2025-01-20 Pat Name: GEN AQUINO [facility] Gender: Female Aut[employer]: [id number] : [id number] Requested By: Tono Lu Order Number: [id number] Reading MD: Tono Lu Measurements Intervals [place] Rate: 156 P: AK: QRS: 60 QRSD: 80 T: 236 QT: 302 QTc: 487 Interpretive Statements ATRIAL FIBRILLATION WITH RAPID VENTRICULAR RESPONSE ST DEVIATION AND MODERATE T-WAVE ABNORMALITY, CONSIDER LATERAL ISCHEMIA ST DEVIATION AND MODERATE T-WAVE ABNORMALITY, CONSIDER INFERIOR ISCHEMIA Compared to ECG 01/19/2025 06:07:55 Sinus rhythm no longer present T-wave abnormality still present Possible ischemia still present /store/S0/[id number].pdf
[2025-01-20] MEDS: LORazepam 2 MG/ML VIAL 1 MG IVP (05:27)
[2025-01-20] MEDS: DILTIAZEM INJ 5 MG/ML VIAL 5 ML 15 MG IV (05:33)
[2025-01-20] MEDS: Magnesium Sulfate 4 GM Ivpb 4 GM/50 ML BAG IV (05:33)
[2025-01-20] MEDS: POTASSIUM CHLORIDE 20 mEq TABCR PO (05:35)
[2025-01-20 06:10] LABS: Basophils % (Auto) 0 % (0-2.5); Eosinophils # (Auto) 0.2 Thou/mm3 (0.0-0.5); Eosinophils % (Auto) 4 % (0-10); Hematocrit 30.6 % (36.0-46.0); Hemoglobin 9.6 g/dL (12.0-16.0); Immature Granulocytes % (Auto) 0 % (0-0); Immature Granulocytes Auto 0.02 Thou/mm3 (0.00-0.00); Lymphocytes # (Auto) 1.5 Thou/mm3 (1.0-4.8); Lymphocytes % (Auto) 33 % (10-50); Mean Corpuscular HGB Conc 31.4 g/dl (31.0-37.0); Mean Corpuscular Hemoglobin 27.7 pg (25.0-35.0); Mean Corpuscular Volume 88 fL (80-100); Monocytes # (Auto) 0.5 Thou/mm3 (0.0-0.8); Monocytes % (Auto) 11 % (0-12); Neutrophils # (Auto) 2.3 Thou/mm3 (1.8-7.7); Neutrophils % (Auto) 51 % (37-80); Nucleated Red Blood Cell % 0 /100 WBC (0); Platelet Count 108 Thou/mm3 (140-440); RDW Standard Deviation 62.7 fL (36.4-46.3); Red Blood Count 3.47 Miln/mm3 (4.00-5.20); White Blood Count 4.6 Thou/mm3 (3.6-11.0)
[2025-01-20] MEDS: DEXTROSE 5%-NS 1,000 ML 100 ML IV ×2 (06:11→21:29)
--- NOTE | 2025-01-20 06:14 | PC.NURSE ---
DIRECTOR MANUFACTURING ENGINEERING called due to new onset chest pain, sustained HR of 160's-170's. EKG and labs done. Diltiazem 15mg IV push, 4mg magnesium IV, potassium PO, Ativan IV push (See MAR) ordered and given.
--- NOTE | 2025-01-20 06:15 | PD.RESEVENT ---
Documentation for date of: 01/20/25 Event Note Event Note: At approximately 5:10 AM rapid response was called due to patient having chest discomfort and heart rate in the 140s?160s, blood pressure was 130/92, she was saturating well on room air. EKG showed MAT. She continued to fluctuate between heart rate in the 70s?80s and 140s?160s. She was given lorazepam 1 mg IV, IV magnesium, p.o. potassium, diltiazem 15 IV. Troponin I was ordered. She reported that the chest tightness resolved. Plan of care discussed with attending Dr. Barnes. Ceci Lindo MD, PGY 1.
[2025-01-20 07:05] LABS: Alanine Aminotransferase 45 U/L (10-49); Albumin, Serum 2.6 gm/dL (3.5-5.0); Albumin/Globulin Ratio 1.1 (1.2-2.2); Alkaline Phosphatase 196 U/L (46-116); Anion Gap 7 (7-16); Aspartate Amino Transferase 90 U/L (0-34); BUN/Creatinine Ratio 13 Ratio (12-20); Bilirubin,Total 0.7 mg/dL (0.3-1.2); Blood Urea Nitrogen 5 mg/dL (9-23); Calcium 7.7 mg/dL (8.3-10.6); Calcium (Corrected) 8.8 mg/dL (8.5-10.1); Chloride 110 mMol/L (98-107); Creatinine (Component) 0.4 mg/dL (0.6-1.3); Estimated Creatinine Clearance 155.6 mL/min (>60); Globulin 2.3 gm/dL (2.3-3.5); Glucose 84 mg/dL (74-106); Osmolality,Calculated 277 (275-295); Phosphorous 3.1 mg/dL (2.4-5.1); Potassium 3.4 mMol/L (3.4-5.1); Sodium 141 mMol/L (136-145); Total Protein 4.9 gm/dL (5.7-8.2); eGFR > 60 See Note
[2025-01-20 07:17] LABS: Troponin I < 0.020 ng/mL (0.0-0.045)
[2025-01-20] MEDS: POTASSIUM CHLORIDE 20 mEq TABCR 40 MEQ PO (09:34)
[2025-01-20] MEDS: cefTRIAXone/D5w 1gm IV premix 1 GM/50 ML BAG IV (09:35)
[2025-01-20] MEDS: ACETAMINOPHEN 325 MG TABLET 650 MG PO (09:35)
[2025-01-20] MEDS: THIAMINE 100 MG TABLET PO ×2 (09:35→21:29)
[2025-01-20] MEDS: LORazepam 0.5 MG TABLET 1 MG PO (09:36)
[2025-01-20] MEDS: FOLIC ACID 1 MG TABLET PO ×2 (09:36→21:29)
[2025-01-20] MEDS: PANTOPRAZOLE INJ 40 MG VIAL IVP ×2 (09:36→21:28)
[2025-01-20] MEDS: ONDANSETRON INJ 2 MG/ML INJ 2 ML 4 MG IV (09:37)
[2025-01-20] MEDS: METHADONE SOLUTION 1 MG/1 ML 60 MG PO (12:19)
[2025-01-20 12:30] LABS: Potassium 3.9 mMol/L (3.4-5.1)
--- NOTE | 2025-01-20 13:27 | ESPR_ITS ---
<Statement entered by Scar Carson MD - 01/20/25 14:27> I discussed with and supervised the risk intern physician involved in the care of this patient. Patient assessment and plan was discussed with entire medicine team, including my attending. I agree with the assessment and plan as documented by risk intern doctor. Patient care was discussed with my attending physician Dr. Liudmila Carson, PGY-2 Documentation for date of: 01/20/25 Subjective Subjective Interval history: Patient examined at bedside. Overnight there was rapid response called due to tachycardia rate 140?150 and initial telemetry showing A-fib. High suspicion of MAT on EKG. Electrolytes were repleted with mag and potassium, also given lorazepam 1 mg and diltiazem 15 mg. IV. She complains of body aches and lethargy. Possibly due to withdrawal and not being on methadone. Patient stated that she sees [facility] methadone clinic in [place]. I reached out to the clinic said that patient went to [facility] on [address] for courtesy dose. I spoke with clinic in [place] who said that patient was last given methadone 80 mg liquid on 01/10 was lost to follow-up on the . Patient to be given 60 mg methadone during hospitalization and instructed to follow-up with clinic after discharge. Vitals stable telemetry reviewed patient in normal sinus rhythm rate 90?100. Hemoglobin stable, platelets downtrending 108, LFTs downtrending. Continue CIWA and scheduled Librium. Plan for EGD today for workup of upper GI bleed. Continue pantoprazole 40 mg daily. Exam Vital Signs Temp Pulse Resp BP Pulse Ox O2 Del Method 97.3 F 100 20 118/71 99 Room Air 01/20/25 12:00 01/20/25 12:00 01/20/25 12:01/20/25 12:01/20/25 12:01/20/25 12:00 Narrative Exam General: middle aged female, sleeping, lethargic HEENT: Normocephalic, atraumatic, mucous membranes dry, no icterus, no obvious sweats Heart: Tachycardic rate and regular rhythm, no murmurs. Lungs: Clear to auscultation with no wheezing or crackles. Abdomen: Soft, nondistended, nontender, positive bowel sounds. ?No guarding or rebound tenderness. Neurologic: Alert and oriented x3, hand tremors in extension, and patient able to move all 4 extremities. Extremities: No edema. Skin: No rash or ecchymoses. Objective Labs 01/20/25 05:18 01/20/25 11:35 Labs: Laboratory Results - last 24 hr 01/19/25 01/20/25 01/20/25 12:40 05:18 11:35 WBC 4.6 RBC 3.47 L Hgb 9.6 L Hct 30.6 L MCV 88 MCH 27.7 MCHC 31.4 RDW Std Deviation 62.7 H Plt Count 108 L Neut % (Auto) 51 Lymph % (Auto) 33 [place] % (Auto) 11 Eos % (Auto) 4 Baso % (Auto) 0 Neut # (Auto) 2.3 Lymph # (Auto) 1.5 [place] # (Auto) 0.5 Eos # (Auto) 0.2 Baso # (Auto) 0.0 Immature Gran # (Auto) 0.02 H Absolute Nucleated RBC 0.00 Immature Gran % 0 Nucleated RBC % 0 Sodium 141 Potassium 3.4 3.9 D Chloride 110 H Carbon Dioxide 24.0 Anion Gap 7 BUN 5 L Creatinine 0.4 L Estim Creat Clear Calc 155.6 eGFR > 60 BUN/Creatinine Ratio 13 Glucose 84 Calculated Osmolality 277 Calcium 7.7 L Corrected Calcium 8.8 Phosphorus 3.1 Magnesium 2.0 Total Bilirubin 0.7 D AST 90 H ALT 45 Alkaline Phosphatase 196 H Troponin I < 0.020 Total Protein 4.9 L Albumin 2.6 L Globulin 2.3 Albumin/Globulin Ratio 1.1 L Gastric Occult Blood Negative Quality Measures Quality Measures VTE prophylaxis Assessment & Plan Assessment Current Active Medications: Generic Name Dose Route Start Last Admin Trade Name Freq PRN Reason Stop Dose Admin Acetaminophen 650 mg 01/18/25 22:36 01/20/25 09:35 Acetaminophen 325 Mg Tablet PO 02/17/25 22:35 650 mg Q6H PRN Administration Fever >100.3 or pain 1-3 Chlordiazepoxide HCl 50 mg 01/18/25 22:55 01/20/25 05:11 Chlordiazepoxide Hcl 25 Mg Capsule PO 01/23/25 22:54 50 mg Q8HR DELIA Administration Folic Acid 1 mg 01/18/25 22:45 01/20/25 09:36 Folic Acid 1 Mg Tablet PO 01/23/25 22:44 1 mg BID DELIA Administration Ceftriaxone Sodium/Dextrose 1 gm in 50 mls @ 100 mls/hr 01/18/25 22:54 01/20/25 09:35 Rocephin/D5w 1gm Iv Premix IV 01/25/25 22:53 100 mls/hr QDAY DELIA Administration Dextrose/Sodium Chloride 1,000 mls @ 100 mls/hr 01/18/25 23:00 01/20/25 06:11 D5-Ns IV 02/17/25 22:59 100 mls/hr .Q10H DELIA Administration Lorazepam 0.5 mg 01/18/25 22:38 Lorazepam 0.5 Mg Tablet PO 01/23/25 22:37 Q4HR PRN CIWA Score 2-6 Lorazepam 1 mg 01/18/25 22:38 01/20/25 09:36 Lorazepam 0.5 Mg Tablet PO 01/23/25 22:37 1 mg Q4HR PRN Administration CIWA SCORE 7-11 Lorazepam 2 mg 01/18/25 22:38 01/20/25 02:07 Lorazepam 0.5 Mg Tablet PO 01/23/25 22:37 2 mg Q4HR PRN Administration CIWA SCORE 12-15 Lorazepam 1 mg 01/19/25 00:37 01/20/25 05:27 Lorazepam 2 Mg/Ml Vial IVP 01/24/25 00:36 1 mg Q8HR PRN Administration Breakthrough agitation Methadone HCl 60 mg 01/20/25 10:30 01/20/25 12:19 Methadone Solution 1 Mg/1 Ml PO 01/25/25 10:29 60 mg QDAY DELIA Administration Ondansetron HCl 4 mg 01/18/25 22:36 01/20/25 09:37 Ondansetron Inj 2 Mg/Ml Inj 2 Ml IV 02/17/25 22:35 4 mg Q6H PRN Administration NAUSEA OR VOMITING Protocol Pantoprazole Sodium 40 mg 01/19/25 09:00 01/20/25 09:36 Pantoprazole Inj 40 Mg Vial IVP 02/18/25 08:59 40 mg BID DELIA Administration Sennosides 1 tab 01/18/25 22:36 Senna Tablet PO 02/17/25 22:35 QDAY PRN constipation Protocol Thiamine HCl 100 mg 01/18/25 22:45 01/20/25 09:35 Thiamine 100 Mg Tablet PO 01/23/25 22:44 100 mg BID DELIA Administration Plan Patient is a 54-year-old female with a previous medical history of peptic ulcer disease, COPD, active smoker, alcohol use, methamphetamine use, fentanyl use who came to the ED on 01/18/2025 due to symptoms of alcohol withdrawal and dark bloody stools. Patient is going to be admitted for alcohol withdrawal and suspected GI bleed. #Alcohol withdrawal #Alcohol use disorder Patient has a history of alcohol abuse and has been using methamphetamine. CIWA score on admission was 16. Last drink was morning before admission. Typically drinks every day (half a bottle of whiskey?). Plan: ? CIWA protocol ? Chlordiazepoxide 50 mg every 8 hours p.o. ? IV lorazepam 1 mg every 8 hours as needed for breakthrough agitation ? Thiamine p.o. daily ? Folic acid p.o. daily ? clinical services assistant consult #workup upper GI bleed #Transaminitis Patient reports a history of stomach ulcers and reports dark bloody stools. AST 134, ALT 69 on admission. No coagulopathy. Hepatitis B panel negative, CT A/P possible gallbladder polyp vs small stones. Normal CBD. Plan: ? Pantoprazole 40 mg twice daily ? Monitor CBC, CMP - transfuse if hemoglobin less than 7 ? GI consulted: possible EGD today. ?N.p.o. #History of opioid abuse #History of methamphetamine use #Polysubstance use disorder Patient has been on methadone therapy and is actively using methamphetamine. Will hold methadone for now due to active alcohol abuse. Plan: ? Consider addiction medicine follow-up outpatient -started methadone 60mg daily. instructed to follow-up with clinic after discharge. #Active smoker Plan: ? Nicotine patch Health maintenance: FEN: NPO DVT prophylaxis: SCDs GI prophylaxis: pantoprazole 40 mg bid Dispo: telemetry CODE STATUS: Full code The patient's management plan was discussed with my attending physician Dr. Nur. Agata Valderrama, PGY-1 Attending Provider Attestation/Addendum 55-year-old female with alcohol use, admitted for alcohol withdrawal, GI bleed. Patient takes methadone per report. CIWA protocol started. Workup for GI bleed pending. Will verify dose of methadone. Discussed with housestaff
--- NOTE | 2025-01-20 19:32 | SUR.PHASEI ---
Pt. [place], pt. is resting, eyes closed, responds to verbal commands, VSS, no c/o pain or nausea at this time. Report received from Ayesha HENRY.
--- NOTE | 2025-01-20 19:58 | SUR.PHASEI ---
Called and gave report on pt. s/p procedure to Maura HENRY on telemetry.
--- NOTE | 2025-01-20 20:02 | SUR.PHASEI ---
Pt. transferred to room 262 via gurney by staff, VSS, no c/o pain or nausea at this time, pt. is tolerating ice chips, Maura HENRY assumed care of pt.
[2025-01-20] MEDS: NA SU/NAHCO3/KC/PEG (Golytely) 4,000 ML BTL 4000 ML PO (21:30)
[2025-01-21] VITALS (9 sets, daily range): BP systolic 109–121; BP diastolic 73–92; PULSE 81–112; RESP 13–100; TEMP 36.2–36.4; O2SAT 97–100; BMI 29.9
[2025-01-21] MEDS: LORazepam 0.5 MG TABLET 1 MG PO (00:09)
[2025-01-21] MEDS: chlordiazePOXIDE HCl 25 MG CAPSULE 50 MG PO (05:06)
[2025-01-21 06:02] LABS: Basophils % (Auto) 1 % (0-2.5); Eosinophils # (Auto) 0.2 Thou/mm3 (0.0-0.5); Eosinophils % (Auto) 4 % (0-10); Hematocrit 31.9 % (36.0-46.0); Hemoglobin 9.9 g/dL (12.0-16.0); Immature Granulocytes % (Auto) 0 % (0-0); Immature Granulocytes Auto 0.02 Thou/mm3 (0.00-0.00); Lymphocytes # (Auto) 1.8 Thou/mm3 (1.0-4.8); Lymphocytes % (Auto) 34 % (10-50); Mean Corpuscular Hemoglobin 28.3 pg (25.0-35.0); Mean Corpuscular Volume 91 fL (80-100); Monocytes # (Auto) 0.5 Thou/mm3 (0.0-0.8); Monocytes % (Auto) 9 % (0-12); Neutrophils # (Auto) 2.8 Thou/mm3 (1.8-7.7); Neutrophils % (Auto) 52 % (37-80); Nucleated Red Blood Cell % 0 /100 WBC (0); Platelet Count 122 Thou/mm3 (140-440); RDW Standard Deviation 65.5 fL (36.4-46.3); White Blood Count 5.4 Thou/mm3 (3.6-11.0)
[2025-01-21 07:02] LABS: Alanine Aminotransferase 52 U/L (10-49); Albumin/Globulin Ratio 1.3 (1.2-2.2); Alkaline Phosphatase 233 U/L (46-116); Anion Gap 7 (7-16); Aspartate Amino Transferase 129 U/L (0-34); BUN/Creatinine Ratio 10 Ratio (12-20); Bilirubin,Total 0.4 mg/dL (0.3-1.2); Blood Urea Nitrogen 6 mg/dL (9-23); Calcium 8.2 mg/dL (8.3-10.6); Carbon Dioxide 24.1 mMol/L (20.0-31.0); Chloride 109 mMol/L (98-107); Creatinine (Component) 0.6 mg/dL (0.6-1.3); Estimated Creatinine Clearance 103.4 mL/min (>60); Globulin 2.4 gm/dL (2.3-3.5); Glucose 72 mg/dL (74-106); Magnesium 2.2 mg/dL (1.6-2.6); Osmolality,Calculated 276 (275-295); Potassium 3.8 mMol/L (3.4-5.1); Sodium 140 mMol/L (136-145); Total Protein 5.4 gm/dL (5.7-8.2); eGFR > 60 See Note
[2025-01-21] MEDS: THIAMINE 100 MG TABLET PO ×2 (08:16→20:56)
[2025-01-21] MEDS: PANTOPRAZOLE INJ 40 MG VIAL IVP ×2 (08:16→20:56)
[2025-01-21] MEDS: FOLIC ACID 1 MG TABLET PO ×2 (08:16→20:56)
[2025-01-21] MEDS: cefTRIAXone/D5w 1gm IV premix 1 GM/50 ML BAG IV (08:17)
[2025-01-21] MEDS: chlordiazePOXIDE HCl 25 MG CAPSULE PO ×2 (08:32→20:56)
[2025-01-21] MEDS: METHADONE SOLUTION 1 MG/1 ML 60 MG PO (08:32)
--- NOTE | 2025-01-21 08:50 | PC.SS ---
Follow up note: Wean off Librium, Colonoscopy pending, and on CWAL Protocol. Pt will return home upon dc.
[2025-01-21] MEDS: NA SU/NAHCO3/KC/PEG (Golytely) 4,000 ML BTL 4000 ML PO (12:28)
[2025-01-21] MEDS: DEXTROSE 5%-NS 1,000 ML 100 ML IV (12:29)
--- NOTE | 2025-01-21 15:06 | PD.RESPRO ---
Documentation for date of: 01/21/25 Subjective Subjective Interval history: Labs significant from AST 129, ALT 52 and ALP 233. Patient underwent EGD yesterday which indicated gastritis and gastroesophageal junction showing erosions, biopsies were taken. Patient is to undergo GoLytely today and plan for colonoscopy tonight. We started to wean off Librium, started patient on 25 mg twice daily. Physical therapy ordered. Vitals and labs within normal limits. Exam Vital Signs Temp Pulse Resp BP Pulse Ox O2 Del Method O2 Flow Rate 97.1 F 88 15 118/88 H 99 Room Air 3 01/21/25 11:33 01/21/25 11:33 01/21/25 11:33 01/21/25 11:01/21/25 11:01/21/25 11:01/20/25 19:20 Narrative Exam General: middle aged female, sleeping, lethargic HEENT: Normocephalic, atraumatic, mucous membranes dry, no icterus, no obvious sweats Heart: Tachycardic rate and regular rhythm, no murmurs. Lungs: Clear to auscultation with no wheezing or crackles. Abdomen: Soft, nondistended, nontender, positive bowel sounds. ?No guarding or rebound tenderness. Neurologic: Alert and oriented x3, hand tremors in extension, and patient able to move all 4 extremities. Extremities: No edema. Skin: No rash or ecchymoses. Objective Labs 01/21/25 04:45 01/21/25 04:45 Labs: Laboratory Results - last 24 hr 01/21/25 04:45 WBC 5.4 RBC 3.50 L Hgb 9.9 L Hct 31.9 L MCV 91 MCH 28.3 MCHC 31.0 RDW Std Deviation 65.5 H Plt Count 122 L Neut % (Auto) 52 Lymph % (Auto) 34 [place] % (Auto) 9 Eos % (Auto) 4 Baso % (Auto) 1 Neut # (Auto) 2.8 Lymph # (Auto) 1.8 [place] # (Auto) 0.5 Eos # (Auto) 0.2 Baso # (Auto) 0.0 Immature Gran # (Auto) 0.02 H Absolute Nucleated RBC 0.00 Immature Gran % 0 Nucleated RBC % 0 Sodium 140 Potassium 3.8 Chloride 109 H Carbon Dioxide 24.1 Anion Gap 7 BUN 6 L Creatinine 0.6 Estim Creat Clear Calc 103.4 eGFR > 60 BUN/Creatinine Ratio 10 L Glucose 72 L Calculated Osmolality 276 Calcium 8.2 L Corrected Calcium 9.0 Phosphorus 3.0 Magnesium 2.2 Total Bilirubin 0.4 AST 129 H ALT 52 H Alkaline Phosphatase 233 H D Total Protein 5.4 L Albumin 3.0 L Globulin 2.4 Albumin/Globulin Ratio 1.3 Quality Measures Quality Measures VTE prophylaxis Assessment & Plan Assessment Current Active Medications: Generic Name Dose Route Start Last Admin Trade Name Freq PRN Reason Stop Dose Admin Acetaminophen 650 mg 01/18/25 22:36 01/20/25 09:35 Acetaminophen 325 Mg Tablet PO 02/17/25 22:35 650 mg Q6H PRN Administration Fever >100.3 or pain 1-3 Chlordiazepoxide HCl 25 mg 01/21/25 09:00 01/21/25 08:32 Chlordiazepoxide Hcl 25 Mg Capsule PO 01/26/25 08:59 25 mg BID DELIA Administration Folic Acid 1 mg 01/18/25 22:45 01/21/25 08:16 Folic Acid 1 Mg Tablet PO 01/23/25 22:44 1 mg BID DELIA Administration Ceftriaxone Sodium/Dextrose 1 gm in 50 mls @ 100 mls/hr 01/18/25 22:54 01/21/25 08:47 Rocephin/D5w 1gm Iv Premix IV 01/25/25 22:53 Infused QDAY DELIA Infusion Dextrose/Sodium Chloride 1,000 mls @ 100 mls/hr 01/18/25 23:00 01/21/25 12:29 D5-Ns IV 02/17/25 22:59 100 mls/hr .Q10H DELIA Administration Lorazepam 0.5 mg 01/18/25 22:38 Lorazepam 0.5 Mg Tablet PO 01/23/25 22:37 Q4HR PRN CIWA Score 2-6 Lorazepam 1 mg 01/18/25 22:38 01/21/25 00:09 Lorazepam 0.5 Mg Tablet PO 01/23/25 22:37 1 mg Q4HR PRN Administration CIWA SCORE 7-11 Lorazepam 2 mg 01/18/25 22:38 01/20/25 02:07 Lorazepam 0.5 Mg Tablet PO 01/23/25 22:37 2 mg Q4HR PRN Administration CIWA SCORE 12-15 Lorazepam 1 mg 01/19/25 00:37 01/20/25 05:27 Lorazepam 2 Mg/Ml Vial IVP 01/24/25 00:36 1 mg Q8HR PRN Administration Breakthrough agitation Methadone HCl 60 mg 01/20/25 10:30 01/21/25 08:32 Methadone Solution 1 Mg/1 Ml PO 01/25/25 10:29 60 mg QDAY DELIA Administration Ondansetron HCl 4 mg 01/18/25 22:36 01/20/25 09:37 Ondansetron Inj 2 Mg/Ml Inj 2 Ml IV 02/17/25 22:35 4 mg Q6H PRN Administration NAUSEA OR VOMITING Protocol Pantoprazole Sodium 40 mg 01/19/25 09:00 01/21/25 08:16 Pantoprazole Inj 40 Mg Vial IVP 02/18/25 08:59 40 mg BID DELIA Administration Sennosides 1 tab 01/18/25 22:36 Senna Tablet PO 02/17/25 22:35 QDAY PRN constipation Protocol Thiamine HCl 100 mg 01/18/25 22:45 01/21/25 08:16 Thiamine 100 Mg Tablet PO 01/23/25 22:44 100 mg BID DELIA Administration Plan Patient is a 54-year-old female with a previous medical history of peptic ulcer disease, COPD, active smoker, alcohol use, methamphetamine use, fentanyl use who came to the ED on 01/18/2025 due to symptoms of alcohol withdrawal and dark bloody stools. Patient is going to be admitted for alcohol withdrawal and suspected GI bleed. #Alcohol withdrawal #Alcohol use disorder Patient has a history of alcohol abuse and has been using methamphetamine. CIWA score on admission was 16. Last drink was morning before admission. Typically drinks every day (half a bottle of whiskey?). Plan: ? CIWA protocol ? Chlordiazepoxide 25 mg every 12 hours p.o. ? IV lorazepam 1 mg every 8 hours as needed for breakthrough agitation ? Thiamine p.o. daily ? Folic acid p.o. daily ? social services manager consult #workup upper GI bleed #Transaminitis Patient reports a history of stomach ulcers and reports dark bloody stools. AST 134, ALT 69 on admission. No coagulopathy. Hepatitis B panel negative, CT A/P possible gallbladder polyp vs small stones. Normal CBD. EGD showed GE junction erosions and gastritis, biopsies taken Plan: ? Pantoprazole 40 mg twice daily ? Monitor CBC, CMP - transfuse if hemoglobin less than 7 ? GI Dr. Chávez onboard: possible EGD today. #History of opioid abuse #History of methamphetamine use #Polysubstance use disorder Patient has been on methadone therapy and is actively using methamphetamine. Will hold methadone for now due to active alcohol abuse. Plan: ? Consider addiction medicine follow-up outpatient - Continue home-methadone 60mg daily. instructed to follow-up with clinic after discharge. #Active smoker Plan: ? Nicotine patch Health maintenance: FEN: GoLytely, colonoscopy pending DVT prophylaxis: SCDs GI prophylaxis: pantoprazole 40 mg bid Dispo: telemetry CODE STATUS: Full code This patient care was discussed with my attending Dr. Liudmila Carson MD PGY-2 Disclaimer: Minor errors in foundation relations manager may be present since this note was dictated by speech recognition software. Attending Provider Attestation/Addendum Patient is alert and oriented. She has no hematemesis no melena. She is afebrile. She had EGD. Patient has erosion at gastroesophageal junction. Annamaria-en-Y anastomosis was found and shallow ulcer noted at anastomotic site. She has gastritis. She will continue on PPI. The patient is on methadone.
--- NOTE | 2025-01-21 16:20 | PC.SS ---
SS met with patient and her hospice case manager, Alexis from [facility] who is requesting pt d[facility]. SS has explained about the [place]. Pt and Alexis are requesting for SS to send inquiry to see if they will accept pt. SS has called and spoke to Leticia at [facility] in [place], phone# [phone] who provided fax # [phone] and explained pt has to be independent cannot use walker, wheelchair, or cane. SS has faxed inquiry. SS also attempted to contact Alexis from [place] but was unsuccessful.
[2025-01-21] MEDS: LORazepam 0.5 MG TABLET 2 MG PO (19:39)
--- NOTE | 2025-01-21 19:42 | ESPR_ITS ---
Documentation for date of: 01/21/25 Subjective Subjective Interval history: Patient evaluated She was scheduled for a colonoscopy today but she is not clear additional GoLytely will be given I have spoken to the patient and she is going to help drink the GoLytely Exam Vital Signs Temp Pulse Resp BP Pulse Ox O2 Del Method O2 Flow Rate 97.4 F 94 17 116/81 97 Room Air 3 01/21/25 16:00 01/21/25 16:00 01/21/25 16:00 01/21/25 16:00 01/21/25 16:00 01/21/25 16:00 01/20/25 19:20 Constitutional Comments: Alert oriented Routine Respiratory Exam Comments: Normal to auscultation Objective Labs 01/21/25 04:45 01/21/25 04:45 Labs: Laboratory Results - last 24 hr 01/21/25 04:45 WBC 5.4 RBC 3.50 L Hgb 9.9 L Hct 31.9 L MCV 91 MCH 28.3 MCHC 31.0 RDW Std Deviation 65.5 H Plt Count 122 L Neut % (Auto) 52 Lymph % (Auto) 34 [place] % (Auto) 9 Eos % (Auto) 4 Baso % (Auto) 1 Neut # (Auto) 2.8 Lymph # (Auto) 1.8 [place] # (Auto) 0.5 Eos # (Auto) 0.2 Baso # (Auto) 0.0 Immature Gran # (Auto) 0.02 H Absolute Nucleated RBC 0.00 Immature Gran % 0 Nucleated RBC % 0 Sodium 140 Potassium 3.8 Chloride 109 H Carbon Dioxide 24.1 Anion Gap 7 BUN 6 L Creatinine 0.6 Estim Creat Clear Calc 103.4 eGFR > 60 BUN/Creatinine Ratio 10 L Glucose 72 L Calculated Osmolality 276 Calcium 8.2 L Corrected Calcium 9.0 Phosphorus 3.0 Magnesium 2.2 Total Bilirubin 0.4 AST 129 H ALT 52 H Alkaline Phosphatase 233 H D Total Protein 5.4 L Albumin 3.0 L Globulin 2.4 Albumin/Globulin Ratio 1.3 Impressions Impression: Acute posthemorrhagic anemia Distal esophageal erosion Anastomotic site ulcer of the Annamaria-en-Y gastrojejunostomy Plan continue GoLytely prep For colonoscopy to rule out any synchronous lesion in the colon Assessment & Plan A&P Narrative Occult GI bleeding Plan Consent obtained for fiberoptic esophagogastroduodenoscopy with possible biopsy possible therapeutic intervention under intravenous moderate sedation Scheduled for tomorrow Octreotide infusion at 50 mcg/h Serial CBC Transfuse PRBC if the hemoglobin hematocrit drops below 7 g Other medical problems include Alcohol and methadone withdrawal COPD Anxiety 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
[2025-01-22] VITALS (17 sets, daily range): BP systolic 93–130; BP diastolic 58–97; PULSE 81–101; RESP 12–21; TEMP 36.3–36.5; O2SAT 95–100; BMI 31.5; BMI 14.0
[2025-01-22] MEDS: LORazepam 0.5 MG TABLET 2 MG PO (01:15)
[2025-01-22] MEDS: DEXTROSE 5%-NS 1,000 ML 100 ML IV ×2 (03:17→13:57)
[2025-01-22] MEDS: LORazepam 0.5 MG TABLET PO ×2 (06:04→21:36)
[2025-01-22] MEDS: FOLIC ACID 1 MG TABLET PO ×2 (09:07→20:05)
[2025-01-22] MEDS: cefTRIAXone/D5w 1gm IV premix 1 GM/50 ML BAG IV (09:07)
[2025-01-22] MEDS: PANTOPRAZOLE INJ 40 MG VIAL IVP ×2 (09:07→20:04)
[2025-01-22] MEDS: chlordiazePOXIDE HCl 25 MG CAPSULE PO ×2 (09:07→20:04)
[2025-01-22] MEDS: METHADONE SOLUTION 1 MG/1 ML 60 MG PO (09:19)
[2025-01-22] MEDS: THIAMINE 100 MG TABLET PO ×2 (09:20→20:05)
--- NOTE | 2025-01-22 11:13 | ESPR_ITS ---
<Statement entered by Scar Carson MD - 01/23/25 10:57> I discussed with and supervised the business analytics intern physician involved in the care of this patient. Patient assessment and plan was discussed with entire medicine team, including my attending. I agree with the assessment and plan as documented by business analytics intern doctor. Patient care was discussed with my attending physician Dr. Liudmila Carson, PGY-2 Documentation for date of: 01/22/25 Subjective Subjective Interval history: Patient examined at bedside. No events overnight. Complains of some anxiety in anticipation to colonoscopy. Vitals are stable. Labs unremarkable with stable hemoglobin 9-10. She has completed almost 2 gallons of GoLytely prep for colonoscopy today. Slowly wean Librium. Will adjust dose to 25 mg daily starting tomorrow. Continue CIWA. PT eval pending. Exam Vital Signs Temp Pulse Resp BP Pulse Ox O2 Del Method O2 Flow Rate 97.4 F 83 17 107/82 97 Room Air 3 01/22/25 07:57 01/22/25 08:00 01/22/25 07:57 01/22/25 07:57 01/22/25 07:57 01/22/25 07:57 01/20/25 19:20 Narrative Exam General: middle aged female, sleeping, lethargic HEENT: Normocephalic, atraumatic, mucous membranes dry, no icterus, no obvious sweats Heart: Tachycardic rate and regular rhythm, no murmurs. Lungs: Clear to auscultation with no wheezing or crackles. Abdomen: Soft, nondistended, nontender, positive bowel sounds. ?No guarding or rebound tenderness. Neurologic: Alert and oriented x3, hand tremors in extension, and patient able to move all 4 extremities. Extremities: No edema. Skin: No rash or ecchymoses. Objective Labs 01/23/25 05:46 01/23/25 05:46 Quality Measures Quality Measures VTE prophylaxis Assessment & Plan Assessment Current Active Medications: Generic Name Dose Route Start Last Admin Trade Name Freq PRN Reason Stop Dose Admin Acetaminophen 650 mg 01/18/25 22:36 01/20/25 09:35 Acetaminophen 325 Mg Tablet PO 02/17/25 22:35 650 mg Q6H PRN Administration Fever >100.3 or pain 1-3 Chlordiazepoxide HCl 25 mg 01/21/25 09:00 01/22/25 09:07 Chlordiazepoxide Hcl 25 Mg Capsule PO 01/26/25 08:59 25 mg BID DELIA Administration Folic Acid 1 mg 01/18/25 22:45 01/22/25 09:07 Folic Acid 1 Mg Tablet PO 01/23/25 22:44 1 mg BID DELIA Administration Ceftriaxone Sodium/Dextrose 1 gm in 50 mls @ 100 mls/hr 01/18/25 22:54 01/22/25 09:07 Rocephin/D5w 1gm Iv Premix IV 01/25/25 22:53 100 mls/hr QDAY DELIA Administration Dextrose/Sodium Chloride 1,000 mls @ 100 mls/hr 01/18/25 23:00 01/22/25 03:17 D5-Ns IV 02/17/25 22:59 100 mls/hr .Q10H DELIA Administration Lorazepam 0.5 mg 01/18/25 22:38 01/22/25 06:04 Lorazepam 0.5 Mg Tablet PO 01/23/25 22:37 0.5 mg Q4HR PRN Administration CIWA Score 2-6 Lorazepam 1 mg 01/18/25 22:38 01/21/25 00:09 Lorazepam 0.5 Mg Tablet PO 01/23/25 22:37 1 mg Q4HR PRN Administration CIWA SCORE 7-11 Lorazepam 2 mg 01/18/25 22:38 01/22/25 01:15 Lorazepam 0.5 Mg Tablet PO 01/23/25 22:37 2 mg Q4HR PRN Administration CIWA SCORE 12-15 Lorazepam 1 mg 01/19/25 00:37 01/20/25 05:27 Lorazepam 2 Mg/Ml Vial IVP 01/24/25 00:36 1 mg Q8HR PRN Administration Breakthrough agitation Methadone HCl 60 mg 01/20/25 10:30 01/22/25 09:19 Methadone Solution 1 Mg/1 Ml PO 01/25/25 10:29 60 mg QDAY DELIA Administration Ondansetron HCl 4 mg 01/18/25 22:36 01/20/25 09:37 Ondansetron Inj 2 Mg/Ml Inj 2 Ml IV 02/17/25 22:35 4 mg Q6H PRN Administration NAUSEA OR VOMITING Protocol Pantoprazole Sodium 40 mg 01/19/25 09:00 01/22/25 09:07 Pantoprazole Inj 40 Mg Vial IVP 02/18/25 08:59 40 mg BID DELIA Administration Sennosides 1 tab 01/18/25 22:36 Senna Tablet PO 02/17/25 22:35 QDAY PRN constipation Protocol Thiamine HCl 100 mg 01/18/25 22:45 01/22/25 09:20 Thiamine 100 Mg Tablet PO 01/23/25 22:44 100 mg BID DELIA Administration Plan Patient is a 54-year-old female with a previous medical history of peptic ulcer disease, COPD, active smoker, alcohol use, methamphetamine use, fentanyl use who came to the ED on 01/18/2025 due to symptoms of alcohol withdrawal and dark bloody stools. Patient is going to be admitted for alcohol withdrawal and suspected GI bleed. #Alcohol withdrawal #Alcohol use disorder Patient has a history of alcohol abuse and has been using methamphetamine. CIWA score on admission was 16. Last drink was morning before admission. Typically drinks every day (half a bottle of whiskey?). Plan: ? CIWA protocol ? Chlordiazepoxide 25 mg BID--daily starting tomorrow ? IV lorazepam 1 mg every 8 hours as needed for breakthrough agitation ? Thiamine p.o. daily ? Folic acid p.o. daily ? business services intern consult #workup upper GI bleed #Transaminitis Patient reports a history of stomach ulcers and reports dark bloody stools. AST 134, ALT 69 on admission. No coagulopathy. Hepatitis B panel negative, CT A/P possible gallbladder polyp vs small stones. Normal CBD. EGD showed GE junction erosions and gastritis, biopsies taken Plan: ? Pantoprazole 40 mg twice daily ? Monitor CBC, CMP - transfuse if hemoglobin less than 7 ? GI Dr. Chávez onboard: Purvi prep for colonoscopy today #History of opioid abuse #History of methamphetamine use #Polysubstance use disorder Patient has been on methadone therapy and is actively using methamphetamine. Will hold methadone for now due to active alcohol abuse. Plan: ? Consider addiction medicine follow-up outpatient - Continue home-methadone 60mg daily. instructed to follow-up with clinic after discharge. #Active smoker Plan: ? Nicotine patch Health maintenance: FEN: GoLytely, colonoscopy pending DVT prophylaxis: SCDs GI prophylaxis: pantoprazole 40 mg bid Dispo: telemetry CODE STATUS: Full code This patient care was discussed with my attending Dr. Liudmila Valderrama, PGY 1 Attending Provider Attestation/Addendum I discussed with and supervised the resident physician who took care of this patient. I agree with the assessment and plan as above. She had GoLytely prep. Scheduled for colonoscopy today. Patient remains alert and oriented. No leda rectal bleeding reported. She has good urine output.
--- NOTE | 2025-01-22 12:11 | PC.SS ---
Update: Plan is for the patient to obtain colonoscopy. Dr. Chávez to conduct procedure.
--- NOTE | 2025-01-22 12:13 | PC.PT ---
01/22/2025 PT eval performed after patient given medications and patient became groggy before ambulating in [place] w/ PT so PT assisted patient back to bed w/ 3 rails up and bed alarm on w/ RN Roxanna notified that patient back and bed and appears to be sleeping as well as rails/ bed alarm for pt safety.
[2025-01-23] VITALS: BP 91/58; PULSE 88; RESP 15; TEMP 36.6; O2SAT 95
[2025-01-23] MEDS: LORazepam 0.5 MG TABLET PO (03:26)
[2025-01-23 03:58] VITALS: BP 95/58; PULSE 85; RESP 15; TEMP 36.3; O2SAT 95
[2025-01-23 04:00] VITALS: PULSE 88
[2025-01-23] MEDS: ONDANSETRON INJ 2 MG/ML INJ 2 ML 4 MG IV (04:10)
[2025-01-23] MEDS: DEXTROSE 5%-NS 1,000 ML 100 ML IV (04:11)
[2025-01-23 06:00] VITALS: BMI 33.2
[2025-01-23 06:38] LABS: Alanine Aminotransferase 37 U/L (10-49); Albumin, Serum 2.6 gm/dL (3.5-5.0); Albumin/Globulin Ratio 1.2 (1.2-2.2); Alkaline Phosphatase 187 U/L (46-116); Anion Gap 6 (7-16); Aspartate Amino Transferase 39 U/L (0-34); BUN/Creatinine Ratio 10 Ratio (12-20); Bilirubin,Total 0.2 mg/dL (0.3-1.2); Blood Urea Nitrogen 5 mg/dL (9-23); Calcium 7.8 mg/dL (8.3-10.6); Calcium (Corrected) 8.9 mg/dL (8.5-10.1); Carbon Dioxide 24.9 mMol/L (20.0-31.0); Chloride 107 mMol/L (98-107); Creatinine (Component) 0.5 mg/dL (0.6-1.3); Estimated Creatinine Clearance 127.6 mL/min (>60); Globulin 2.2 gm/dL (2.3-3.5); Glucose 89 mg/dL (74-106); Osmolality,Calculated 271 (275-295); Potassium 3.6 mMol/L (3.4-5.1); Sodium 138 mMol/L (136-145); Total Protein 4.8 gm/dL (5.7-8.2); eGFR > 60 See Note
[2025-01-23 07:03] LABS: Basophils % (Auto) 0 % (0-2.5); Eosinophils # (Auto) 0.2 Thou/mm3 (0.0-0.5); Eosinophils % (Auto) 3 % (0-10); Hematocrit 25.8 % (36.0-46.0); Immature Granulocytes % (Auto) 1 % (0-0); Immature Granulocytes Auto 0.03 Thou/mm3 (0.00-0.00); Lymphocytes # (Auto) 1.5 Thou/mm3 (1.0-4.8); Lymphocytes % (Auto) 24 % (10-50); Mean Corpuscular HGB Conc 32.2 g/dl (31.0-37.0); Mean Corpuscular Hemoglobin 29.3 pg (25.0-35.0); Mean Corpuscular Volume 91 fL (80-100); Monocytes # (Auto) 0.7 Thou/mm3 (0.0-0.8); Monocytes % (Auto) 11 % (0-12); Neutrophils # (Auto) 3.9 Thou/mm3 (1.8-7.7); Neutrophils % (Auto) 62 % (37-80); Nucleated Red Blood Cell % 0 /100 WBC (0); Platelet Count 116 Thou/mm3 (140-440); RDW Standard Deviation 63.7 fL (36.4-46.3); Red Blood Count 2.83 Miln/mm3 (4.00-5.20); White Blood Count 6.3 Thou/mm3 (3.6-11.0)
[2025-01-23 07:07] LABS: Hemoglobin 8.3 g/dL (12.0-16.0)
[2025-01-23 08:00] VITALS: BP 132/81; PULSE 79; PULSE 93; RESP 24; TEMP 36.8; O2SAT 98
[2025-01-23] MEDS: PANTOPRAZOLE INJ 40 MG VIAL IVP (10:03)
[2025-01-23] MEDS: METHADONE SOLUTION 1 MG/1 ML 60 MG PO (10:04)
[2025-01-23] MEDS: cefTRIAXone/D5w 1gm IV premix 1 GM/50 ML BAG IV (10:04)
[2025-01-23] MEDS: chlordiazePOXIDE HCl 25 MG CAPSULE PO (10:05)
[2025-01-23] MEDS: POTASSIUM CHLORIDE 20 mEq TABCR PO (10:05)
[2025-01-23] MEDS: THIAMINE 100 MG TABLET PO (10:05)
[2025-01-23] MEDS: FOLIC ACID 1 MG TABLET PO (10:05)
--- NOTE | 2025-01-23 10:56 | ESDS_ITS ---
Planned Discharge Date 01/23/25 DS: Providers Provider Date of admission: 01/18/25 22:35 Primary care physician: Physician No Primary/Family Admitting Provider: Tess Barnes MD Attending Provider on Admission: David Nur MD Consults: 01/19/25 06:07 Consult to Gastroenterology Stat Comment: Consulting Provider: Idalmis Chávez 01/21/25 16:16 Referral Physical Therapy Routine Comment: Physician Instructions: Attending Provider on DC: David Nur MD Discharging Provider: David Nur MD DS: Diagnosis Problem List Completed Was Problem List Reviewed/Reconciled?: Yes Hospital Course Hospital Course Hospital course: Reason for hospitalization: alcohol withdrawl, GI bleed Catina Jacobson is 54 yr female with PMH of peptic ulcer disease, COPD, active smoker, alcohol use, gastric bypass, methamphetamine use, fentanyl use who presented to [facility] ED on 01/18/25 due to symptoms of alcohol withdrawal and dark stools. Last alcohol intake was morning of admission. Had headache, feeling shaky, and sensitive to sounds/light. She usually drinks a half of the bottle of whiskey per day. Patient is on methadone given by [facility]. GI Dr. Chávez was consulted. Patient admitted for GI bleed workup and placed on CIWA for alcohol withdrawl. Hb was 12.1, U tox was positive for methamphetamine. EGD was completed on 01/20 which showed gastritis, single erosion at GE junction. Biopsies are pending. Colonsocopy completed on 01/22 which showed 2 polyps. One medium (7-9mm) and one large (1cm>) which were removed. During hospitalization, withdrawl symptoms improved. Patient had no seizures. She kept requesting methadone. Typically goes to [facility] in [place] but was sent to [facility] on [address] for a courtesey dose of 80mg (liquid) on 01/11. Patient lost to follow up the next day. During stay, she was started on methadone 60mg daily and instructed to follow up with clinic after discharge. Patient is now in stable condition and ready for discharge. Recommendations were given as below. Discharge Recommendations: Resume your previous medications. Follow up with PCP in 1-2 weeks. Follow up with GI doctor in 1-2 weeks for biopsy results. You will need another colonoscopy in 5 yrs. If you do not have a PCP, you can call [facility] at [phone]. Follow up with the methadone clinic for management of methadone. Hospital Diagnoses: #Alcohol withdrawal #Alcohol use disorder #workup upper GI bleed #Transaminitis #History of opioid abuse #History of methamphetamine use #Polysubstance use disorder #Active smoker The patient's management plan was discussed with my attending physician Dr. Nur. Agata Valderrama MD, PGY-1 Time spent discussing smoking cessation with patient: more than 10 minutes Time Spent with Patient Time attestation: Total time spent providing and/or coordinating discharge services: Time spent: Greater than 30 minutes Exam Vital Signs Temp Pulse Resp BP Pulse Ox O2 Del Method O2 Flow Rate 98.2 F 93 24 H 132/81 H 98 Room Air 3 01/23/25 08:00 01/23/25 08:00 01/23/25 08:00 01/23/25 08:00 01/23/25 08:00 01/23/25 08:00 01/22/25 15:11 Narrative Exam General: middle aged female, unkempt, no distress, cooperative HEENT: Normocephalic, atraumatic, mucous membranes dry, no icterus, no obvious sweats Heart: Tachycardic rate and regular rhythm, no murmurs. Lungs: Clear to auscultation with no wheezing or crackles. Abdomen: Soft, nondistended, nontender, positive bowel sounds. ?No guarding or rebound tenderness. Neurologic: Alert and oriented x3, no tremors, and patient able to move all 4 extremities. Extremities: No edema. Skin: No rash or ecchymoses. Discharge Plan Plan Patient Disposition: HOME (Self Care) Patient condition on transfer: Stable Prescriptions/Referrals Prescriptions/Med Rec: Continued buspirone 15 mg Tablet 15 mg PO TID Qty: 0 Combivent Respimat 20-100 mcg/actuation Mist 2 puff Inhalation QID PRN (Reason: sob) Qty: 0 sertraline 100 mg Tablet 100 mg PO QDAY ferrous sulfate [Iron (ferrous sulfate)] 325 mg (65 mg iron) Tablet 325 mg PO QDAY loratadine [Loradamed] 10 mg Tablet 10 mg PO QDAY trazodone 50 mg Tablet 50 mg PO HS lidocaine 5 % Adhesive Patch,Medicated 1 patch topical QDAY Latuda 40 mg Tablet 40 mg PO HS Discontinued benzonatate 100 mg capsule 100 mg PO TID Qty: 14 0RF azithromycin 500 mg tablet See Rx Instructions .ROUTE .COMPLEX Qty: 6 0RF Rx Instructions: take 500 mg today (day 1), then 250 mg for 4 days (days 2-5) doxycycline monohydrate 100 mg capsule 100 mg PO BID Qty: 14 0RF No Action potassium chloride 8 mEq Capsule, Extended Release 8 meq PO TID Referrals: Idalmis Chávez MD [Physician] - No Primary/Family,Physician [Primary Care Provider] - Patient/Caregiver Discharge Instructions Other Discharge Activity Instructions:: Resume your previous medications. Follow up with PCP in 1-2 weeks. Follow up with GI doctor in 1-2 weeks for biopsy results. You will need another colonoscopy in 5 yrs. If you do not have a PCP, you can call [facility] at [phone]. Follow up with the methadone clinic for management of methadone. Education Materials: Bleeding Gastrointestinal, Colorectal Cancer Screening Print Language: Singaporean Stand Alone Forms: Liz Award Info., Patient Portal Info Letter Discharge Order Discharge Orders: Discharge (Routine); Ordered 01/23/25 Ordered By: Scar Carson Quality Discharge Quality Measures VTE prophylaxis Attestestation MD Attestation I discussed with and supervised the resident physician who took care of this patient. I agree with the assessment and discharge plan as above.
[2025-01-23 12:00] VITALS: BP 110/74; PULSE 79; PULSE 92; RESP 15; TEMP 36.7; O2SAT 97
--- NOTE | 2025-01-23 15:14 | ESPR_ITS ---
Documentation for date of: 01/23/25 Subjective Subjective Interval history: Patient evaluated in the process being discharged Colonoscopy led to removal of a transverse colon polyp and rectal polyp histopathology pending Moderate diverticulosis Patient can be followed by the PCP no need for GI follow-up Exam Vital Signs Temp Pulse Resp BP Pulse Ox O2 Del Method O2 Flow Rate 98.1 F 92 15 110/74 97 Room Air 3 01/23/25 12:00 01/23/25 12:00 01/23/25 12:00 01/23/25 12:00 01/23/25 12:00 01/23/25 12:00 01/22/25 15:11 Objective Labs 01/23/25 05:46 01/23/25 05:46 Labs: Laboratory Results - last 24 hr 01/23/25 05:46 WBC 6.3 RBC 2.83 L Hgb 8.3 L Hct 25.8 L MCV 91 MCH 29.3 MCHC 32.2 RDW Std Deviation 63.7 H Plt Count 116 L Neut % (Auto) 62 Lymph % (Auto) 24 [facility] % (Auto) 11 Eos % (Auto) 3 Baso % (Auto) 0 Neut # (Auto) 3.9 Lymph # (Auto) 1.5 [facility] # (Auto) 0.7 Eos # (Auto) 0.2 Baso # (Auto) 0.0 Immature Gran # (Auto) 0.03 H Absolute Nucleated RBC 0.00 Immature Gran % 1 H Nucleated RBC % 0 Sodium 138 Potassium 3.6 Chloride 107 Carbon Dioxide 24.9 Anion Gap 6 L BUN 5 L Creatinine 0.5 L Estim Creat Clear Calc 127.6 eGFR > 60 BUN/Creatinine Ratio 10 L Glucose 89 Calculated Osmolality 271 L Calcium 7.8 L Corrected Calcium 8.9 Total Bilirubin 0.2 L AST 39 H ALT 37 Alkaline Phosphatase 187 H D Total Protein 4.8 L Albumin 2.6 L Globulin 2.2 L Albumin/Globulin Ratio 1.2 Impressions Impression: Transverse colon polyp Rectal polyp Diverticulosis left colon Continue current management Assessment & Plan A&P Narrative Occult GI bleeding Plan Consent obtained for fiberoptic esophagogastroduodenoscopy with possible biopsy possible therapeutic intervention under intravenous moderate sedation Scheduled for tomorrow Octreotide infusion at 50 mcg/h Serial CBC Transfuse PRBC if the hemoglobin hematocrit drops below 7 g Other medical problems include Alcohol and methadone withdrawal COPD Anxiety 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
[2025-01-23 16:00] VITALS: BP 144/84; PULSE 98; RESP 15; TEMP 36.4; O2SAT 97
== END 2025-01-23 16:13 | disposition home or self-care (01) | DRG 242 ==
LOC: SERX 20:32 → SERHOLD 23:06 → S2NX 01-19 02:55
PROVIDERS: Physician Assistant; Specialist; Student in an Organized Health Care Education/Training Program; Admitting Provider Student in an Organized Health Care Education/Training Program; Emergency Provider Emergency Medicine; Visit Provider Internal Medicine
PROC: 0DB68ZX Excision of Stomach, Via Natural or Artificial Opening Endoscopic, Diagnostic (ICD-10-PCS; CPT 43239; principal; 2025-01-20 19:00)
PROC: 0DJD8ZZ Inspection of Lower Intestinal Tract, Via Natural or Artificial Opening Endoscopic (ICD-10-PCS; CPT 45378; principal; 2025-01-22 14:30)
DX: K22.11 Ulcer of esophagus with bleeding (principal); K29.61 Other gastritis with bleeding; F10.239 Alcohol dependence with withdrawal, unspecified; F10.229 Alcohol dependence with intoxication, unspecified; Y90.0 Blood alcohol level of less than 20 mg/100 ml; J44.9 Chronic obstructive pulmonary disease, unspecified; F32.A Depression, unspecified; F15.90 Other stimulant use, unspecified, uncomplicated; K57.31 Diverticulosis of large intestine without perforation or abscess with bleeding; F17.210 Nicotine dependence, cigarettes, uncomplicated; F41.1 Generalized anxiety disorder; R74.01 Elevation of levels of liver transaminase levels; K64.9 Unspecified hemorrhoids; K62.1 Rectal polyp; K63.5 Polyp of colon; F11.23 Opioid dependence with withdrawal; I48.91 Unspecified atrial fibrillation; Z98.84 Bariatric surgery status; Z79.899 Other long term (current) drug therapy
CPT/HCPCS: 36415; 74177; 80053; 80074; 80307; 80320; 80329; 81001; 82140; 82271; 83735; 84100; 84132; 84443; 84484; 84703; 85025; 93005; 96365; 96366; 96372; 97161; 99285; A4217; A4649; J0696; J1200; J2060; J2250; J2405; J2470; J3010; J3411; J3475; J3490; J7030; J7042; Q0162; Q9967; A9270; G0480